=== PATIENT | female | born 2005 | race Caucasian/White ===

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

== ENCOUNTER → 2023-03-18 | Outpatient (CLI) | payer MEDICAID, SELFPAY ==
[2023-03-18 21:09] LABS: Chlamydia Trachomatis by PCR Negative (Negative); Neisserai gonorrhoeae by PCR Negative (Negative); Probe Check PASS; Sample Adequacy Control PASS; Specimen Processing Control PASS
== END | disposition home or self-care (01) ==
PROVIDERS: PCP Pediatrics; Referring Provider Nurse Practitioner Women's Health; Visit Provider Nurse Practitioner Women's Health
DX: Z11.3 Encounter for screening for infections with a predominantly sexual mode of transmission (principal)
CPT/HCPCS: 87491; 87591

== ENCOUNTER → 2024-11-26 | Outpatient (CLI) | payer OTHER, SELFPAY ==
[2024-11-26 11:16] LABS: Absolute Lymphocyte Count 2.36 X10^3/uL (0.83-4.51); Absolute Neutrophil Count 2.1 X10^3/uL (2.0-7.7); Basophil# 0.05 X10^3/uL; Eosinophil# 0.11 X10^3/uL; Eosinophils% 2.1 % (0-5); Hematocrit 43.9 % (37-47); Hemoglobin 14.2 g/dL (12.0-15.0); Lymphocyte # 2.36 X10^3/ul (0.83-4.51); Lymphocyte % 45.7 % (19-41); Mean Corp Hgb Conc 32.3 g/dL (32-36); Mean Corpuscular Hgb 29.8 pg (27.0-32.0); Mean Corpuscular Volume 92.2 fL (81-99); Mean Platelet Vol. 10.6 fl (6.2-12.0); Monocyte% 9.7 % (0-10); NRBC Flagged by Analyzer 0 % (0-5); Neutrophil # 2.13 X10^3/uL (2.7-7.7); Neutrophil % 41.3 % (47-70); Platelet Count 313 K/mm3 (150-450); RBC Distribution Width CV 12.2 % (11.6-14.6); RBC Distribution Width SD 41.4 fl (35.1-43.9); Red Blood Count 4.76 M/mm3 (4.2-5.4); White Blood Count 5.2 K/mm3 (4.4-11.0)
[2024-11-26 11:27] LABS: T4 Free Direct 0.98 ng/dL (0.76-1.46); Thyroid Stim Hormone (TSH) 0.833 uIU/mL (0.358-3.740)
== END | disposition home or self-care (01) ==
PROVIDERS: PCP Pediatrics; Referring Provider Nurse Practitioner Family; Visit Provider Nurse Practitioner Family
DX: Z13.29 Encounter for screening for other suspected endocrine disorder (principal); N91.2 Amenorrhea, unspecified
CPT/HCPCS: 36415; 84439; 84443; 85025

== ENCOUNTER → 2025-04-08 | Outpatient (CLI) | payer OTHER, SELFPAY ==
[2025-04-08 12:57] LABS: HIV Nonreactive (Nonreactive); Hepatitis B Surface Antigen Nonreactive (Nonreactive); Syphilis Antibodies Nonreactive (Nonreactive)
[2025-04-10 20:08] LABS: HCV Quant. RNA PCR HCV Not Detected IU/mL (.); HSV 1 IgG Non Reactive (Non Reactive); HSV 2 IgG Non Reactive (Non Reactive)
[2025-04-13 21:07] LABS: Chlamydia By Nucleic Acid AMP Negative (Negative); Gonococcus By Nucleic Acid AMP Negative (Negative)
== END | disposition home or self-care (01) ==
PROVIDERS: PCP Pediatrics; Referring Provider Nurse Practitioner Family; Visit Provider Nurse Practitioner Family
DX: Z11.3 Encounter for screening for infections with a predominantly sexual mode of transmission (principal); N89.8 Other specified noninflammatory disorders of vagina
CPT/HCPCS: 36415; 86695; 86696; 86703; 86780; 87070; 87205; 87340; 87491; 87522; 87591

== ENCOUNTER → 2025-09-14 | Outpatient (CLI) | payer OTHER, SELFPAY ==
[2025-09-17 06:08] LABS: Chlamydia By Nucleic Acid AMP Negative (Negative); Gonococcus By Nucleic Acid AMP Negative (Negative)
== END | disposition home or self-care (01) ==
LOC: LABSPEC 12:18
PROVIDERS: PCP Pediatrics; Referring Provider Nurse Practitioner Women's Health; Visit Provider Nurse Practitioner Women's Health
DX: Z12.4 Encounter for screening for malignant neoplasm of cervix (principal); Z11.3 Encounter for screening for infections with a predominantly sexual mode of transmission; N93.9 Abnormal uterine and vaginal bleeding, unspecified
CPT/HCPCS: 87070; 87205; 87491; 87591; 88175; G0145

== ENCOUNTER → 2025-10-05 | Outpatient (CLI) | payer OTHER, SELFPAY ==
--- NOTE | 2025-10-05 12:58 | US_ITS ---
PROCEDURE: PELVIC W/ TRANSVAGINAL 10/05/2025 REASON FOR EXAM: AUB. Frequent menses 2 times a month. LMP 09/12/2025 TECHNIQUE: Procedure Code: [id number] Modality: US Procedure: PELVIC W/ TRANSVAGINAL COMPARISON: None. FINDINGS: ENDOMETRIUM: Homogeneous. Normal thickness of 4.0 mm. No abnormal endometrial color Doppler flow. UTERUS: Retroverted. Normal size and contour measuring 7.6 x 2.5 x 4.6 cm. No fibroid detected. CERVIX: Normal size and contour. RIGHT OVARY: Normal size and appearance measuring 2.6 x 1.4 x 2.1 cm (volume 4.0 mL). Normal follicles. Normal blood flow. No adnexal mass. LEFT OVARY: Normal size and appearance measuring 3.1 x 1.6 x 2.3 cm (volume 5.7 mL). Normal follicles. Normal blood flow. No adnexal mass. FREE FLUID: Minimal left periadnexal free fluid. OTHER: Urinary bladder volume of 440.6 mL. US/Pelvic w/ Transvaginal IMPRESSION: UNREMARKABLE PELVIC ULTRASOUND. Reading Location: [id number]
--- OUTSIDE RECORDS SUMMARY | 2025-10-05 17:16 | XMS RPT_ITS | CCD ---
Author Organization [facility] ion [facility] Care Team Providers Care Central Office Operator Name Role Phone LEIDY DE PAZ DO Primary Care Physician [phone] Leidy De Paz Primary Care Provider JULIAN GILLIAM Attending Unavailable LEIDY DE PAZ Primary Care Unavailable LEIDY DE PAZ Primary Care Unavailable ANTHONY BLACK Attending Unavailable LEIDY DE PAZ Primary Care Unavailable ANDREINA AGUILAR Attending Unavailable LEIDY DE PAZ Referring Unavailable LEIDY DE PAZ Primary Care Unavailable REFERRED, SELF Referring Unavailable LEIDY DE PAZ Attending Unavailable TYLER MCCARTNEY Attending Unavailable LEIDY DE PAZ Primary Care Unavailable REFERRED, SELF Referring Unavailable NOMAN FOUNTAIN Attending Unavailable LEIDY DE PAZ Primary Care Unavailable REFERRED, SELF Referring Unavailable REFERRED, SELF Referring Unavailable LEIDY DE PAZ Attending Unavailable LEIDY DE PAZ Primary Care Unavailable REFERRED, SELF Referring Unavailable LEIDY DE PAZ Attending Unavailable LEIDY DE PAZ Primary Care Unavailable ZIA KEMP Attending Unavailable LEIDY DE PAZ Primary Care Unavailable LEIDY DE PAZ Referring Unavailable JAYLIN NOGUERA Attending Unavailable LEIDY DE PAZ Primary Care Unavailable REFERRED, SELF Referring Unavailable LEIDY DE PAZ Primary Care Unavailable REFERRED, SELF Referring Unavailable TYLER MCCARTNEY Attending Unavailable Dr. Leidy De Paz Primary Care Provider Dr. Leidy De Paz Referring Provider [phone] Serjio TELECOMMUNICATIONS FIELD ENGINEER, STEPHANY Zhang Attending Provider Dr. Leidy De Paz DO Primary Care Provider Dr. Leidy De Paz DO Referring Provider Sreekanth TELECOMMUNICATIONS FIELD ENGINEER-C, Attending Provider Sreekanth TELECOMMUNICATIONS FIELD ENGINEER-C, Referring Provider Serjio TELECOMMUNICATIONS FIELD ENGINEER, Leatha Attending Unavailable Serjio TELECOMMUNICATIONS FIELD ENGINEER, Leatha Referring Unavailable Kruepke, Leidy Primary Care Unavailable Barkman, Referring Unavailable Kruepke, Leidy Primary Care Unavailable Barkman, Attending Unavailable Kruepke, Leidy Primary Care Unavailable Kruepke, Leidy Referring Unavailable Barkman, Attending Unavailable Kruepke, Leidy Primary Care Unavailable Serjio TELECOMMUNICATIONS FIELD ENGINEER, Leatha Attending Unavailable Kruepke, Leidy Referring Unavailable Kruepke, Leidy Primary Care Unavailable Barkman, Attending Unavailable Kruepke, Leidy Referring Unavailable Barkman, Attending Unavailable Kruepke, Leidy Primary Care Unavailable Kruepke, Leidy Referring Unavailable Kruepke, Leidy Primary Care Unavailable Kruepke, Leidy Referring Unavailable Barkman, Attending Unavailable Barkman, Attending Unavailable Barkman, Referring Unavailable Kruepke, Leidy Primary Care Unavailable Allergies Allergy Classification Reported Allergen(s) Allergy Type Date of Onset Reaction(s) Facility (13 sources) diphenhydrAMINE; Translations: [diphenhydramine] Drug Allergy 7 Unknown [facility] (10 sources) Promethazine; Translations: [promethazine] Drug Allergy 8 Other [facility] Comment on above: intolerance (7 sources) Caffeine; Translations: [CAFFEINE] Drug Allergy 2 Vomiting, Other: See Comments [facility] (4 sources) Promethazine Drug Allergy 7 Unknown [facility] (1 source) diphenhydrAMINE; Translations: [DIPHENHYDRAMINE HCL] Drug Allergy 8 [facility] Rep[facility] (1 source) Caffeine Drug Allergy 5 [facility] (1 source) diphenhydrAMINE Drug Allergy 5 [facility] (1 source) Promethazine Drug Allergy 5 [facility] Medications Current Medications Medication Drug Class(es) Dates Sig (Normalized) Sig (Original) albuterol MDI (90 mcg/inh) CFC free inhalation aerosol (4 sources) Start: 05-31-2020 take 2 puff(s) by inhalation every four hours albuterol MDI (90 mcg/inh) CFC free inhalation aerosol 2 puff(s), Inhalation, q4h, # 1 EA, 0 Refill(s), Dyspnea Cough Start Date: 05/31/20 Status: Ordered buPROPion (1 source) Aminoketone Start: 01-19-2022 Wellbutrin use buPROPion Oral, 0 Refill(s) Start Date: 01/19/22 Status: Ordered Norgestrel-Ethinyl Estradiol (5 sources) Estrogen Start: 07-23-2018 Norgestrel-Ethinyl Estradiol (Cryselle-28 Tablet) 1 EACH tablet Active 1 EACH PO DAILY July 23, 2018 7:29am Start: 07-23-2018 End: 03-18-2023 Norgestrel-Ethinyl Estradiol (Cryselle-28 Tablet) 1 EACH tablet Discontinued 1 NMA PO DAILY July 23, 2018 12:00am March 18, 2023 1:49pm Start: 07-23-2018 End: 03-18-2023 Norgestrel-Ethinyl Estradiol (Cryselle-28 Tablet) 1 EACH tablet Discontinued 1 EACH PO DAILY July 23, 2018 12:00am March 18, 2023 1:49pm Start: 07-23-2018 Norgestrel-Eth inyl Estradiol (Cryselle-28 Tablet) 1 EACH tablet Active 1 EACH PO DAILY July 22, 2018 11:00pm Start: 07-23-2018 Norgestrel-Eth inyl Estradiol (Cryselle-28 Tablet) 1 EACH tablet Active 1 EACH PO DAILY July 23, 2018 12:00am fluconazole 150 mg oral tablet (1 source) Azole Antifungal Start: 04-14-2025 Fluconazole 1 50 mg tablet Active 150 mg PO Every 3 Days 2 April 14, 2025 12:00am may repeat second dose 72 hrs after first dose if symptoms persist hydrOXYzine hydrochloride 25 mg oral tablet (2 sources) Antihistamine Start: 01-13-2022 hydrOXYzine hydrochloride 25 mg oral tablet 0 Refill(s) Start Date: 01/13/22 Status: Ordered LORazepam 1 mg oral tablet (1 source) Benzodiazepine Start: 01-26-2022 End: 01-30-2022 LORazepam 1 mg oral tablet Dose : 1 mg = 1 tab(s), Oral, BID, PRN as needed for anxiety, X 4 day(s), # 7 tab(s), 0 Refill(s), 01/30/22 0:01:00 EDT, Anxiety reaction, 50 Start Date: 01/26/22 Stop Date: 01/30/22 Status: Ordered magnesium oxide 400 mg oral tablet (2 sources) Start: 01-13-2022 magnesium oxid e 400 mg oral tablet 0 Refill(s) Start Date: 01/13/22 Status: Ordered meclizine hydrochloride 25 mg oral tablet (1 source) Antiemetic Start: 09-21-2022 take 25 mg by mouth three times daily Meclizine Active 25 MG PO THREE TIMES A DAY September 21, 2022 12:00am riboflavin 100 mg oral tablet (2 sources) Start: 01-13-2022 Vitamin B2 100 mg oral tablet 0 Refill(s) Start Date: 01/13/22 Status: Ordered Tri Femynor oral tablet (4 sources) Start: 10-06-2019 take 1 tablet by mouth once daily Tri Femynor oral tablet TAKE 1 TABLET BY MOUTH EVERY DAY Start Date: 10/06/19 Status: Ordered Completed/Discontinued Medications Medication Drug Class(es) Dates Sig (Normalized) Sig (Original) bisacodyl 5 mg delayed release oral tablet (8 sources) Stimulant Laxative Start: 04-13-2022 Bisacodyl (DULCOLAX) 5 mg tab Indications: Chronic idiopathic constipation , Generalized abdominal pain Use as directed for Miralax / Gatorade Bowel Prep Kit 4 tablet 0 04/13/2022 Active Start: 02-23-2022 take 2 tablets by mo uth twice daily LAXATIVE, BISACODYL, 5 mg EC tablet TAKE 2 TABLETS (10 MG) BY MOUTH 2 TIMES DAILY FOR 1 DAY FOLLOW THE CLEAN OUT INSTRUCTIONS 0 02/23/2022 Active Comment on above: TAKE 2 TABLETS (10 M G) BY MOUTH 2 TIMES DAILY FOR 1 DAY FOLLOW THE CLEAN OUT INSTRUCTIONS Use as directed for Miralax / Gatorade Bowel Prep Kit cephalexin 500 mg oral capsule (9 sources) Cephalosporin Antibacterial Start: 3 End: 3 take 1 capsule by mouth three times daily Cephalexin 500 mg capsule Discontinued 500 mg PO THREE TIMES A DAY 07 06November 25, 2022 1:00am March 18, 2023 1:44pm Start: 01-13-2022 End: 01-20-2022 cephalexin 500 mg oral table t Dose : 500 mg = 1 tab(s), Oral, TID, X 7 day(s), # 21 tab(s), 0 Refill(s), 01/20/22 19:15:00 EST, UTI - Urinary tract infection, 52.9 Start Date: 01/13/22 Stop Date: 01/20/22 Status: Ordered Start: 10-19-2021 End: 10-26-2021 Keflex 500 mg oral capsule D ose : 500 mg = 1 cap(s), Oral, q12h, X 7 day(s), # 14 cap(s), 0 Refill(s), 10/26/21 19:18:00 EST, 52.9 Start Date: 10/19/21 Stop Date: 10/26/21 Status: Ordered Start: 03-24-2021 End: 03-31-2021 Keflex 500 mg oral capsule D ose : 500 mg = 1 cap(s), Oral, QID, # 28 cap(s), 0 Refill(s), Abdominal pain, 51.4 Start Date: 03/24/21 Stop Date: 03/31/21 Status: Ordered cloNIDine hydrochloride 0.1 mg oral tablet (1 source) Central alpha-2 Adrenergic Agonist Start: 07-23-2017 End: 04-13-2022 cloNIDine HCl (CATAPRES) 0.1 mg tablet Take 1/2 a tablet each night x 14 days, then increase to 1 tablet thereafter 30 tablet 3 07/23/2017 04/13/2022 Discontinued Comment on above: Take 1/2 a tablet ea ch night x 14 days, then increase to 1 tablet thereafter Norethindrone Ac-Eth Estradiol (2 sources) Estrogen Start: 01-07-2025 End: 04-14-2025 Norethindrone Ac-Eth Estradiol (Loestrin 12/07 (21)) 1-20 mg-mcg tablet Discontinued 1 {tbl} PO daily 63 January 07, 2025 9:29am April 14, 2025 8:55am 90 day supply. Start: 11-26-2024 End: 01-07-2025 Norethindrone Ac-Eth Estradi ol (Loestrin 12/07 (21)) 1-20 mg-mcg tablet Discontinued 1 {tbl} PO daily November 26, 2024 1:00am January 07, 2025 9:31am Gatorade Sports Drink (4 sources) Start: 04-13-2022 Gatorade Sports Drink Indications: Chronic idiopathic constipation , Generalized abdominal pain Use as directed for Miralax / Gatorade Bowel Prep Kit 0 04/13/2022 Active Comment on above: Use as directed for Miralax / Gatorade Bowel Prep Kit linaclotide 0.29 mg oral capsule (4 sources) Guanylate Cyclase-C Agonist Start: 04-13-2022 take 1 capsule by mouth once daily linaCLOtide (LINZESS) 290 mcg capsule Indications: Chronic idiopathic constipation Take 1 capsule by mouth once daily. 30 capsule 1 04/13/2022 Active Comment on above: Take 1 capsule by [facility] once daily. magnesium carbonate (1 source) End: 04-13-2022 MAGNESIUM CARBONATE ORAL Take by mouth once daily. 0 04/13/2022 Discontinued Comment on above: Take by mouth once d aily. 1 ml medroxyPROGESTERone acetate 150 mg/ml prefilled syringe (9 sources) Progestin Start: 04-30-2024 End: 11-26-2024 inject 150 mg by intramuscular injection every three months Medroxyprogesterone (Depo-Provera) 150 mg/mL syringe Discontinued 150 mg IM every 3 months August 20, 2024 10:19am November 26, 2024 9:50am Start: 03-18-2023 End: 04-30-2024 inject 150 mg by intramuscular injection every three months Medroxyprogesterone (Depo-Provera) 150 mg/mL suspension Discontinued 150 mg IM every 3 months March 18, 2023 2:04pm April 30, 2024 2:52pm Start: 12-28-2019 medroxyPROGEST ERone (DEPO-PROVERA) 150 mg/mL injection Inject 150 mg intramuscularly every 12 weeks. 0 12/28/2019 Active Comment on above: Inject 150 mg intram uscularly every 12 weeks. Naproxen (4 sources) Nonsteroidal Anti-inflammatory Drug NAPROXEN SODIUM (ALEVE ORAL) Take by mouth as needed. 0 Active Comment on above: Take by mouth as nee ded. ondansetron 4 mg disintegrating oral tablet (4 sources) Serotonin-3 Receptor Antagonist Start: take 1 tablet by mouth every eight hours as needed for nausea ondansetron orally disintegrating (ZOFRAN ODT) 4 mg disintegrating tablet Take by mouth. TAKE 1 TABLET BY MOUTH EVERY 8 HOURS NEEDED FOR NAUSEA 0 01/22/2022 Active Comment on above: Take by mouth. TAKE 1 TABLET BY MOUTH EVERY 8 HOURS NEEDED FOR NAUSEA oseltamivir 75 mg oral capsule (3 sources) Neuraminidase Inhibitor Start: End: take 1 capsule by mouth twice daily Oseltamivir (Tamiflu) 75 mg capsule Discontinued 75 mg PO TWICE A DAY 10 November 25, 2022 1:00am March 18, 2023 1:44pm phenazopyridine hydrochloride 200 mg oral tablet (3 sources) Start: End: take 1 tablet by mouth three times daily as needed for pain Phenazopyridine (Pyridium) 200 mg tablet Discontinued 200 mg PO THREE TIMES A DAY as needed for pain 6 November 25, 2022 3:41am March 18, 2023 1:44pm polyethylene glycol 3350 27731 mg powder for oral solution (8 sources) Osmotic Laxative Start: polyethylene glycol 3350 (MIRALAX, GLYCOLAX) 17 gram/dose powder Indications: Chronic idiopathic constipation , Generalized abdominal pain Use as directed for Miralax / Gatorade Bowel Prep Kit 238 g 0 04/13/2022 Active Start: 02-22-2022 polyethylene g lycol 3350 (MIRALAX, GLYCOLAX) 17 gram/dose powder TAKE 136 G BY MOUTH ONCE FOR 1 DOSE MIX IN 8 OUNCES OF FLUID. 0 02/22/2022 Active Comment on above: TAKE 136 G BY MOUTH ONCE FOR 1 DOSE MIX IN 8 OUNCES OF FLUID. Use as directed for Miralax / Gatorade Bowel Prep Kit RIBOFLAVIN, VITAMIN B2, (RIBOFLAVIN ORAL) (1 source) End: 04-13-2022 RIBOFLAVIN, VITAMIN B2, (RIBOFLAVIN ORAL) Take by mouth once daily. 0 04/13/2022 Discontinued Comment on above: Take by mouth once d aily. sertraline 25 mg oral tablet (1 source) Serotonin Reuptake Inhibitor Start: 01-10-2021 End: 04-13-2022 take 1 tablet by mouth once daily sertraline (ZOLOFT) 25 mg tablet TAKE 1 TABLET (25 MG) BY MOUTH DAILY AFTER ONE WEEK INCREASE DOSING TO 50 MG ONCE PER DAY. 0 01/10/2021 04/13/2022 Discontinued Comment on above: TAKE 1 TABLET (25 MG ) BY MOUTH DAILY AFTER ONE WEEK INCREASE DOSING TO 50 MG ONCE PER DAY. Problems Active Problems Problem Classification Problem Date Documented Da te Episodic/Chronic Abdominal pain (2 sources) Generalized abdominal pain; Translations: [Generalized abdominal pain] Episodic Allergic reactions (1 source) Allergic disposition; Translations: [Allergy, unspecified, initial encounter] Onset: 12-16-2021 Episodic Anxiety disorders (7 sources) Generalized anxiety disorder; Translations: [Generalized anxiety disorder] Onset: 08-01-2017 Chronic Conditions associated with dizziness or vertigo (4 sources) Benign paroxysmal positional vertigo; Translations: [Benign paroxysmal vertigo, unspecified ear] 09-29-2022 Episodic Contraceptive and procreative management (1 source) Encounter for contraceptive management, unspecified; Translations: [Unspecified contraceptive management] 03-18-2023 Episodic Disorders usually diagnosed in infancy, childhood, or adolescence (8 sources) Attention deficit hyperactivity disorder, predominantly inattentive type; Translations: [Other specified behavioral and emotional disorders with onset usually occurring in childhood and adolescence] Onset: 08-14-2017 08-14-2017 Chronic Fever of unknown origin (3 sources) Fever; Translations: [Fever, unspecified] 12-03-2022 Episodic Headache; including migraine (5 sources) Migraine; Translations: [Migraine, unspecified, not intractable, without status migrainosus] 07-17-2019 Chronic Influenza (3 sources) Influenza due to Influenza B virus; Translations: [Influenza due to other identified influenza virus with other respiratory manifestations] 12-03-2022 Episodic Malaise and fatigue (1 source) Fatigue; Translations: [Other fatigue] Episodic Menstrual disorders (6 sources) Menorrhagia; Translations: [Excessive and frequent menstruation with regular cycle] Onset: 04-08-2025 03-18-2023 Chronic Comment on above: hx of depo provera ( migraines) Nausea and vomiting (2 sources) Nausea; Translations: [Nausea] Episodic Open wounds of extremities (5 sources) Avulsion injury of fingernail; Translations: [Unspecified open wound of unspecified finger with damage to nail, initial encounter] 09-14-2019 Episodic Other female genital disorders (1 source) Abnormal uterine and vaginal bleeding, unspecified; Translations: [Abnormal uterine and vaginal bleeding, unspecified] Onset: 09-14-2025 Chronic Other female genital disorders (2 sources) Pruritus of vagina; Translations: [Other specified noninflammatory disorders of vagina] 04-08-2025 Episodic Other gastrointestinal disorders (3 sources) Chronic idiopathic constipation; Translations: [Chronic idiopathic constipation] Chronic Other gastrointestinal disorders (2 sources) Heartburn; Translations: [Heartburn] Episodic Other injuries and conditions due to external causes (5 sources) Closed injury of head; Translations: [Unspecified injury of head, initial encounter] 09-14-2019 Episodic Other screening for suspected conditions (not mental disorders or infectious disease) (2 sources) Encounter for screening for malignant neoplasm of cervix; Translations: [Encounter for screening for other suspected endocrine disorder] Onset: 12-17-2024 Episodic Syncope (5 sources) Syncope and collapse; Translations: [Syncope and collapse] 09-14-2019 Episodic Unclassified (4 sources) None (qualifier value) 09-15-2014 Urinary tract infections (4 sources) Urinary tract infectious disease; Translations: [Urinary tract infection, site not specified] Onset: 01-13-2022 Episodic Past or Other Problems Problem Classification Problem Date Documented Date Episodic/Chronic Administrative/social admission (4 sources) School problem; Translations: [Other problems related to education and literacy] Onset: 08-01-2017 08-01-2017 Episodic Headache; including migraine (4 sources) Chronic daily headache; Translations: [Chronic daily headache] Onset: 08-01-2017 08-01-2017 Episodic Immunizations and screening for infectious disease (4 sources) Contact with and (suspected) exposure to infections with a predominantly sexual mode of transmission; Translations: [Contact with or exposure to venereal diseases] Onset: 04-15-2025 03-18-2023 Episodic Other female genital disorders (1 source) Other specified noninflammatory disorders of vagina; Translations: [Other specified noninflammatory disorders of vagina] Onset: 04-08-2025 Episodic Results Test Name Value Interpretation Reference Range Facility Chlamydia/GC TOSHIA aptimaon CHLAMY,NUC ACID Negative Normal Negative [facility] Comment on above: Performed By: #### L 7000.1800, L7400.0353, M100.3200, M100.1999 #### [facility] [address] [place], [address] GC BY NUC ACID Negative Normal Negative [facility] Comment on above: Result Comment: Perf ormed at: =G - [facility] [address] [id number] Hop Picker: Vidhya Lion MD, Phone: [phone] Performed By: #### L 7000.1800, L7400.0353, M100.3200, M1.1999 #### [facility] [address] [place], [place], [id number] PAP I-G w/rfx hrHPV-Aptimaon 09-17-2025 ADEQ Comment Normal . [facility] Comment on above: Order Comment: Speci men Comment: [id number] Specimen Comment: No. of containers..01 ThinPrep Vial Result Comment: Sati sfactory for evaluation. Endocervical and/or squamous metaplastic cells (endocervical component) are present. Performed By: #### L 7000.1800, L7400.0353, M100.3200, M100.1999 #### [facility] [address] [place], [place], [id number] COMM . Normal . [facility] Comment on above: Order Comment: Speci men Comment: [id number] Specimen Comment: No. of containers..01 ThinPrep Vial Performed By: #### L 7000.1800, L7400.0353, M100.3200, M100.1999 #### [facility] [address] [place], [place], [address] COMMENT Comment Normal . [facility] Comment on above: Order Comment: Speci men Comment: [id number] Specimen Comment: No. of containers..01 ThinPrep Vial Result Comment: This liquid based ThinPrep(R) pap test was interpreted using the [employer](R) Genius(TM) Cervical Algorithm whole slide imaging system. Performed By: #### L 7000.1800, L7400.0353, M100.3200, M100.1999 #### [facility] [address] [place], [place], [address] DIAG Comment Normal . [facility] Comment on above: Order Comment: Speci men Comment: [id number] Specimen Comment: No. of containers..01 ThinPrep Vial Result Comment: NEGA TIVE FOR INTRAEPITHELIAL LESION OR MALIGNANCY. Performed By: #### L 7000.1800, L7400.0353, M100.3200, M100.1999 #### [facility] [address] [place], [address] HPV RFLX Comment Normal . [facility] Comment on above: Order Comment: Speci men Comment: [id number] Specimen Comment: No. of containers..01 ThinPrep Vial Result Comment: The HPV DNA reflex criteria were not met with this specimen result therefore, no HPV testing was performed. Performed at: [facility] [id number] [place] [address], [place], [place] [id number] Hop Picker: Jose Talbert MD, Phone: [phone] Performed at: [facility] [id number] Hop Picker: Vidhya Lion MD, Phone: [phone] Performed By: #### L 7000.1800, L7400.0353, M100.3200, M100.2000 #### [facility] [address] [place], [address] PAPSMR Comment Normal . [facility] Comment on above: Order Comment: Speci men Comment: [id number] Specimen Comment: No. of containers..01 ThinPrep Vial Result Comment: The Pap smear is a screening test designed to aid in the detection of premalignant and malignant conditions of the uterine cervix. It is not a diagnostic procedure and should not be used as the sole means of detecting cervical cancer. Both false-positive and false-negative reports do occur. Performed By: #### L 7000.1800, L7400.0353, M100.3200, M100.1999 #### [facility] [address] [place], [address] PERFORM Comment Normal . [facility] Comment on above: Order Comment: Speci men Comment: [id number] Specimen Comment: No. of containers..01 ThinPrep Vial Result Comment: Rosalie Santiago, Junior Assistant Manager (ASCP) Performed By: #### L 7000.1800, L7400.0353, M100.3200, M100.1999 #### [facility] [address] [place], [address] Genital Culture Comprehensiv tania 09-15-2025 VAC Reason for Exam: AUB Normal vaginal jayden isolated. No yeast, Gardnerella, Neisseria or beta-hemolytic Streptococcus isolated. Normal [facility] Comment on above: Performed By: #### L 7000.1800, L7400.0353, M100.3200, M100.1999 #### [facility] [address] [place], [address] Gram Stainon 09-14-2025 GS Reason for Exam: AUB Gram Stain 4+ Gram positive rods 1+ Epithelial cells No Gram negative diplococci Score = 0 Interpretation: 0-3 Normal, 4-6 Intermediate, 7-10 Positive BV Normal [facility] Comment on above: Performed By: #### L 7000.1800, L7400.0353, M100.3200, M100.2000 #### [facility] [place], [address] Diet Assistant Office Visit Reporton 09-14-2025 Diet Assistant Office Visit Report [facility] [address], [address] [place] [address] OFFICE VISIT Date of Service: 09/14/25 MR#: [id number] Acct: [id number] Name: EFRAIN ACOSTA Rep #: [id number] : 2005 Provider: STEPHANY ambriz Age/Sex: 20/F [place] [facility] [facility] [place]: Signed Intake Vital Signs 04/08/25 08:43 09/14/25 10:38 09/14/25 10:43 Height 4 ft 9 in 4 ft 9 in 4 ft 9 in Weight: 117 lb 8 oz BMI 25.4 BP 102/65 Intake Visit Reasons: Period Pain, Heavy bleeding every [address] Required: No Is patient in pain?: No Allergies caffeine Allergy (Mild, Verified 09/14/25 10:46) Vomiting diphenhydramine (From Benadryl) Adverse Reaction (Verified 09/14/25 10:46) Other promethazine (From Phenergan) Adverse Reaction (Verified 09/14/25 10:46) Other Medications ???Medication ???Instructions ???Recorded ???Confirmed ???Type norethindrone acetate 5 mg tablet 5 mg PO .COMPLEX #45 tabs 5 09/14/25 Rx Is last menstrual period known: Yes Last Menstrual Period: 09/12/25 Post menopausal: No Patient : No : No PFSH Medical History Anxiety Family History Grandfather Heart disease Myocardial infarction Grandfather Heart disease Myocardial infarction Social History household members: family housing: condominium number of children: 0 current occupational status: employed Smoking Status: Never smoker alcohol intake: never substance use type: does not use caffeine: No what type of physical activity do you participate in: weight training frequency: 5-6 times per week seatbelt use: always do you feel safe at home: Yes additional social history: Single HPI Period Pain, Heavy bleeding every 2 weeks Details: EFRAIN ACOSTA is a 20 year old who presents for having menses every 2 weeks. Condoms for contraception. Tried OCP and decided wanted to give body a break. Off OCP 6 mo. New partner Female Reproductive History Last Menstrual Period: 09/12/25 History 0 Elective abortions Hx Para Spontaneous abortions Hx # Term Pregnancies Ectopic pregnancies Hx # Pregnancies Multiple births # of living children ROS Const Constitutional: Reports system reviewed and no additional complaints, except as documented Eyes Eyes: Reports system reviewed and no additional complaints, except as documented GI GI: Denies abdominal pain or change in bowel habits : Reports as per HPI Exam Const General: cooperative and no acute distress Orientation: oriented x3 General: bladder normal to palpation External Female Exam: normal external appearance and normal appearance of the urethra Urethra: normal appearance of the urethra Speculum Exam - Vagina: normal appearance of the vagina, abnormal vaginal discharge bloody, no lesions and nontender Speculum Exam - Cervix: normal appearance of the cervix Bimanual Exam- Vagina Uterus: normal bimanual exam, uterine size normal, bladder normal to palpation, uterine shape normal, uterine mobility normal and non-tender Bimanual Exam- Adnexa, other: normal adnexae, no masses and non-tender Coding Level of Care Code Off vis,est,level 4 Diagnoses Abnormal uterine bleeding (AUB) N93.9 Possible exposure to STI Z20.2 Assessment and Plan Assessment and Plan (1) Abnormal uterine bleeding (AUB): Status: Acute (2) Possible exposure to STI: Status: Acute Orders: Orders Pelvic w/ Transvaginal Today N93.9 - Abnormal uterine and vaginal bleeding, unspecified POC Trichomonas Vaginalis Today Z11.3 - Encounter for screening for infections with a predominantly sexual mode of transmission Chlamydia/GC TOSHIA aptima Today Z11.3 - Encounter for screening for infections with a predominantly sexual mode of transmission Culture, Genital Comprehensive Today N93.9 - Abnormal uterine and vaginal bleeding, unspecified PAP I-G w/rfx hrHPV-Aptima Today Z12.4 - Encounter for screening for malignant neoplasm of cervix Medications: New norethindrone acetate 5 mg PO tid until bleeding stops X 24 hr then bid to finish Rx 45 tabs 0RF Discontinued fluconazole may repeat second dose 72 hrs after first dose if symptoms persist Discontinued Reason: Order Completed 150 mg PO Q3D 2 tabs 0RF Plan See cultures pending and call positive thin prep pap Pelvic ultrasound Rx aygestin and notify me if AUB recurs 09/14/25 1144 Date Leatha Henderson TELECOMMUNICATIONS FIELD ENGINEER TELECOMMUNICATIONS FIELD ENGINEER-C Cosigner Signature: Date (if applicable) CC: Normal [facility] Chlamydia/GC TOSHIA aptimaon CHLAMY,NUC ACID Negative Normal Negative [facility] Comment on above: Performed By: #### L 0.1800, , M1.3200 #### [facility] [address] [place], [place], [id number] GC BY NUC ACID Negative Normal Negative [facility] Comment on above: Result Comment: Perf ormed at: =G - [facility] [address] [id number] Hop Picker: Vidhya Lion MD, Phone: [phone] Performed By: #### L 0.1800, , M100.3200 #### [facility] [address] [place], [address] Genital Culture Comprehensiv tania 04-10-2025 VAC Reason for Exam: vaginal discharge No Neisseria or beta-hemolytic Streptococcus isolated. Presumptive C albicans Amount Growth 1+ Normal [facility] Comment on above: Performed By: #### L 0.1800, .1999, M100.3200 #### [facility] [address] [place], [place], [id number] HSV 1 AND 2 IgGon 04-10-2025 HSV 1 IgG Non-Reactive Normal Non Reactive [facility] Comment on above: Result Comment: Pl ease note reference interval change HSV-1 IgG testing performed using the [employer] Elecsys HSV-1 IgG assay. Performed By: #### L 3890.6006, L7000.7000, L3400.1610, L509.8002, L3890.6102 ####[facility] [address] [place], [address] HSV 2 IgG Non-Reactive Normal Non Reactive [facility] Comment on above: Result Comment: Pl ease note reference interval change Current guidelines and recommendations do not recommend routine screening for HSV-2 in asymptomatic individuals, including those that are . The detection of HSV-2 IgG antibodies in a single sample indicates previous exposure to HSV-2 but does not give information as to the site of HSV infection or the timing of exposure. The predictive value of positive and negative results depends on the population's prevalence and the pretest likelihood of HSV-2. HSV-2 IgG testing performed using the [employer] Elecsys HSV-2 IgG assay. Performed at: [address] [id number] Hop Picker: Stephen Wood MD, Phone: [phone] Performed at: [address] [id number] Hop Picker: Gil Henderson PhD, Phone: [phone] Performed By: #### L 3890.6006, L7000.7000, L3400.1610, L509.8002, L3890.6102 ####[facility] [address] [place], [place], [id number] Hepatitis C,RNA PCR Viral Lo hat designer 04-10-2025 HCV log 10 TNP Normal . [facility] Comment on above: Performed By: #### L 3890.6006, L7000.7000, L3400.1610, L509.8002, L3890.6102 ####[facility] [address] [place], [address] HCV QT RNA PCR Not detected Normal . [facility] Comment on above: Performed By: #### L 3890.6006, L7000.7000, L3400.1610, L509.8002, L3890.6102 ####[facility] [address] [place], [address] TEST INFO: Comment Normal . [facility] Comment on above: Result Comment: The quantitative range of this assay is 15 IU/mL to 100 million IU/mL. Performed By: #### L 3890.6006, L7000.7000, L3400.1610, L509.8002, L3890.6102 ####[facility] [address] [place], [address] Chlamydia trachomatis rRNA d etection by probe and target amplification methodOrdered By: Carmen Stack on 04-08-2025 C. trachomatis rRNA TOSHIA+probe Ql (Unsp spec) Negative Negative [facility] Gram Stainon 04-08-2025 GS Reason for Exam: vaginal discharge Gram Stain 3+ Gram positive rods 2+ Gram negative rods No Gram negative diplococci Score = 3 Interpretation: 0-3 Normal, 4-6 Intermediate, 7-10 Positive BV Normal [facility] Comment on above: Performed By: #### L 7000.1800, M100.2000, M100.3200 #### [facility] [address] [place], [address] Gram stainOrdered By: Carmen Stack on 04-08-2025 Microscopic observation Gram stain Nom (Unsp spec) [facility] HIVon 04-08-2025 HIV Non-Reactive Normal Nonreactive [facility] Comment on above: Result Comment: Non- Reactive Reactive Repeatedly reactive samples must be confirmed according to CDC recommended confirmatory algorithms. The subresults for either HIVAG or AHIV can be used as an aid in the selection of the confirmation algorithm for reactive samples. Send out specimens with Reactive results to [facility] for confirmation. Order the HIV antibody detection and differentiation: #[id number] Performed By: #### L 3890.6006, L7000.7000, L3400.1610, L509.8002, L3890.6102 ####[facility] [address] [place], [place], [address] L3890.6102on 04-08-2025 HEP B Surf Ag Non-Reactive Normal Nonreactive [facility] Comment on above: Result Comment: Reac tive: Presumptive evidence of HBV. Repeatedly reactive samples must be confirmed using a neutralization test (Elecsys HBsAg Confirmatory Test) Non-Reactive: HBsAg not detected; does not exclude the possibility of exposure to HBV Performed By: #### L 3890.6006, L7000.7000, L3400.1610, L509.8002, L3890.6102 ####[facility] [address] [facility] [place], [place], [id number] Laboratory - Chemistry and C hemistry - challengeOrdered By: Carmen Stack on 04-08-2025 HCG ( test) Ql (U) Negative [facility] - Microbiology an d Antimicrobial susceptibilityOrdered By: Carmen Stack on 04-08-2025 HBV surface Ag Ql (S) Non-Reactive Nonreactive [facility] Comment on above: Reactive: Presumptiv e evidence of HBV. Repeatedly reactive samples must be confirmed using a neutralization test (Elecsys HBsAg Confirmatory Test)Non-Reactive: HBsAg not detected; does not exclude the possibility of exposure to HBV Neisseria gonorrhoeae nuclei c acid detection by amplified probe techniqueOrdered By: Carmen Stack on 04-08-2025 N. gonorrhoeae DNA TOSHIA+probe Ql (Unsp spec) Negative Negative [facility] Comment on above: Performed at: =[address] [id number] Director: Vidhya Lion MD, Phone: [phone] No Panel InformationOrdered By: Carmen Stack on 04-08-2025 Addendum Document Comment . [facility] Comment on above: The quantitative ran ge of this assay is 15 IU/mL to 100million IU/mL. HIV (1&2) Antibody Non-Reactive Nonreactive [facility] Comment on above: Non-ReactiveReactive Repeatedly reactive samples must be confirmed according to CDC recommended confirmatory algorithms. The subresults for either HIVAG or AHIV can be used as an aid in the selection of the confirmation algorithm for reactive samples.Send out specimens with Reactive results to [facility] for confirmation.Order the HIV antibody detection and differentiation: #[id number] POC Trichomonas (Rapid) Negative [facility] Diet Assistant Office Visit Reporton 04-08-2025 Diet Assistant Office Visit Report [facility] [address], [address] [place] [address] OFFICE VISIT Date of Service: 04/08/25 MR#: [id number] Acct: [id number] Name: EFRAIN ACOSTA Rep #: [id number] : 2005 Provider: STEPHANY Miller Age/Sex: 19/F [place] [facility] [place]: Signed Intake Vital Signs 01/07/25 08:11 04/08/25 08:37 04/08/25 08:43 Height 4 ft 9 in 4 ft 9 in 4 ft 9 in Weight: 122 lb 121 lb 4 oz BMI 26.4 26.2 BP 101/68 108/73 Intake Visit Reasons: Discuss Control Options *$40 copay Chief Complaint: Discuss control options Road Worker Required: No Is patient in pain?: No Allergies caffeine Allergy (Mild, Verified 04/08/25 08:37) Vomiting diphenhydramine (From Benadryl) Adverse Reaction (Verified 04/08/25 08:37) Other promethazine (From Phenergan) Adverse Reaction (Verified 04/08/25 08:37) Other Medications ???Medication ???Instructions ???Recorded ???Confirmed ???Type norethindrone acetate 1 mg-ethinyl 1 tab PO QDAY #63 tabs 01/07/25 04/08/25 Rx estradiol 20 mcg tablet (Loestrin) Is last menstrual period known: No Post menopausal: No Patient : No : No Control Method: OCP PFSH Medical History Anxiety Family History Grandfather Heart disease Myocardial infarction Grandfather Heart disease Myocardial infarction Social History household members: family housing: condominium number of children: 0 current occupational status: employed Smoking Status: Never smoker alcohol intake: never substance use type: does not use caffeine: No what type of physical activity do you participate in: weight training frequency: 5-6 times per week seatbelt use: always do you feel safe at home: Yes additional social history: Single HPI Discuss Control Options *$40 copay Details: EFRAIN ACOSTA is a 19 year old who presents for follow up after being on OCP. She reports since going off depo and being on Loestrin she has not had a menses. She is interested in going off control completely to give her body a break. She would also like to be tested for STD's as she did have a breakup with a boyfriend. She reports she has recently been experiencing vaginal itching but denies a discharge or odor. History 0 Elective abortions Hx Para Spontaneous abortions Hx # Term Pregnancies Ectopic pregnancies Hx # Pregnancies Multiple births # of living children ROS Const Constitutional: Reports system reviewed and no additional complaints, except as documented; Denies body ache, chills, fatigue or fever(s) Eyes Eyes: Denies change in vision Cardio Card: Denies chest pain at rest or palpitations Resp Resp: Denies cough or dyspnea : Reports system reviewed and no additional complaints, except as documented and vaginal pruritus; Denies genital lesions, pelvic pain, vaginal discharge, vaginal dryness or vaginal odor Skin Skin/Breast: Denies rash Exam Const General: cooperative, healthy appearing, comfortable, no acute distress, well groomed and well hydrated Nutritional Appearance: well nourished Orientation: alert, awake and oriented x3 Eyes General: appearance normal, both eyes and all related structures Resp Effort Inspection: normal respiratory effort, able to speak in complete sentences and symmetric chest movement External Female Exam: normal appearance of the urethra and other (kissing lesions to vaginal introitus) Urethra: normal appearance of the urethra Speculum Exam - Vagina: normal appearance of the vagina, abnormal vaginal discharge white, not erythematous and no lesions Speculum Exam - Cervix: normal appearance of the cervix Bimanual Exam- Adnexa, other: normal adnexae and no masses Skin General: no rashes or lesions noted Neuro General: patient alert, patient awake, patient oriented x3 and moves all extremities Psych Appearance: grossly normal Mental Status: mental status grossly normal Affect: normal affect Speech and Movement: speech and movement normal Attitude: cooperative Results POC Urine Office , Urine Negative Last Edit by Coleen Mcgill on 04/08/25 09:16 Office Trichomonas Vaginalis Office Trichomonas vaginalis Negative Last Edit by Coleen Mcgill on 04/08/25 10:00 Coding Level of Care Code Established Pt Off vis,est,level 3 Patient Type Established Diagnoses Menorrhagia with regular cycle N92.0 Vaginal itching N89.8 Possible exposure to STI Z20.2 Assessment and Plan Assessment and Plan (1) Menorrhagia with regular cycle: Sta (more content not included)... Normal [facility] Serum herpes simplex virus 2 antibody assay by immunoassay (units/volume)Ordered By: Carmen Stack on 04-08-2025 HSV 2 Ab IA Qn (S) Non-Reactive Non Reactive [facility] Comment on above: Please note refere nce interval changeCurrent guidelines and recommendations do not recommendroutine screening for HSV-2 in asymptomatic individuals,including those that are . The detection of HSV-2IgG antibodies in a single sample indicates previousexposure to HSV-2 but does not give information as to thesite of HSV infection or the timing of exposure. Thepredictive value of positive and negative results dependson the population's prevalence and the pretest likelihoodof HSV-2. HSV-2 IgG testing performed using the RocheElecsys HSV-2 IgG assay.Performed at: [employer] [id number] Director: Stephen Wood MD, Phone: [phone] at: [facility] [employer] [id number] Director: Gil Henderson PhD, Phone: [phone] Serum or plasma hepatitis C virus RNA measurement by probe and target amplification mOrdered By: Carmen Stack on 04-08-2025 HCV RNA TOSHIA+probe Qn Not detected . [facility] Syphilis Antibodieson 2024 Syphilis Abs Non-Reactive Normal Nonreactive [facility] Comment on above: Performed By: #### L 3890.6006, L7000.7000, L3400.1610, L509.8002, L3890.6102 ####[facility] [address] [place], [address] Diet Assistant Office Visit Reporton 01-07-2025 Diet Assistant Office Visit Report [facility] [address], [address] [place] [address] OFFICE VISIT Date of Service: 01/07/25 MR#: [id number] Acct: [id number] Name: EFRAIN ACOSTA Rep #: [id number] : 2005 Provider: STEPHANY Miller Age/Sex: 19/F [place] [facility] [place]: Signed Intake Vital Signs 11/26/24 08:47 01/07/25 08:11 Height 4 ft 9 in 4 ft 9 in Weight: 120 lb 122 lb BMI 25.9 26.4 BP 101/70 101/68 Intake Visit Reasons: [address] Worker Required: No Is patient in pain?: No Allergies caffeine Allergy (Mild, Verified 01/07/25 08:11) Vomiting diphenhydramine (From Benadryl) Adverse Reaction (Verified 01/07/25 08:11) Other promethazine (From Phenergan) Adverse Reaction (Verified 01/07/25 08:11) Other Medications ???Medication ???Instructions ???Recorded ???Confirmed ???Type norethindrone acetate 1 mg-ethinyl 1 tab PO QDAY #63 tabs 01/07/25 01/07/25 Rx estradiol 20 mcg tablet (Loestrin) Post menopausal: No Patient : No : No Control Method: ocp- loestrin [facility] Medical History Anxiety Family History Grandfather Heart disease Myocardial infarction Grandfather Heart disease Myocardial infarction Social History household members: family housing: [facility] [place] number of children: 0 current occupational status: employed Smoking Status: Never smoker alcohol intake: never substance use type: does not use caffeine: No what type of physical activity do you participate in: weight training frequency: 5-6 times per week seatbelt use: always do you feel safe at home: Yes additional social history: Single HPI 6 wk med check Details: EFRAIN ACOSTA is a 19 year old who presents for OCP med check. She is happy with medication. Reports she noticed headaches the first week or two however these have improved and denies any side effects now. Periods are regular. Would like to continue. History 0 Elective abortions Hx Para Spontaneous abortions Hx # Term Pregnancies Ectopic pregnancies Hx # Pregnancies Multiple births # of living children ROS Const Constitutional: Reports system reviewed and no additional complaints, except as documented Eyes Eyes: Denies change in vision Cardio Card: Denies chest pain at rest or palpitations Resp Resp: Denies cough or dyspnea : Reports system reviewed and no additional complaints, except as documented Skin Skin/Breast: Denies rash Psych Psych: Denies anxiety or depression Exam Const General: cooperative, healthy appearing, comfortable, no acute distress, well groomed and well hydrated Nutritional Appearance: well nourished Orientation: alert, awake and oriented x3 HENMT Head: normal to inspection and normocephalic Ears: hearing grossly normal bilaterally and external ears normal Nose: external nose normal Face and sinus: normal facial exam Eyes General: appearance normal, both eyes and all related structures Resp Effort Inspection: normal respiratory effort, able to speak in complete sentences and symmetric chest movement Cardio Rate: regular rate Rhythm: regular rhythm Heart Sounds: S1 normal and S2 normal Skin General: no rashes or lesions noted Neuro General: patient alert, patient awake, patient oriented x3 and moves all extremities Psych Appearance: grossly normal Mental Status: mental status grossly normal Affect: normal affect Speech and Movement: speech and movement normal Attitude: cooperative Coding Level of Care Code Established Pt Off vis,est,level 3 Patient Type Established Diagnoses Menorrhagia with regular cycle N92.0 Assessment and Plan Assessment and Plan (1) Menorrhagia with regular cycle: Status: Acute Comment: hx of depo provera (migraines) Plan: Doing well with Loestrin. Continue and refills sent. Follow up 1 year/for routine yearly check up. Call office sooner with questions/concerns. Medications: Changed From norethindrone ac-eth estradiol 1-20 mg-mcg (Loestrin) 1 TAB PO QDAY 63 tabs 0RF To norethindrone ac-eth estradiol 1-20 mg-mcg (Loestrin) 90 day supply. 1 TAB PO QDAY 63 tabs 4RF 01/07/25 0857 Date Carmen Stack TELECOMMUNICATIONS FIELD ENGINEER-C Cosigner Signature: Date (if applicable) CC: Normal [facility] CBC W/Diff, Automatedon 01-0 -2024 Absolute Lymph 2.36 X10 3/uL Normal 0.83-4.51 [facility] Comment on above: Performed By: #### L 506.0400, L501.9520, L100.0100 ####[facility] [address] [place], [address] Absolute Neut 2.1 X10 3/uL Normal 2.0-7.7 [facility] Comment on above: Performed By: #### L 506.0400, L501.9520, L100.0100 ####[facility] [address] [place], [address] Basophils/100 WBC (Bld) 1.0 % Normal 0-1 [facility] Comment on above: Performed By: #### L 506.0400, L501.9520, L100.0100 ####[facility] [address] [place], [address] Eosinophils/100 WBC (Bld) 2.1 % Normal 0-5 [facility] Comment on above: Performed By: #### L 506.0400, L501.9520, L100.0100 ####[facility] [address] [place], [address] Erythrocyte distribution width (RBC) [Ratio] 12.2 % Normal 11.6-14.6 [facility] Comment on above: Performed By: #### L 506.0400, L501.9520, L100.0100 ####[facility] [address] [place], [address] Hematocrit (Bld) [Volume fraction] 43.9 % Normal 37-47 [facility] Comment on above: Performed By: #### L 506.0400, L501.9520, L100.0100 ####[facility] [address] [place], [address] Hemoglobin (Bld) [Mass/Vol] 14.2 g/dL Normal 12.0-15.0 [facility] Comment on above: Performed By: #### L 506.0400, L501.9520, L100.0100 ####[facility] [address] [place], [address] IG% 0.200 Normal 0.0-0.9 [facility] Comment on above: Result Comment: IG% - Immature Granulocytes (promyelocytes, myelocytes and metamyelocytes) > 1% indicates that a LEFT SHIFT is Present. Performed By: #### L 506.0400, L501.9520, L100.0100 ####[facility] [address] [place], [address] Lymphocytes/100 WBC (Bld) 45.7 % High 19-41 [facility] Comment on above: Performed By: #### L 506.0400, L501.9520, L100.0100 ####[facility] [address] [place], [address] MCH (RBC) [Entitic mass] 29.8 pg Normal 27.0-32.0 [facility] Comment on above: Performed By: #### L 506.0400, L501.9520, L100.0100 ####[facility] [address] [place], [address] MCHC (RBC) [Mass/Vol] 32.3 g/dL Normal 32-36 [facility] Comment on above: Performed By: #### L 506.0400, L501.9520, L100.0100 ####[facility] [address] [place], [address] MCV (RBC) [Entitic vol] 92.2 fL Normal 81-99 [facility] Comment on above: Performed By: #### L 506.0400, L501.9520, L100.0100 ####[facility] [address] [place], [address] Monocytes/100 WBC (Bld) 9.7 % Normal 0-10 [facility] Comment on above: Performed By: #### L 506.0400, L501.9520, L100.0100 ####[facility] [address] [place], [address] Neutrophils/100 WBC (Bld) 41.3 % Low 47-70 [facility] Comment on above: Performed By: #### L 506.0400, L501.9520, L100.0100 ####[facility] [address] [place], [address] Nucleated RBC (Bld) [#/Vol] 0 10*3/uL Normal 0-5 [facility] Comment on above: Performed By: #### L 506.0400, L501.9520, L100.0100 ####[facility] [address] [place], [address] Platelet mean volume (Bld) [Entitic vol] 10.6 fL Normal 6.2-12.0 [facility] Comment on above: Performed By: #### L 506.0400, L501.9520, L100.0100 ####[facility] [address] [place], [address] Platelets (Bld) [#/Vol] 313 10*3/uL Normal 150-450 [facility] Comment on above: Performed By: #### L 506.0400, L501.9520, L100.0100 ####[facility] [address] [place], [address] RBC (Bld) [#/Vol] 4.76 10*6/uL Normal 4.2-5.4 [facility] Comment on above: Performed By: #### L 506.0400, L501.9520, L100.0100 ####[facility] [address] [place], [address] RDW SD 41.4 fl Normal 35.1-43.9 [facility] Comment on above: Performed By: #### L 506.0400, L501.9520, L100.0100 ####[facility] [address] [place], [address] WBC (Bld) [#/Vol] 5.2 10*3/uL Normal 4.4-11.0 [facility] Comment on above: Performed By: #### L 506.0400, L501.9520, L100.0100 ####[facility] [address] [place], [address] Diet Assistant Office Visit Reporton 11-26-2024 Diet Assistant Office Visit Report [facility] [address], [address] [address] [place] [address] OFFICE VISIT Date of Service: 11/26/24 MR#: [id number] Acct: [id number] Name: EFRAIN ACOSTA JOVITA Rep #: [id number] : 2005 Provider: STEPHANY Miller Age/Sex: 19/F [place] [facility] [place]: Signed Intake Vital Signs 05/12/24 11:35 11/26/24 08:47 Height 4 ft 9 in 4 ft 9 in Weight: 118 lb 4 oz 120 lb BMI 25.5 25.9 BP 108/66 101/70 Intake Visit Reasons: Stomach pain Is patient in pain?: No Allergies caffeine Allergy (Mild, Verified 11/26/24 08:50) Vomiting diphenhydramine (From Benadryl) Adverse Reaction (Verified 11/26/24 08:50) Other promethazine (From Phenergan) Adverse Reaction (Verified 11/26/24 08:50) Other Medications ???Medication ???Instructions ???Recorded ???Confirmed ???Type norethindrone acetate 1 mg-ethinyl 1 tab PO QDAY #63 tabs 11/26/24 11/26/24 Rx estradiol 20 mcg tablet (Loestrin) Is last menstrual period known: Yes Last Menstrual Period: 11/25/24 Post menopausal: No Patient : No : No Control Method: none PFSH Medical History Anxiety Family History Grandfather Heart disease Myocardial infarction Grandfather Heart disease Myocardial infarction Social History (Updated 04/30/24 @ 14:52 by Kristal Mireles) household members: [facility] number of children: 0 current occupational status: employed Smoking Status: Never smoker alcohol intake: never substance use type: does not use caffeine: No what type of physical activity do you participate in: weight training frequency: 5-6 times per week seatbelt use: always do you feel safe at home: Yes additional social history: Single HPI Stomach pain Details: EFRAIN ACOSTA is a 19 year old who presents discussion of different control. She has her last depo injection in April; she did not renew this and did not have dosing in July. Since going off of Depo she has noticed an improvement in migraines, however her menses has become more painful. She has just started her menses yesterday. Currently bleeding. She is not currently sexually active-Greater than 6 months ago. Female Reproductive History Last Menstrual Period: 11/25/24 Cycle Length: 21-35 Questions: metorrhagia: Yes, sexually active: No (greater than 6 months ago. ), dyspareunia: No and PCB: No History 0 Elective abortions Hx Para Spontaneous abortions Hx # Term Pregnancies Ectopic pregnancies Hx # Pregnancies Multiple births # of living children ROS Const Constitutional: Denies fatigue, fever(s) or weight loss Cardio Card: Denies chest pain or palpitations Resp Resp: Denies cough or dyspnea on exertion GI GI: Denies abdominal pain, bloating, change in stool character, constipation or vomiting : Reports as per HPI, menorrhagia and metrorrhagia; Denies difficulty voiding, pelvic pain, urinary frequency, urinary incontinence, urinary urgency, vaginal discharge, vaginal dryness, vaginal odor or vaginal pruritus Psych Psych: Denies anxiety or depression Exam Const General: cooperative, healthy appearing, comfortable, no acute distress, well groomed and well hydrated Nutritional Appearance: well nourished Orientation: alert, awake and oriented x3 HENMT Head: normal to inspection and normocephalic Ears: hearing grossly normal bilaterally and external ears normal Nose: external nose normal Face and sinus: normal facial exam Eyes General: appearance normal, both eyes and all related structures Neck Neck: normal visual inspection, full ROM and no lymphadenopathy Thyroid: thyroid normal Chest Chest palpation inspection: normal inspection of the chest Resp Effort Inspection: normal respiratory effort, able to speak in complete sentences and symmetric chest movement Cardio Rate: regular rate Rhythm: regular rhythm Heart Sounds: S1 normal and S2 normal Skin General: no rashes or lesions noted Neuro General: patient alert, patient awake, patient oriented x3 and moves all extremities Psych Appearance: grossly normal Mental Status: mental status grossly normal Affect: normal affect Speech and Movement: speech and movement normal Attitude: cooperative Coding Level of Care Code Established Pt Off vis,est,level 3 Patient Type Established Diagnoses Menorrhagia with regular cycle N92.0 Assessment and Plan Assessment and Plan (1) Menorrhagia with regular cycle: Status: Acute Comment: hx of depo provera (migraines) Plan: currently on menses; advised Saturday start of Loestrin. Labs ordered as well. Discussed risks/benefits o (more content not included)... Normal [facility] T4 Free Directon 11-26-2024 T4 FREE DIRECT 0.98 ng/dL Normal 0.76-1.46 [facility] Comment on above: Performed By: #### L 506.0400, L501.9520, L100.0100 ####[facility] [id number] [place], [place], [address] Thyroid Stim Hormone (TSH)on 11-26-2024 TSH 0.833 uIU/mL Normal 0.358-3.740 [facility] Comment on above: Performed By: #### L 506.0400, L501.9520, L100.0100 ####[facility] [id number] [place], [place], [address] Basophil percentageOrdered B y: Leatha Bassett on 03-18-2023 C. trachomatis DNA TOSHIA+probe Ql (Unsp spec) Negative Negative [facility] Neisseria gonorrhoeae detect ion by PCROrdered By: Leatha Bassett on 03-18-2023 N. gonorrhoeae DNA TOSHIA+probe Ql (Cervical mucus) Negative Negative [facility] Culture, urineOrdered By: Lai Schreiber on 11-27-2022 Bacteria identified Cx Nom (U) Escherichia coli [facility] Absolute lymphocyte countOrd ered By: Kiran Schreiber on 11-25-2022 Lymphocytes Auto (Unsp spec) [#/Vol] 1.10 10*3/uL 0.83-4.51 [facility] Basophil percentageOrdered B y: Kiran Schreiber on 11-25-2022 Basophil percentage >100 SEEN /hpf 0-5 [facility] Basophils/100 WBC (Bld) 0.5 % 0-1 [facility] Chloride [Moles/Vol] 105 mmol/L 98-107 [facility] Eosinophils/100 WBC (Bld) 0.1 % 0-5 [facility] Glucose [Mass/Vol] 110 mg/dL 74-106 [facility] Comment on above: Fasting Glucose resu lt from 100 to 125 mg/dL suggests IMPAIRED HOMEOSTASIS per A.D.A. criteria. Neutrophils (Bld) [#/Vol] 8.7 10*3/uL 2.0-7.7 [facility] Neutrophils/100 WBC (Bld) 78.3 % 47-70 [facility] Potassium [Moles/Vol] 3.6 mmol/L 3.5-5.1 [facility] Sodium [Moles/Vol] 135 mmol/L 136-145 [facility] WBC (Bld) [#/Vol] 11.1 10*3/uL 4.4-11.0 [facility] Bilirubin Test strip Ql (U)O rdered By: Kiran Schreiber on 11-25-2022 Bilirubin Ql (U) Negative Negative [facility] Blood erythrocytes count (nu mber/volume)Ordered By: Kiran Schreiber on 11-25-2022 RBC (Bld) [#/Vol] 4.80 10*6/uL 4.2-5.4 [facility] Blood hemoglobin measurement (mass/volume)Ordered By: Kiran Schreiber on 11-25-2022 Hemoglobin (Bld) [Mass/Vol] 14.2 g/dL 12.0-15.0 [facility] Blood lymphocytes/100 leukoc ytesOrdered By: Kiran Schreiber on 11-25-2022 Lymphocytes/100 WBC (Bld) 9.9 % 19-41 [facility] Blood monocytes/100 leukocyt esOrdered By: Kiran Schreiber on 11-25-2022 Monocytes/100 WBC (Bld) 10.7 % 0-10 [facility] Blood platelet mean volumeOr dered By: Kiran Schreiber on 11-25-2022 Platelet mean volume (Bld) [Entitic vol] 9.5 fL 6.2-12.0 [facility] Determination of erythrocyte mean corpuscular volume (MCV)Ordered By: Kiran Schreiber on 11-25-2022 MCV (RBC) [Entitic vol] 87.7 fL 81-99 [facility] Hematocrit Auto (Bld) [Volum e fraction]Ordered By: Kiran Schreiber on 11-25-2022 Hematocrit (Bld) [Volume fraction] 42.1 % 37-47 [facility] Influenza virus A and B and SARS-CoV-2 (COVID-19) Ag panel - Upper respiratory specimOrdered By: Kiran Schreiber on 11-25-2022 SARS-CoV-2 & FLU Antigen (Rapid) Influenzae B [facility] Ketones Test strip Ql (U)Ord ered By: Kiran Schreiber on 11-25-2022 Ketones Ql (U) 50 mg/dl Negative [facility] Laboratory - Chemistry and C hemistry - challengeOrdered By: Kiran Schreiber on 11-25-2022 HCG ( test) Ql (U) Negative [facility] Comment on above: Very dilute urine sp ecimens, as indicated by a low specificgravity, may not contain customer engagement representative levels of hCG. If is still suspected, a first morning urinespecimen should be collected 48 hours later and tested. CO2 [Moles/Vol] 22.0 mmol/L 21.0-32.0 [facility] Urea nitrogen/Creatinine [Mass ratio] 5.9 mg/mg 10-20 [facility] Laboratory - Hematology and Cell countsOrdered By: Kiran Schreiber on 11-25-2022 Erythrocyte distribution width (RBC) [Entitic vol] 37.8 fL 35.1-43.9 [facility] Erythrocyte distribution width (RBC) [Ratio] 11.7 % 11.6-14.6 [facility] Immature granulocytes/100 WBC (Bld) 0.500 % 0.0-0.9 [facility] Comment on above: IG% - Immature Granu locytes (promyelocytes, myelocytes and metamyelocytes) > 1% indicates that a LEFT SHIFT is Present. MCH (RBC) [Entitic mass] 29.6 pg 27.0-32.0 [facility] Nucleated RBC/100 WBC (Bld) [Ratio] 0 % 0-5 [facility] MCHC Auto (RBC) [Mass/Vol]Or dered By: Kiran Schreiber on 11-25-2022 MCHC (RBC) [Mass/Vol] 33.7 g/dL 32-36 [facility] Mucus LM Ql (Urine sed)Order ed By: Kiran Schreiber on 11-25-2022 Mucus Ql (Urine sed) 0 SEEN /hpf [facility] Nitrite Test strip Ql (U)Ord ered By: Kiran Schreiber on 11-25-2022 Nitrite Ql (U) Positive Negative [facility] No Panel InformationOrdered By: Kiran Schreiber on 11-25-2022 Estimated Creatinine Clearance Calc 88.71 ml/min [facility] Estimated GFR (MDRD) Amer 112 mL/min >60 [facility] Comment on above: GFR Calc Estimated GFR (MDRD) Non-Af Amer 92 mL/min >60 [facility] Comment on above: Non- GFR Calc Platelets bldOrdered By: Victor Hugo Schreiber on 11-25-2022 Platelets (Bld) [#/Vol] 242 10*3/uL 150-450 [facility] Protein Test strip Ql (U)Ord ered By: Kiran Schreiber on 11-25-2022 Protein Ql (U) 100 mg/dl Negative [facility] Serum or plasma calcium braxton urement (mass/volume)Ordered By: Kiran Schreiber on 11-25-2022 Calcium [Mass/Vol] 8.9 mg/dL 8.5-10.1 [facility] Serum or plasma creatinine m easurement (mass/volume)Ordered By: Kiran Schreiber on 11-25-2022 Creatinine [Mass/Vol] 0.84 mg/dL 0.55-1.02 [facility] Comment on above: The validity of the calculated GFR & GFRAA in patients over 70 years has not been determined. Clinical correlation is essential. Serum or plasma urea nitroge n measurement (mass/volume)Ordered By: Kiran Schreiber on 11-25-2022 Urea nitrogen [Mass/Vol] 5 mg/dL 7-18 [facility] Squamous epithelial cells de tection in urine sediment by light microscopyOrdered By: Kiran Schreiber on 11-25-2022 Epithelial cells.squamous LM Ql (Urine sed) 0-5 SEEN /hpf 5-10 [facility] Thin prep Papanicolaou smear with manual screeningOrdered By: Kiran Schreiber on 11-25-2022 Thin prep Papanicolaou smear with manual screening 8 5-15 [facility] Urine blood detectionOrdered By: Kiran Schreiber on 11-25-2022 RBC Ql (U) 250 /ul Negative [facility] RBC Ql (U) 10-25 SEEN /hpf 0-5 [facility] Urine clarityOrdered By: Victor Hugo Schreiber on 11-25-2022 Clarity (U) Cloudy Clear [facility] Urine color determinationOrd ered By: Kiran Schreiber on 11-25-2022 Color (U) Yellow Yellow [facility] Urine glucose detectionOrder ed By: Kiran Schreiber on 11-25-2022 Glucose Ql (U) Normal mg/dl Normal [facility] Urine leukocyte esterase det ection by dipstickOrdered By: Kiran Schreiber on 11-25-2022 Leukocyte esterase Test strip Ql (U) 500 /ul Negative [facility] Urine pHOrdered By: Kiran nolan on 11-25-2022 pH (U) 7.0 [pH] 5.0 - 8.0 [facility] Urine sediment bacteria coun t by microscopy (number/high power field)Ordered By: Kiran Schreiber on 11-25-2022 Bacteria LM.HPF (Urine sed) [#/Area] 3 /[HPF] None Seen [facility] Urine specific gravity measu rementOrdered By: Kiran Schreiber on 11-25-2022 Specific gravity (U) [Rel density] 1.005 1.002-1.030 [facility] Urobilinogen Auto test strip Ql (U)Ordered By: Kiran Schreiber on 11-25-2022 Urobilinogen Ql (U) Normal mg/dl Normal [facility] Progress Noteon 06-12-2022 Director Rehabilitation Program Authentication Interface Message Text Patient/Family did not come to the appointment. Will await further follow up to help in patient care. Agustín Blanton MD P - [phone] 06/12/2022 Normal [facility] ANES POSTPROC EVALon 022 ANES POSTPROC EVAL HNO ID: [id number] Author: Viri Linn APRN.[facility] Service: Anesthesiology Author Type: Nurse Manufacturing Engineering Technologist Type: Anesthesia Postprocedure Evaluation Filed: 04/26/2022 2:13 PM Note Text: POST ANESTHESIA EVALUATION NOTE : 2005 Procedure Summary Date: 04/26/22 Room / Location: Ambulatory Surgery Anesthesia Start: 1346 Anesthesia Stop: 1413 Procedures: COLONOSCOPY DIAGNOSTIC EGD DIAGNOSTIC Diagnosis: Chronic idiopathic constipation Generalized abdominal pain Heartburn Nausea (Abdominal pain) (Change in bowel habits) (Epigastric abdominal pain) Scheduled Providers: Ladarius Gutierrez MD Responsible Provider: Viri Kaveh, RENAL NURSE.[facility] Anesthesia Type: MAC ASA Status: 1 Anesthesia Type: MAC Last Vitals Vitals Value Taken Time BP 103/64 04/26/22 1409 Temp 36.3 ?C (97.3 ?F) 04/26/22 1409 Pulse 73 04/26/22 1409 Resp 18 04/26/22 1409 SpO2 95 % 04/26/22 1409 Post Anesthesia Patient Status Patient Evaluation: PACU. PACU/ICU Patient Condition: stable. Anticipated Disposition: phase 2 then home. Neurological Status: aware and responsive. Pulmonary Status: breathing comfortably on room air Airway Control: returned to baseline unsupported. Cardiovascular Status: stable. Pain Management: clinically adequate - multimodal analgesia pain management approach Postoperative Hydration: acceptable. Intraoperative Events: no significant anesthesia events Post Operative Nausea/Vomiting Status: no significant post operative nausea or vomiting Anesthetic Observations: Recommendation: continue current plan of care. Anesthesia Observations No Documentation SIGNATURE: Viri Linn APRN.[facility] PATIENT NAME: Efrain Acosta DATE: April 26, 2022 TIME: 2:13 PM CSN: [id number] Normal [facility] ANES PRE-OPon 04-26-2022 ANES PRE-OP HNO ID: [id number] Author: Viri Linn APRN.[facility] Service: Anesthesiology Author Type: Nurse Manufacturing Engineering Technologist Type: Anesthesia Preprocedure Evaluation Filed: 04/26/2022 1:45 PM Note Text: ANESTHESIOLOGY DAY OF SURGERY NOTE : 2005 Procedure Information Date/Time: 04/26/22 1330 Scheduled providers: Ladarius Gutierrez MD Procedures: COLONOSCOPY DIAGNOSTIC EGD DIAGNOSTIC Location: Ambulatory Surgery Estimated body mass index is 22.78 kg/m? as calculated from the following: Height as of this encounter: 147.3 cm (4' 10). Weight as of this encounter: 49.4 kg (109 lb). Most recent hematocrit and potassium results: No results found for this basename: HCT,HEMATOCRIT,K,POTA SSIUM Relevant Problems NEURO-PSYCH (+) Chronic daily headache I - PHYSICAL EVALUATION AIRWAY Patient intubated: No. Tracheostomy tube not present Mallampati: II. TM distance: >3 FB. Neck ROM: full ROM without neurological symptoms. Mouth opening: adequate. Short neck: no. Thick neck: no DENTAL Dental findings: teeth intact. Additional exam findings: no II - ANESTHESIA PLAN ASA Score: 1 Anesthetic Plan: MAC The patient is not a current smoker. NPO Status: adequate Monitoring plan: standard ASA. Postoperative analgesic plan: parenteral or oral opioids and multimodal analgesia. Informed Consent Anesthetic risks, benefits, alternatives, personnel and consent discussed: yes. Patient / Responsible Green Party agrees to proceed: yes Patient / Surrogate agrees to blood products: blood products not planned Significant changes in the patient condition since the History and Physical, not otherwise documented in primary service progress note: no. Potential Anesthesia issues that may suggest increased risk of complications or contraindication to planned procedure: none. Vitals Value Taken Time BP 108/83 04/26/22 1321 Pulse 86 04/26/22 1321 Resp 16 04/26/22 1321 Temp 36.6 ?C (97.9 ?F) 04/26/22 1321 SpO2 98 % 04/26/22 1321 Outpatient Medications as of 04/26/2022 Medication Sig - LAXATIVE, BISACODYL, 5 mg EC tablet TAKE 2 TABLETS (10 MG) BY MOUTH 2 TIMES DAILY FOR 1 DAY FOLLOW THE CLEAN OUT INSTRUCTIONS (Patient not taking: TAKE 2 TABLETS (10 MG) BY MOUTH 2 TIMES DAILY FOR 1 DAY FOLLOW THE CLEAN OUT INSTRUCTIONS) - ondansetron orally disintegrating (ZOFRAN ODT) 4 mg disintegrating tablet Take by mouth. TAKE 1 TABLET BY MOUTH EVERY 8 HOURS NEEDED FOR NAUSEA (Patient not taking: Reported on 04/13/2022 ) - polyethylene glycol 3350 (MIRALAX, GLYCOLAX) 17 gram/dose powder TAKE 136 G BY MOUTH ONCE FOR 1 DOSE MIX IN 8 OUNCES OF FLUID. (Patient not taking: TAKE 136 G BY MOUTH ONCE FOR 1 DOSE MIX IN 8 OUNCES OF FLUID.) - polyethylene glycol 3350 (MIRALAX, GLYCOLAX) 17 gram/dose powder Use as directed for Miralax / Gatorade Bowel Prep Kit - Gatorade Sports Drink Use as directed for Miralax / Gatorade Bowel Prep Kit - Bisacodyl (DULCOLAX) 5 mg tab Use as directed for Miralax / Gatorade Bowel Prep Kit - linaCLOtide (LINZESS) 290 mcg capsule Take 1 capsule by mouth once daily. - medroxyPROGESTERone (DEPO-PROVERA) 150 mg/mL injection Inject 150 mg intramuscularly every 12 weeks. - NAPROXEN SODIUM (ALEVE ORAL) Take by mouth as needed. No current facility-administered medications on file as of 04/26/2022. I have interviewed and examined the patient. I have reviewed the medical record and/or the pre-anesthesia evaluation, pertinent labs, and test results. This contains updated information obtained within 48 hours of Surgery/Procedure. SIGNATURE: Viri Linn APRN.[facility]NA PATIENT NAME: Efrain Acosta DATE: April 26, 2022 TIME: 1:45 PM CSN: [id number] Normal [facility] COLONOSCOPY DIAGNOSTICon [facility] EGD DIAGNOSTICon 04-26-2022 [facility] HISTORY PHYSICALon HISTORY PHYSICAL HNO ID: [id number] Author: Ladarius Gutierrez MD Service: Gastroenterology Author Type: Physician Type: HANDP Filed: 04/26/2022 2:06 PM Note Text: HISTORY AND PHYSICAL Efrain Acosta, 16 year old female Current history and physical on file: Yes Is a new History and Physical required for today's visit? No Indication for procedure: Abdominal pain, Constipation and Nausea PROCEDURE(S) SCHEDULED FOR: Colonoscopy with or without biopsies and with or without removal of polyps or lesions, dilation (any means), treatment of bleeding (any means), based on clinical findings. and EGD (Esophagogastroduoden oscopy) with or without biopsies, removal of polyps or lesions, dilation ( any means), treatment of bleeding ( any means), Barrx treatment of Severiano's Esophagus, image tube placement or cryo therapy treatment based on clinical findings. BASELINE BEHAVIOR: Calm BASELINE ORIENTATION: A AND O x3 All medications and allergies reviewed: Yes Skin Assessment: Warm dry mucus membranes pink Airway/Respiratory Assessment: Airway: visualization of the uvula- Yes Mouth: opening greater than 2 fingerbreadths- Yes Neck: full range of motion- Yes Breath sounds clear/equal- Yes Cardiac Assessment: Regular rate and rhythm without murmur Abdominal Assessment: Abdomen soft, non-tender, no masses or organomegaly. Sedation Plan: Moderate Additional Comments: None Ladarius Gutierrez MD Normal [facility] SURGICAL PATHOLOGYon 022 CASE REPORT Normal [facility] Comment on above: Order Comment: Speci men Type: TISSUE SPECIMEN Ordering Facility: [facility] Address: [address] [place] [address] Result Comment: Surg [facility] Pathology Report Case: [id number] Authorizing Provider: Ladarius Gutierrez MD Collected: 04/26/2022 01:51 PM Ordering Location: Ambulatory Surgery Received: 04/26/2022 07:35 PM Pathologist: Wayne Mcgarry MD Specimens: A) - DUODENUM BIOPSY B) - STOMACH BIOPSY Performed By: #### S #### [facility] CLIA [id number] [address] [place] [address] FINAL DIAGNOSIS Normal [facility] Comment on above: Order Comment: Speci lady Type: TISSUE SPECIMEN Ordering Facility: [facility] Address: [address] [place] [address] Result Comment: A. D uodenum, biopsy: -Duodenal mucosa with no diagnostic alteration -No evidence of celiac disease B. Stomach, biopsy: -Antral mucosa with marked reactive gastropathy and patchy erosion -No evidence of H. pylori Performed By: #### S #### [facility] CLIA [id number] [address] [place] [address] OF [facility] FINAL PERFORMING LAB Normal [facility] Comment on above: Order Comment: Speci men Type: TISSUE SPECIMEN Ordering Facility: [facility] Address: [address] [place] [address] Result Comment: Diag nostic interpretation performed at [facility], [address] [place] [address] CLIA# [id number] Analyst Geochemical Prospecting: Isaac Sarmiento M.D. Performed By: #### S #### [facility] CLIA [id number] [address] [place] [address] OF JOHN GROSS DESCRIPTION Normal [facility] Comment on above: Order Comment: Marciai men Type: TISSUE SPECIMEN Ordering Facility: [facility] Address: [address] [place] [address] Result Comment: A. D UODENUM BIOPSY. Received in formalin are multiple pieces of sanders, soft tissue aggregating to 1.3 x 0.2 x 0.2 cm. Totally submitted in one cassette. B. STOMACH BIOPSY. Received in formalin are multiple pieces of sanders, soft tissue aggregating to 1.4 x 0.2 x 0.2 cm. Totally submitted in one cassette. Gross examination performed at [facility], [address] [place] [address] J 04/27/2022 12:15 AM Performed By: #### S #### [facility] CLIA [id number] [address] [place] [address] CELIAC SCREEN WITH REFLEXon 04-24-2022 GLIAD DEAMIDATED IGA QUAL Negative Normal Negative, Test not Indicated [facility] Comment on above: Order Comment: Speci men Type: BLOOD SPECIMEN Ordering Facility: [facility] Address: [address] [place] [address] Result Comment: This is used as an aid in diagnosis of celiac disease. Clinical correlation is required. The following results were obtained with an Zelnas QUANTA Lite Gliadin IgA CECY Gliadin. Gliadin IgA values obtained with different manufacturers' assay methods may not be used interchangeably. The magnitude of the reported IgA levels cannot be correlated to an endpoint titer. Performed By: #### I STEPHAN CELSCR #### [facility] CLIA [id number] [address] [place] [address] OF JOHN Gliadin peptide IgA Qn (S) 3 Units Normal <20 [facility] Comment on above: Order Comment: Speci men Type: BLOOD SPECIMEN Ordering Facility: [facility] Address: [address] [place] [address] Performed By: #### I STEPHAN CELSCR #### [facility] CLIA [id number] [address] [place] [address] [place] INTERPRETATION No serological evidence of celiac disease, however, if celiac disease is clinically suspected and patient is not on gluten-free diet, histological diagnosis may be considered. HLA testing may help with risk assessment. Normal [facility] Comment on above: Order Comment: Speci men Type: BLOOD SPECIMEN Ordering Facility: [facility] Address: [address] [place] [address] Performed By: #### I STEPHAN, CELSCR #### [facility] CLIA [id number] [address] [place] [address] [place] TRANSGLUTAMINASE IGA QUAL Negative Normal Negative, Test not Indicated [facility] Comment on above: Order Comment: Arnav narayanan Type: BLOOD SPECIMEN Ordering Facility: [facility] Address: [address] [place] [address] Result Comment: The following results were obtained with the Zelnas QAUNTA Lite h-tTG IgA CECY. h-tTG IgA values obtained with different manufacturers' assay methods may not be used interchangeable. The magnitude of the reported IgA levels cannot be correlated to an endpoint titer. This is used as an aid in diagnosis of celiac disease. Clinical correlation is required. Performed By: #### I STEPHAN, CELSCR #### [facility] CLIA [id number] [address] [place] [address] [place] tTG IgA Qn (S) 3 Units Normal <20 [facility] Comment on above: Order Comment: Speci men Type: BLOOD SPECIMEN Ordering Facility: [facility] Address: [address] [place], [place] [id number] Performed By: #### I STEPHAN CELSCR #### [facility] CLIA [id number] [address] [place] [address] [place] IGA BLDon 04-24-2022 IgA [Mass/Vol] 117 mg/dL Normal 61-348 [facility] Comment on above: Order Comment: Arnav narayanan Type: BLOOD SPECIMEN Ordering Facility: [facility] Address: [address] [place] [address] Performed By: #### I STEPHAN CELSCR #### [facility] CLIA [id number] [address] [place] [address] [place] CNCOon 04-13-2022 CNCO Letter Text Normal [facility] CNOVon 04-13-2022 CNOV Office Visit (GSTNOR ) EFRAIN ACOSTA ([id number]) 1 F Date Time Provider Department 04/13/22 1:00 PM LILIYA COLEMAN During your visit today, we recorded the following information about you: Pulse Blood pressure Weight Height 94/minute 108/70 51.2 kg 1.461 m Liliya Coleman PA-C 04/13/2022 2:06 PM Signed CHIEF COMPLAINT: Patient presents with: Constipation: Abdominal Pain- No appetite CT at [facility]- View CE Summarization 02/25 ER at [place] and Xray 02/26 at [facility] This consult was requested by Self for an opinion regarding constipation, abdominal pain. My final recommendations will be communicated to the requesting health care provider by way of the shared medical record for internal providers or letter via the [facility] Service for external providers. HPI: Efrain Acosta is a 16 year old female who presents for Constipation (Abdominal Pain- No appetite CT at [facility]- View CE Summarization 02/25 ER at [place] and Xray 02/26 at [facility] ). PMHx of ADD, anxiety, chronic headache Mother is present today. Patient tells me that she has been dealing with bowel issues. Did have a bowel obstruction when she was [age] years old. Tells me she will get randomly very constipated. Unsure of triggers, comes out of the blue. Has tried eating dairy or cutting back fiber to see if this triggers anything. Has been working through new anxiety medications recently unsure if this was a trigger. Eats very healthy. Did have a decreased appetite but this has returned. Drinks a lot of water. Was taking Miralax BID with no relief for weeks. Did a colonoscopy bowel prep with no relief. Had severe abdominal pain after drinking half the prep. At [facility] was given an enema with better relief. Starting have constipation again and saw her PCP. Discussed diet changes but this worsened her symptoms. Tells me today that she is feeling minimal improvement. She is going a week without a BM. Pain is in the LLQ always. She gets bad heartburn and gas every time she eats. Pain can worsen after she moves her bowels. Has woken up due to her abdominal pain. Notes a lot of fatigue. Has vomited twice. Gets very nauseous. No bloody or black stools. Stools have been dark green. No smoking or alcohol. Uncle has a lot of stomach issues. Mom has gastroparesis. Abdominal x-ray 02/26/2022: IMPRESSION: 1. ?Nonobstructive bowel gas pattern. 2. ?Large fecal load. Record Review: [facility] / Outside records reviewed. PAST MEDICAL HISTORY Diagnosis Date - ADD (attention deficit disorder) - Anxiety - Constipation PAST SURGICAL HISTORY Procedure Laterality Date - NONE Allergies: ALLERGIES Allergen Reactions - Benedryl [Diphenhyd* Unknown Paroxsymal effect - Caffeine Vomiting, Other: See Comments Shaking, Nausea - Phenergan [Prometha* Unknown Paroxsymal effect Medications: NAPROXEN SODIUM (ALEVE ORAL) Take by mouth as needed. LAXATIVE, BISACODYL, 5 mg EC tablet TAKE 2 TABLETS (10 MG) BY MOUTH 2 TIMES DAILY FOR 1 DAY FOLLOW THE CLEAN OUT INSTRUCTIONS ondansetron orally disintegrating (ZOFRAN ODT) 4 mg disintegrating tablet Take by mouth. TAKE 1 TABLET BY MOUTH EVERY 8 HOURS NEEDED FOR NAUSEA polyethylene glycol 3350 (MIRALAX, GLYCOLAX) 17 gram/dose powder TAKE 136 G BY MOUTH ONCE FOR 1 DOSE MIX IN 8 OUNCES OF FLUID. medroxyPROGESTERone (DEPO-PROVERA) 150 mg/mL injection Inject 150 mg intramuscularly every 12 weeks. FAMILY HISTORY Problem Relation Age of Onset - Psychiatry Mother anxiety, depression, PTSD - other (gastroparesis) Mother - other (migraines) Mother - Psychiatry Father anxiety and depression - Obesity Father - other (healthy) Sister - COPD Maternal Grandfather - Alcohol/Drug Maternal Grandfather - other (congestive heart failure) Maternal Grandfather - COPD Paternal Grandmother - Hypertension Paternal Grandmother - other (fibromyalgia) Paternal Grandmother - Colon Cancer No Family History - Ulcerative Colitis No Family History - Crohn's Disease No Family History Employer And Job Title: None on file Years Of Education Completed: Not specified Marital Status: Single Social History Tobacco Use - Smoking status: Never Smoker - Smokeless tobacco: Never Used Vaping Use - Vaping Use: Never used Substance Use Topics - Alcohol use: Never - Drug use: Never Review of Systems: Review of Systems Constitutional: Positive for activity change and fatigue. Gastrointestinal: Positive for abdominal pain, constipation and nausea. Gas, Heartburn All other systems reviewed and are negative. Are you taking any blood thinners? No Physical Examination: BP 108/70 Pulse 94 Ht 4' 9.5 (1.46m) Wt 112 lb 12.8 oz (51.2kg) LMP 12/26/2019 BMI 23.97 kg/(m2). Physical Exam Constitutional: Appearance: Normal appearance. She is normal (more content not included)... Normal [facility] Progress Noteon 03-02-2022 Director Rehabilitation Program Authentication Interface Message Text Patient ID: Efrain Acosta is a 16 y.o. female. Her chief complaint(s) include: Constipation Assessment 1. Constipation, unspecified constipation type Plan Efrain was seen today for constipation. Diagnoses and all orders for this visit: Constipation, unspecified constipation type diet revisions discussed at length with pt and parent Call for any questions/concerns/pr oblems/changes Repeat clean out instruction per last visit Return with Gi. Subjective She is accompanied by her mother. Independent history obtained from mother. Constipation The duration has been 11 months. The patient's symptoms include: infrequent stools, painful bowel movements, hard stools, small stools and fecal impaction. The symptoms are described as moderate. Efrain's last stool was 2-3 days ago. Previous interventions have included Milk of Magnesia, laxatives, enema, lactulose and Miralax. The associated symptoms include: no distension and no vomiting. Previous evaluations include consultation with a track vehicle repairer and imaging. Know hx of chronic constiaption No Bm for past 2 days No abdominal discomfort at this time Review of Systems Gastrointestinal: Positive for constipation. Objective Vital Signs 03/02/22 1144 Temp: 36.7 C (98 F) TempSrc: Temporal Weight: 50.2 kg There is no height or weight on file to calculate BMI. Physical Exam Nursing note reviewed. Constitutional: She appears well. She is active. No distress. HENT: Head: Atraumatic. Ears: Right Ear: External ear normal. Left Ear: External ear normal. Mouth/Throat: Mucous membranes are moist. Eyes: Conjunctivae are normal. Pulmonary/Chest: Breath sounds normal. There is normal air entry. Abdominal: Soft. She exhibits no distension. There is no abdominal tenderness. Musculoskeletal: No pain, swelling, or limited range of motion at any joint. Neurological: She is alert. Vitals reviewed: Temperature 36.7 C (98 F), temperature source Temporal, weight 50.2 kg. Normal [facility] ED Provider Progress Noteon 02-26-2022 Director Rehabilitation Program Authentication Interface Message Text Miguelbahman Villalpando Randee : 2005 Chief Complaint Patient presents with Abdominal Pain Constipation Allergies Allergen Reactions Benadryl [Diphenhydramine Hcl] Anxiety Caffeine Nausea And Vomiting shaking Promethazine Anxiety Phenergan DOS: 02/25/2022 HPI This is an 16-year-old female patient presented to emergency department for evaluation of constipation. Patient reporting she has history of chronic constipation. Patient not on any medications regularly other than albuterol as needed. Over the last 2 weeks she has been having very movements. Patient was seen by her primary care physician 3 days prior diagnosed with a UTI darted on Keflex and given bowel cleanout regimen. Fevers, chills. Today she started bowel regimen had about 70 g of MiraLAX, 2 stools softeners. Since then she has been having severe cramping. She attempted to go to the restroom multiple times to have bowel movements but was unsuccessful. Patient denies any urinary complaints. She did eat lunch today. Review of Systems Constitutional: Negative for activity change and fever. Eyes: Negative for pain, redness and itching. Respiratory: Negative for cough and shortness of breath. Cardiovascular: Negative for chest pain and leg swelling. Gastrointestinal: Positive for abdominal pain, nausea and vomiting. Genitourinary: Negative for dysuria, flank pain, frequency, hematuria, urgency, vaginal bleeding and vaginal discharge. Musculoskeletal: Negative for back pain and neck pain. Neurological: Negative for seizures and headaches. Psychiatric/Behaviora l: Negative for confusion. All other systems reviewed and are negative. Past Medical History: Diagnosis Date Anxiety Depression Headache History reviewed. No pertinent surgical history. Pediatric History Patient Parents Liliya Johnson (Mother) Jeff Acosta (Father) Other Topics Concern Not on file Social History Narrative Not on file ED Triage Vitals Date and Time Temp Temp src Pulse Resp BP SpO2 Weight User 02/25/22 2329 36.5 C (97.7 F) -- 89 18 111/68 99 % 50.6 kg KLB Physical Exam Vitals and nursing note reviewed. Constitutional: General: She is not in acute distress. Appearance: She is not toxic-appearing. HENT: Head: Normocephalic and atraumatic. Nose: Nose normal. No congestion. Mouth/Throat: Mouth: Mucous membranes are moist. Pharynx: Oropharynx is clear. Eyes: Extraocular Movements: Extraocular movements intact. Pupils: Pupils are equal, round, and reactive to light. Cardiovascular: Rate and Rhythm: Normal rate and regular rhythm. Heart sounds: Normal heart sounds. Pulmonary: Effort: Pulmonary effort is normal. No respiratory distress. Breath sounds: Normal breath sounds. No wheezing. Abdominal: Palpations: Abdomen is soft. There is no hepatomegaly, splenomegaly or mass. Tenderness: There is no right CVA tenderness or left CVA tenderness. Hernia: No hernia is present. Comments: Generalized abdominal tenderness Musculoskeletal: General: Normal range of motion. Right lower leg: No edema. Left lower leg: No edema. Skin: General: Skin is warm and dry. Capillary Refill: Capillary refill takes less than 2 seconds. Neurological: General: No focal deficit present. Mental Status: She is alert and oriented to person, place, and time. Procedures MDM This is a 16-year-old female presented to emergency department for constipation. Palpation. X-ray obtained large stool load. Enema given here. Patient had subsequent large bowel movement with complete resolution of symptoms. Urinalysis not show urinary tract action. I told patient that she may discontinue. She is counseled to use MiraLAX and prune juice daily follow-up with primary care physician. ED Course: Diagnosis' considered:constipati on, SBO, obstipation, UTI Labs/Radiology: X-Ray Abdomen 2 views Final Result IMPRESSION: 1. Nonobstructive bowel gas pattern. 2. Large fecal load. Job Foreman: PSCB Transcribe Date/Time: Feb 26 2022 12:46A Dictated by : FAUSTINO GRIFFIN MD This examination was interpreted and the report reviewed and electronically signed by: FAUSTINO GRIFFIN MD on Feb 26 2022 12:47AM EST Labs Reviewed URINALYSIS, COMPLETE Narrative: Release to patient->Automatic URINALYSIS, AUTOMATED-TNRON Narrative: Release to patient->Automatic POCT URINE HCG Consults: No orders of the defined types were placed in this encounter. Encounter Documentation/Handoff : Medical Decision Making as of 02/26/22212 Mon Feb 26, 2022 0104 Signed out to me by DR Black Plan to enema d/t constipation then dc home UA pending Sandra Aguilera DO [LK] 210 Patient had large BM here. Pain immediately resolved. Stable for discharge [FG] Medical Decision Making User Index [FG] Chapo Meyers DO [LK] Sandra Aguilera DO Final Clinical Impression/Diagnosis as of 02/26/22212 Constipat (more content not included)... Normal [facility] Urinalysis,Automatedon 02-26 Mucous Small Normal [facility] Comment on above: Order Comment: Relea se to patient->Automatic 69764&Blood Performed By: #### C BC #### [address] [address] RBC (U) [#/Vol] 0.0 /uL Normal 0.0-20.0 [facility] Comment on above: Order Comment: Relea se to patient->Automatic 70299&Blood Performed By: #### C BC #### [address] [address] Squamous Epithelial Cells 4 /uL Normal 0-20 [facility] Comment on above: Order Comment: Relea se to patient->Automatic 45047&Blood Performed By: #### C BC #### [address] [address] Transitional Epithelial Cells 1 /uL Normal 0-20 [facility] Comment on above: Order Comment: Relea se to patient->Automatic 78895&Blood Performed By: #### C BC #### [address] [address] WBC (U) [#/Vol] 8.0 /uL Normal 0.0-20.0 [facility] Comment on above: Order Comment: Relea se to patient->Automatic 53843&Blood Performed By: #### C BC #### [address] [address] Urinalysis,Completeon 2021 Volume 12 ml Normal 12 [facility] Comment on above: Order Comment: Relea se to patient->Automatic 20795&Urine Performed By: #### U ACOM #### [address] [address] Bilirubin,urine Negative Normal Negative [facility] Comment on above: Order Comment: Relea se to patient->Automatic 69002&Urine Performed By: #### U ACOM #### [address] [address] Character Cloudy Normal [facility] Comment on above: Order Comment: Relea se to patient->Automatic 81769&Urine Performed By: #### U ACOM #### [address] [address] Color (U) Yellow Normal [facility] Comment on above: Order Comment: Relea se to patient->Automatic 01368&Urine Performed By: #### U ACOM #### [address] [address] Glucose Ql (U) Negative Normal Negative [facility] Comment on above: Order Comment: Relea se to patient->Automatic 80139&Urine Performed By: #### U ACOM #### [address] [address] Ketones Ql (U) Negative Normal Negative [facility] Comment on above: Order Comment: Relea se to patient->Automatic 68254&Urine Performed By: #### U ACOM #### [address] [address] Leukocyte esterase Test strip Ql (U) Negative Normal Negative [facility] Comment on above: Order Comment: Relea se to patient->Automatic 57545&Urine Performed By: #### U ACOM #### [address] [address] Nitrite Ql (U) Negative Normal Negative [facility] Comment on above: Order Comment: Relea se to patient->Automatic 56713&Urine Performed By: #### U ACOM #### [address] [address] pH, Urine 7.0 Normal 5.0-8.0 [facility] Comment on above: Order Comment: Relea se to patient->Automatic 64547&Urine Performed By: #### U ACOM #### [address] [address] Protein,Ur Negative Normal Neg.-Trace [facility] Comment on above: Order Comment: Relea se to patient->Automatic 35007&Urine Performed By: #### U ACOM #### [address] [address] Specific gravity (U) [Rel density] 1.019 Normal 1.005-1.030 [facility] Comment on above: Order Comment: Relea se to patient->Automatic 55796&Urine Performed By: #### U ACOM #### [address] [address] Urobilinogen (U) [Mass/Vol] 0.2 mg/dL Normal Negative [facility] Comment on above: Order Comment: Relea se to patient->Automatic 45705&Urine Performed By: #### U ACOM #### [place] [address] Progress Noteon 02-22-2022 Director Rehabilitation Program Authentication Interface Message Text Patient ID: Efrain Acosta is a 16 y.o. female. Her chief complaint(s) include: Abdominal Pain (X 4 DAY) Assessment 1. Urinary tract infection without hematuria, site unspecified 2. Symptoms involving urinary system 3. Constipation, unspecified constipation type Plan Efrain was seen today for abdominal pain. Diagnoses and all orders for this visit: Urinary tract infection without hematuria, site unspecified - cephALEXin (KEFLEX) 500 MG capsule; Take 2 Capsules (1,000 mg) by mouth every 12 hours for 10 days - Urine culture Symptoms involving urinary system - POCT urinalysis dipstick Constipation, unspecified constipation type - Discontinue: polyethylene glycol (MIRALAX;GLYCOLAX) 17 GM/SCOOP powder; Take 136 g by mouth once for 1 dose Mix in 8 ounces of fluid. - Discontinue: bisacodyl (DULCOLAX) 5 MG EC tablet; Take 2 Tablets (10 mg) by mouth 2 times daily for 1 day - Discontinue: polyethylene glycol (MIRALAX;GLYCOLAX) 17 GM/SCOOP powder; Take 136 g by mouth once for 1 dose Mix in 64 ounces of fluid. - polyethylene glycol (MIRALAX;GLYCOLAX) 17 GM/SCOOP powder; Take 136 g by mouth once for 1 dose Mix in 64 ounces of fluid. Drink 6 ounces at a time following the clean out instructions. - bisacodyl (DULCOLAX) 5 MG EC tablet; Take 2 Tablets (10 mg) by mouth 2 times daily for 1 day Follow the clean out instructions Return if symptoms worsen or fail to improve. Subjective She is accompanied by her mother. Abdominal Pain The onset has been variable. The pattern is persistent. The course is worsening. The symptoms are described as moderate. The location of the pain is in the left upper quadrant and left lower quadrant. The pain radiates to the back. The symptoms are aggravated by meals. Symptoms are relieved by nothing. Associated symptoms include decreased appetite, feeling of fullness and dysuria. Associated symptoms do not include fever, diarrhea and vomiting. The patient's diet consists of adequate fluid intake. The previous evaluations were test. Primary Care Review of Systems Objective Vital Signs 02/22/22 1551 Temp: 37.1 C (98.8 F) TempSrc: Temporal Weight: 50.6 kg There is no height or weight on file to calculate BMI. Physical Exam Nursing note reviewed. Constitutional: She appears well. She is active. No distress. HENT: Head: Atraumatic. Ears: Right Ear: Tympanic membrane normal. Left Ear: Tympanic membrane normal. Mouth/Throat: Mucous membranes are moist. Eyes: Conjunctivae are normal. Cardiovascular: Normal rate and regular rhythm. Heart murmur not heard. Pulmonary/Chest: Effort normal and breath sounds normal. There is normal air entry. No respiratory distress. Air movement is not decreased. Abdominal: Full and soft. She exhibits no distension and no mass. Bowel sounds are decreased. There is no hepatosplenomegaly. There is abdominal tenderness. There is no rebound and no guarding. Neurological: She is alert. Skin: Capillary refill takes less than 3 seconds. Skin is warm. Findings: No rash. Vitals reviewed: Temperature 37.1 C (98.8 F), temperature source Temporal, weight 50.6 kg. Last Result POCT urinalysis dipstick Collection Time: 02/22/22 4:01 PM Result Value Ref Range POCT, Leukocytes, Urine Trace (A) Negative POCT Nitrite, Urine Negative Negative POCT Protein, Urine Negative Negative - Trace mg/dl POCT Urine pH 7.5 5.0 - 8.0 pH POCT Blood, Urine Negative Negative POCT Urine Specific [place] 1.025 1.005 - 1.030 POCT Ketones, Urine Negative Negative mg/dl POCT Glucose, Urine Negative Negative mg/dl Normal [facility] Urine Cultureon 02-22-2022 Bacteria identified Cx Nom (U) Is this specimen being sent to an external lab?->No Release to patient->Automatic [id number]&Urine-Midstream ^^^Urine&Urine Urine Culture: 10,000 - 50,000 CFU/ml of Normal Skin/urogenital jayden Source: URNMD Collected: 02/22/22 16:37 Site: Urine Received : 02/22/22 20:27 Urine Culture FINAL 02/24/22 08:26 10,000 - 50,000 CFU/ml of Normal Skin/urogenital jayden present Normal [facility] Comment on above: Performed By: #### C #### [facility] of [address] [address] Progress Noteon 02-01-2022 Director Rehabilitation Program Authentication Interface Message Text History of Presenting Illness: Efrain Acosta is a 16 y.o. female who is being seen today for a consultative service at the request of Leidy De Paz DO for our opinion or medical advice regarding palpitations. She is brought in by her Mother. For the past 3 to 4 weeks Rosamaria has randomly been having episodes where it feels like her heart is racing and like her whole chest is vibrating. Associated symptoms include seeing black dots and an episode several weeks ago where it felt like her whole body could not move. During that particular episode EMS was called and she was taken to the emergency department, where she was given Ativan and discharged home. She has checked her pulse during these episodes and often is in the 120-140 bpm range, but has been as high as 160 beats per minute. These episodes occur randomly and sometimes will even awaken her from sleep. They occur 2-3 times per day and 2-3 times per night. The episodes last around 1 hour and resolve gradually with taking some deep breaths. She denies any associated syncope or cyanosis. She is not particularly active. She does have a history of dizziness with positional changes, which she states is different than her current episodes. She also reports that she has a lot of anxiety issues. Non-Cardiac ROS: A complete 10-point review of systems was performed and was otherwise unremarkable, except those symptoms previously reported in the HPI Past Medical/Surgical History: Patient Active Problem List Diagnosis Attention deficit disorder Separation anxiety disorder Generalized anxiety disorder Chronic migraine Abnormal sense of taste Transient alteration of awareness Irregular periods History reviewed. No pertinent surgical history. Medications: Current Outpatient Medications Medication Sig Dispense Refill ondansetron (ZOFRAN) 4 MG tablet Take 1 Tablet (4 mg) by mouth every 8 hours as needed for Nausea (Patient not taking: Reported on 02/01/2022) 10 Tablet 0 albuterol 108 (90 Base) MCG/ACT inhaler Inhale 2 Puffs into the lungs every 4 hours as needed for Shortness of Breath or Cough Use with spacer. (Patient not taking: Reported on 02/01/2022) 1 Inhaler 1 Current Facility-Administered Medications Medication Dose Route Frequency Provider Last Rate Last Admin medroxyPROGESTERone (DEPO-PROVERA) injection 150 mg 150 mg Intramuscular L.A.M. Leidy De Paz, DO 150 mg at 01/29/22 1428 Allergies: Allergies Allergen Reactions Benadryl [Diphenhydramine Hcl] Anxiety Caffeine Nausea And Vomiting shaking Promethazine Anxiety Phenergan Family History: The family history is otherwise negative for congenital heart disease, sudden unexplained , arrhythmia, heart transplantation, ICD or pacemaker requirement at a young age on the maternal or paternal side of the family. Social History: Lives at home with family: Mother, Father, and sisters Physical Exam: BP 112/78 (BP Site: Right Arm, Patient Position: Sitting, BP Cuff Size: Adult) Pulse 75 Resp 16 Ht (!) 148 cm Wt 50.3 kg BMI 22.96 kg/m General: her appears healthy, well developed, thin, non-toxic, and in no acute distress. HEENT: atraumatic and normocephalic, moist mucous membranes. Chest: Respirations are easy, non-labored with symmetric chest rise. Good aeration of lung terry. Cardiac: Regular rate and rhythmic. Normal S1 and S2. No systolic, diastolic, or continuous murmurs. No clicks, rub or gallop rhythm. Normal heart rate variability with position. Peripheral and central pulses are 2+. Capillary refill <2sec. Abdomen: Abdomen is flat, soft, nontender, and nondistended without hepatosplenomegaly or masses. Skin: [place], warm, well perfused. Musculoskeletal: Normal tone and bulk. Moves all extremities equally with full range of motion Neuro: Awake and alert. Answering questions appropriately and following commands. Studies: EKG (02/01/2022): Normal sinus rhythm. No pre-excitation, or ectopy. Normal QTc interval. No abnormalities in axes, intervals, or voltages (Normal ECG) Results for orders placed or performed during the hospital encounter of 01/22/22 Basic metabolic panel Result Value Ref Range Sodium 138 133 - 145 mmol/L Potassium 4.0 3.3 - 5.1 mmol/L Chloride 104 96 - 108 mmol/L Carbon Dioxide 20.5 (L) 22.0 - 29.0 mmol/L BUN 10 4 - 19 mg/dL Glucose 96 70 - 99 mg/dL Creatinine 0.66 0.50 - 1.00 mg/dL Calcium 9.8 7.6 - 11.0 mg/dL Complete Blood Count Result Value Ref Range WBC 7.6 4.5 - 13.0 10E9/L Nucleated RBC Percent 0.0 -1.0 - 0.0 % RBC 5.02 (H) 4.10 - 4.80 10E12/L Hemoglobin 15.0 12.0 - 15.0 g/dl Hematocrit 42.7 37.0 - 46.0 % MCV 85.1 78.0 - 96.0 fl MCH 29.9 25.0 - 35.0 pg MCHC 35.1 31.0 - 37.0 % RDW 11.8 0.0 - 14.4 % Platelets 337 150 - 450 10E9/L MPV 9.9 fl Differential Complete Automated NA % Neutrophils 64.6 (H) 34.0 - 64.0 % % Lymphocytes 25.2 25.0 - 45.0 % % Monoc (more content not included)... Normal [facility] Progress Noteon 01-29-2022 Director Rehabilitation Program Authentication Interface Message Text Patient ID: Efrain Acosta is a 16 y.o. female. Her chief complaint(s) include: Follow Up and Contraception Assessment 1. Tachycardia, unspecified 2. Palpitations 3. Nausea 4. Anxiety 5. Encounter for surveillance of injectable contraceptive 6. Abdominal pain, unspecified abdominal location 7. Symptoms involving urinary system 8. Encounter for test, result unknown Plan Efrain was seen today for follow up and contraception. Diagnoses and all orders for this visit: Tachycardia, unspecified - AMB Referral To Cardiology; Future - AMB Referral To Endocrinology; Future Palpitations - AMB Referral To Cardiology; Future - AMB Referral To Endocrinology; Future Nausea - ondansetron (ZOFRAN) 4 MG tablet; Take 1 Tablet (4 mg) by mouth every 8 hours as needed for Nausea - AMB Referral To Endocrinology; Future Anxiety Encounter for surveillance of injectable contraceptive - medroxyPROGESTERone (DEPO-PROVERA) injection 150 mg Abdominal pain, unspecified abdominal location Encounter for test, result unknown - POCT urine HCG Return if symptoms worsen or fail to improve. Discussed symptoms at length. Discussed making sure to eat consistently- not eating sometimes could contribute to her nausea and abdominal pain. Discussed keeping log of pain to look for triggers. Has GI appointment scheduled in May and is on a wait list for a sooner appointment if available. Referred to cardiology for further evaluation because of new episodes of tachycardia and palpitations. Normal heart sounds on exam today. [place] and mom are concerned for possible endocrine/hormonal etiologies of her symptoms because of pattern of symptoms. Given endo referral for further evaluation. Urine hcg negative. Depo provera given. Subjective HPI Comments: Assessment for counseling at [facility] this Saturday. Anxiety is very high right now. Struggled with taking a shower last night- heart racing. [facility] when she was feeling extremely anxious. Helped a lot. In [facility] ED waiting room last week, got chest pains, HR was 140s. Since then, randomly feels like her HR spikes high. Will be 140-150s when she checks it on the pulse ox. When her HR went up, saw black spots and felt like she couldn't move. Called EMS, was improved when they got there. Happening 2-3 times per day. Will get pressure in her chest when this happens, sometimes feels like burning feeling. Lasts about an hour. In the mornings, often wakes up with a stomach ache. Not vomiting recently- last was just prior to going to the ED last week. Not eating breakfast. Will have to take zofran before eating anything in the mornings. Towards the evening feels a little better. Feels like she has to wait 3-4 hours after getting up to eat anything. Has noticed pinworms lately- has Rx waiting at the pharmacy. She is accompanied by her mother. Independent history obtained from mother. Primary Care Review of Systems Objective Vital Signs 01/29/22 1313 Temp: 36.8 C (98.2 F) TempSrc: Temporal Weight: 50 kg There is no height or weight on file to calculate BMI. Physical Exam Constitutional: She appears well. She is active. Appears mildly anxious but much less so than last appointment HENT: Head: Atraumatic. Nose: No nasal discharge. Mouth/Throat: Mucous membranes are moist. No pharynx erythema. Eyes: Conjunctivae and EOM are normal. Pupils are equal, round, and reactive to light. Neck: Neck supple. Cardiovascular: Normal rate and regular rhythm. Heart murmur not heard. Pulmonary/Chest: Effort normal and breath sounds normal. There is normal air entry. No respiratory distress. She has no wheezes. She has no rhonchi. She has no rales. Abdominal: Soft. There is no abdominal tenderness. Musculoskeletal: Cervical back: Normal range of motion and neck supple. No rigidity. Lymphadenopathy: No right anterior and posterior cervical adenopathy present. No left anterior and posterior cervical adenopathy present. Neurological: She is alert. She exhibits normal muscle tone. Skin: Capillary refill takes less than 3 seconds. Skin is warm. Skin is not pale. Findings: No rash. Vitals reviewed: Temperature 36.8 C (98.2 F), temperature source Temporal, weight 50 kg. Last Result POCT urine HCG Collection Time: 01/29/22 2:23 PM Result Value Ref Range hCG Urine POCT Negative Negative Control Line *Present Clear Background *Present Lot Number [id number] Normal [facility] .Auto Diffon 01-26-2022 Basophil, Absolute 0.10 10 3/mcL Normal 0.00-0.19 [facility] ([place]) Comment on above: Performed By: #### P REGU, UA, UAMICAO #### [address] [address] Basophils/100 WBC (Bld) 0.9 % Normal 0.0-2.5 A [facility] ([place]) Comment on above: Performed By: #### P REGU, UA, UAMICAO #### [address] [address] Eosinophil, Absolute 0.70 10 3/mcL High 0.00-0.40 A [facility] ([place]) Comment on above: Performed By: #### P REGU, UA, UAMICAO #### [address] [address] Eosinophils/100 WBC (Bld) 9.6 % High 0.0-7.0 [facility] ([place]) Comment on above: Performed By: #### P REGU, UA, UAMICAO #### [address] [address] Lymphocyte, Absolute 3.30 10 3/mcL Normal 0.77-3.85 A [facility] ([place]) Comment on above: Performed By: #### P REGU, UA, UAMICAO #### [address] [address] Lymphocytes/100 WBC (Bld) 43.7 % Normal 10.0-50.0 [facility] ([place]) Comment on above: Performed By: #### P REGU, UA, UAMICAO #### [address] [address] Monocyte, Absolute 0.60 10 3/mcL Normal 0.15-1.00 [facility] ([place]) Comment on above: Performed By: #### P REGU, UA, UAMICAO #### [address] [address] Monocytes/100 WBC (Bld) 8.3 % Normal 1.7-13.0 A [facility] ([place]) Comment on above: Performed By: #### P REGU, UA, UAMICAO #### [address] [address] Neutrophils/100 WBC (Bld) 37.5 % Normal 37.0-80.0 [facility] ([place]) Comment on above: Performed By: #### P REGU, UA, UAMICAO #### [address] [address] .GFRon 01-26-2022 GFR 110 ml/min/1.73sqm Normal [facility] ([place]) Comment on above: Result Comment: GFR Population mean for , Non- Americans Ages 20-29 = 116 mL/min/1.73 sq.m. Ages 30-39 = 107 mL/min/1.73 sq.m. Ages 40-49 = 99 mL/min/1.73 sq.m. Ages 50-59 = 93 mL/min/1.73 sq.m. Ages 60-69 = 85 mL/min/1.73 sq.m. Ages 70+ = 75 mL/min/1.73 sq.m. Chronic Kidney Disease: Less than 60 mL/min/1.73 square meters End Stage Renal Disease: Less than 15 mL/min/1.73 square meters Performed By: #### P REGU, UA, UAMICAO #### [address] [address] GFR Non- 91 ml/min/1.73sqm Normal [facility] ([place]) Comment on above: Result Comment: GFR Population mean for , Non- Americans Ages 20-29 = 116 mL/min/1.73 sq.m. Ages 30-39 = 107 mL/min/1.73 sq.m. Ages 40-49 = 99 mL/min/1.73 sq.m. Ages 50-59 = 93 mL/min/1.73 sq.m. Ages 60-69 = 85 mL/min/1.73 sq.m. Ages 70+ = 75 mL/min/1.73 sq.m. Chronic Kidney Disease: Less than 60 mL/min/1.73 square meters End Stage Renal Disease: Less than 15 mL/min/1.73 square meters Performed By: #### P REGU, UA, UAMICAO #### [address] [address] .NEUABSon 01-26-2022 Neutrophil, Absolute 2.90 10 3/mcL Normal 2.85-6.16 A [facility] ([place]) Comment on above: Performed By: #### P REGU, UA, UAMICAO #### [address] [address] BMPon 01-26-2022 BUN/Creatinine Ratio 11 ratio Normal 7-27 [facility] ([place]) Comment on above: Performed By: #### P REGU, UA, UAMICAO #### [address] [address] Calcium [Mass/Vol] 9.8 mg/dL Normal 8.4-10.2 [facility] ([place]) Comment on above: Performed By: #### P REGU, UA, UAMICAO #### [address] [address] Chloride [Moles/Vol] 101 mmol/L Normal 98-107 [facility] ([place]) Comment on above: Performed By: #### P REGU, UA, UAMICAO #### [address] [address] CO2 [Moles/Vol] 20 mmol/L Low 22-29 [facility] ([place]) Comment on above: Performed By: #### P REGU, UA, UAMICAO #### [address] [address] Creatinine [Mass/Vol] 0.82 mg/dL Normal 0.55-1.02 [facility] ([place]) Comment on above: Performed By: #### P REGU, UA, UAMICAO #### [address] [address] Electrolyte Balance 15.0 mEq/L Normal 4.0-15.0 [facility] ([place]) Comment on above: Performed By: #### P REGU, UA, UAMICAO #### [address] [address] Glucose [Mass/Vol] 94 mg/dL Normal 70-105 [facility] ([place]) Comment on above: Performed By: #### P REGU, UA, UAMICAO #### [address] [address] Potassium [Moles/Vol] 3.9 mmol/L Normal 3.5-5.1 [facility] ([place]) Comment on above: Performed By: #### P REGU, UA, UAMICAO #### [address] [address] Sodium [Moles/Vol] 136 mmol/L Normal 136-145 [facility] ([place]) Comment on above: Performed By: #### P REGU, UA, UAMICAO #### [address] [address] Urea nitrogen [Mass/Vol] 9 mg/dL Normal 7-18 [facility] ([place]) Comment on above: Performed By: #### P REGU, UA, UAMICAO #### [address] [address] CBCon 01-26-2022 Erythrocyte distribution width (RBC) [Ratio] 12.7 % Normal 11.5-14.5 [facility] ([place]) Comment on above: Performed By: #### P REGU, UA, UAMICAO #### [address] [address] Hematocrit (Bld) [Volume fraction] 43.3 % Normal 37.0-47.0 [facility] ([place]) Comment on above: Performed By: #### P REGU, UA, UAMICAO #### [address] [address] Hgb 14.9 G/dL Normal 12.0-16.0 [facility] ([place]) Comment on above: Performed By: #### P REGU, UA, UAMICAO #### [address] [address] MCH (RBC) [Entitic mass] 30.0 pg Normal 27.0-31.2 [facility] ([place]) Comment on above: Performed By: #### P REGU, UA, UAMICAO #### [address] [address] MCHC 34.4 G/dL Normal 33.0-37.0 [facility] ([place]) Comment on above: Performed By: #### P REGU, UA, UAMICAO #### [address] [address] MCV (RBC) [Entitic vol] 87.0 fL Normal 80.0-94.0 A [facility] ([place]) Comment on above: Performed By: #### P REGU, UA, UAMICAO #### [address] [address] Platelet 340 10 3/mcL Normal 130-400 [facility] ([place]) Comment on above: Performed By: #### P REGU, UA, UAMICAO #### [address] [address] Platelet mean volume (Bld) [Entitic vol] 8.6 fL Normal 7.4-10.4 [facility] ([place]) Comment on above: Performed By: #### P DIO SAHNI [place] #### [address] [address] RBC 4.97 10 6/mcL Normal 4.20-5.40 [facility] ([place]) Comment on above: Performed By: #### DIO DENNIS [place] #### [address] [address] WBC 7.60 10 3/mcL Normal 4.60-10.80 [facility] ([place]) Comment on above: Performed By: #### DIO DENNIS [place]AM[place]O #### [address] [address] DIMERon 01-26-2022 D-Dimer <200 Normal 0-230 [facility] ([place]) Comment on above: Result Comment: The result of the D-Dimer test should be evaluated in the context of all the clinical and laboratory data available. In those instances where the laboratory result does not agree with the clinical evaluation, additional tests should be performed accordingly. If the D-Dimer result is used to exclude DVT or PE, the recommended cutoff value is less than 230 ng/mL. The D-Dimer result should not be used alone to rule in DVT/PE, but should be used in conjunction with a clinical pretest probability (PTP)assessment model to exclude venous thromboembolism (VTE) in outpatients suspected of deep venous thrombosis (DVT) and pulmonary embolism (PE). Performed By: #### Yane REGDIO Diaz [place] #### [address] [address] TROPHSon 01-26-2022 Troponin I High Sensitivity 18.5 ng/L Normal 0.0-51.4 [facility] ([place]) Comment on above: Performed By: #### DIO DENNIS UAMICAO #### [address] [address] XR CHEST 1 VIEWon 01-26-2022 XR CHEST 1 VIEW ORIGINAL EXAMINATION: ONE XRAY VIEW OF THE CHEST01/25/2022 11:44 pm COMPARISON: CT abdomen pelvis 10/19/2021 HISTORY: ORDERING SYSTEM PROVIDED HISTORY: Reason for Exam: chest pain FINDINGS: Lordotic projection was obtained. The cardiomediastinal silhouette is within normal limits. Lungs are clear with no infiltrate, mass, or atelectasis. Costophrenic angles are sharply defined. No pneumothorax. No acute osseous abnormalities identified. IMPRESSION: No acute cardiopulmonary abnormality identified. I have personally reviewed the images of this examination and agree with the resident's findings and interpretation. Interpreted by: Alessandro Bledsoe MD Preliminary Report By: Julius Rai Electronically signed By Alessandro Bledsoe MD Dictated Date: 01/25/2022 11:49:18 PM Prelim Date: 01/25/2022 11:51:44 PM Sign Date: 01/26/2022 12:25:43 AM Ordering Provider: CARLYN Cisneros [facility] ([place]) LABORATORYOrdered By: Liss Lucia on 01-25-2022 Basophil, Absolute 0.10 103/mcL Invalid Interpretation Code 0.00 - 0.19 10^3/mcL AO Auto Heme SS Basophils/100 WBC (Bld) 0.9 % Invalid Interpretation Code 0.0 - 2.5 % AO Auto Heme SS Calcium [Mass/Vol] 9.8 mg/dL Invalid Interpretation Code 8.4 - 10.2 mg/dL AO ADM SS Chloride [Moles/Vol] 101 mmol/L Invalid Interpretation Code 98 - 107 mmol/L AO ADM SS CO2 [Moles/Vol] 20 mmol/L Invalid Interpretation Code 22 - 29 mmol/L AO ADM SS Creatinine [Mass/Vol] 0.82 mg/dL Invalid Interpretation Code 0.55 - 1.02 mg/dL AO ADM SS Electrolyte Balance 15.0 mEq/L Invalid Interpretation Code 4.0 - 15.0 mEq/L AO ADM SS Eosinophil, Absolute 0.70 103/mcL Invalid Interpretation Code 0.00 - 0.40 10^3/mcL AO Auto Heme SS Eosinophils/100 WBC (Bld) 9.6 % Invalid Interpretation Code 0.0 - 7.0 % AO Auto Heme SS Erythrocyte distribution width (RBC) [Ratio] 12.7 % Invalid Interpretation Code 11.5 - 14.5 % AO Auto Heme SS Fibrin D-dimer DDU (PPP) [Mass/Vol] ng/mL D-DU Invalid Interpretation Code 0 - 230 ng/mL D-DU AO Coag SS Glucose [Mass/Vol] 94 mg/dL Invalid Interpretation Code 70 - 105 mg/dL AO ADM SS Hematocrit (Bld) [Volume fraction] 43.3 % Invalid Interpretation Code 37.0 - 47.0 % AO Auto Heme SS Hemoglobin (Bld) [Mass/Vol] 14.9 G/dL Invalid Interpretation Code 12.0 - 16.0 G/dL AO Auto Heme SS Lymphocyte, Absolute 3.30 103/mcL Invalid Interpretation Code 0.77 - 3.85 10^3/mcL AO Auto Heme SS Lymphocytes/100 WBC (Bld) 43.7 % Invalid Interpretation Code 10.0 - 50.0 % AO Auto Heme SS MCH (RBC) [Entitic mass] 30.0 pg Invalid Interpretation Code 27.0 - 31.2 pg AO Auto Heme SS MCHC (RBC) [Mass/Vol] 34.4 G/dL Invalid Interpretation Code 33.0 - 37.0 G/dL AO Auto Heme SS MCV (RBC) [Entitic vol] 87.0 fL Invalid Interpretation Code 80.0 - 94.0 fL AO Auto Heme SS Monocyte, Absolute 0.60 103/mcL Invalid Interpretation Code 0.15 - 1.00 10^3/mcL AO Auto Heme SS Monocytes/100 WBC (Bld) 8.3 % Invalid Interpretation Code 1.7 - 13.0 % AO Auto Heme SS Neutrophil, Absolute 2.90 103/mcL Invalid Interpretation Code 2.85 - 6.16 10^3/mcL AO Auto Heme SS Neutrophils/100 WBC (Bld) 37.5 % Invalid Interpretation Code 37.0 - 80.0 % AO Auto Heme SS Platelet mean volume (Bld) [Entitic vol] 8.6 fL Invalid Interpretation Code 7.4 - 10.4 fL AO Auto Heme SS Platelets (Bld) [#/Vol] 340 103/mcL Invalid Interpretation Code 130 - 400 10^3/mcL AO Auto Heme SS Potassium [Moles/Vol] 3.9 mmol/L Invalid Interpretation Code 3.5 - 5.1 mmol/L AO ADM SS RBC (Bld) [#/Vol] 4.97 106/mcL Invalid Interpretation Code 4.20 - 5.40 10^6/mcL AO Auto Heme SS Sodium [Moles/Vol] 136 mmol/L Invalid Interpretation Code 136 - 145 mmol/L AO ADM SS Troponin I.cardiac DL <= 0.01 ng/mL [Mass/Vol] 18.5 ng/L Invalid Interpretation Code 0.0 - 51.4 ng/L AO Chemistry S Urea nitrogen [Mass/Vol] 9 mg/dL Invalid Interpretation Code 7 - 18 mg/dL AO ADM SS Urea nitrogen/Creatinine [Mass ratio] 11 ratio Invalid Interpretation Code 7 - 27 ratio AO ADM SS WBC (Bld) [#/Vol] 7.60 103/mcL Invalid Interpretation Code 4.60 - 10.80 10^3/mcL AO Auto Heme SS LABORATORYOrdered By: SYSTEM SYSTEM on 01-25-2022 GFR 110 ml/min/1.73sqm Invalid Interpretation Code AO Chemistry S GFR Non- 91 ml/min/1.73sqm Invalid Interpretation Code AO Chemistry S Basic Metabolic Panelon Calcium [Mass/Vol] 9.8 mg/dL Normal 7.6-11.0 [facility] Comment on above: Order Comment: Relea se to patient->Automatic [id number]&Blood Performed By: #### M G #### [address] [address] CO2 [Moles/Vol] 20.5 mmol/L Low 22.0-29.0 [facility] Comment on above: Order Comment: Relea se to patient->Automatic [id number]&Blood Performed By: #### M G #### [address] [address] Creatinine [Mass/Vol] 0.66 mg/dL Normal 0.50-1.00 [facility] Comment on above: Order Comment: Relea se to patient->Automatic 59080&Blood Performed By: #### M G #### [address] [address] Glucose [Mass/Vol] 96 mg/dL Normal 70-99 [facility] Comment on above: Order Comment: Relea se to patient->Automatic 91176&Blood Result Comment: Crit eria for Diagnosis of Diabetes: Fasting Specimen (no caloric intake for at least 8 hours): <100 mg/dL Normal 100-125 mg/dL Increased risk for Diabetes >125 mg/dL Diagnostic for Diabetes Random Glucose (any time of day without regard to last meal): > or = 200 mg/dL plus Classic Symptoms of Diabetes Performed By: #### M G #### [address] [address] Urea nitrogen [Mass/Vol] 10 mg/dL Normal 4-19 [facility] Comment on above: Order Comment: Relea se to patient->Automatic 22224&Blood Performed By: #### M G #### [address] [address] Chloride [Moles/Vol] 104 mmol/L Normal 96-108 [facility] Comment on above: Order Comment: Relea se to patient->Automatic 78096&Blood Performed By: #### M G #### [address] [address] Potassium [Moles/Vol] 4.0 mmol/L Normal 3.3-5.1 [facility] Comment on above: Order Comment: Relea se to patient->Automatic [id number]&Blood Result Comment: Hemo lysis detected. Results may be falsely elevated. Interpret results with caution. Performed By: #### M G #### [address] [address] Sodium [Moles/Vol] 138 mmol/L Normal 133-145 [facility] Comment on above: Order Comment: Relea se to patient->Automatic 10139&Blood Performed By: #### M G #### [address] [address] [address] HEAD WITHOUT IV CONTRASTo n 01-22-2022 CT HEAD WITHOUT IV CONTRAST CLINICAL HISTORY: worsening hedaches, shaking of arms and legs TECHNIQUE: CT of the head was performed with sagittal and coronal reformats without intravenous contrast. DOSE LINEAR PRODUCT: 442 mGy-cm. COMPARISON: None. FINDINGS: CEREBRAL PARENCHYMA: There is no shift of midline structures or evidence of parenchymal edema. No intracranial mass or hemorrhage is visualized. VENTRICLES: Normal size and configuration. EXTRA-AXIAL SPACES: Normal. POSTERIOR FOSSA: Normal. VISUALIZED SINUSES: Clear. LIMITED ORBITS: Normal. BONY STRUCTURES: Normal. IMPRESSION: Normal unenhanced head CT This report has been created using voice recognition software Signed by: Dr. Des Quintanilla at 01/22/2022 17:53 Normal [facility] Complete Blood Counton 01-22 Differential Complete Automated Normal [facility] Comment on above: Order Comment: Relea se to patient->Automatic [id number]&Blood Performed By: #### C BC #### [address] [address] Basophils/100 WBC (Bld) 1.20 % High 0.00-1.00 [facility] Comment on above: Order Comment: Relea se to patient->Automatic [id number]&Blood Performed By: #### C BC #### [address] [address] Eosinophils/100 WBC (Bld) 1.40 % Normal 0.00-3.00 [facility] Comment on above: Order Comment: Relea se to patient->Automatic [address]&Blood Performed By: #### C BC #### [address] [address] Erythrocyte distribution width (RBC) [Ratio] 11.8 % Normal 0.0-14.4 [facility] Comment on above: Order Comment: Relea se to patient->Automatic 82457&Blood Performed By: #### C BC #### [address] [address] Hematocrit (Bld) [Volume fraction] 42.7 % Normal 37.0-46.0 [facility] Comment on above: Order Comment: Relea se to patient->Automatic 14274&Blood Performed By: #### C BC #### [address] [address] Hemoglobin (Bld) [Mass/Vol] 15.0 g/dL Normal 12.0-15.0 [facility] Comment on above: Order Comment: Relea se to patient->Automatic 91518&Blood Performed By: #### C BC #### [address] [id number] Immature granulocytes/100 WBC (Bld) 0.10 % Normal [facility] Comment on above: Order Comment: Relea se to patient->Automatic 74289&Blood Result Comment: Maggi ture Granulocyte Percent includes promyelocytes, myelocytes, and metamyelocytes. IG% > 1.0 indicates a left shift is present. With automated differentials, bands are included in the neutrophil count and not in the Immature Granulocyte Percent. Performed By: #### C BC #### [address] [id number] Lymphocytes/100 WBC (Bld) 25.2 % Normal 25.0-45.0 [facility] Comment on above: Order Comment: Relea se to patient->Automatic 97105&Blood Performed By: #### C BC #### [address] [address] MCH (RBC) [Entitic mass] 29.9 pg Normal 25.0-35.0 [facility] Comment on above: Order Comment: Relea se to patient->Automatic 38073&Blood Performed By: #### C BC #### [address] [address] MCHC 35.1 % Normal 31.0-37.0 [facility] Comment on above: Order Comment: Relea se to patient->Automatic 95298&Blood Performed By: #### C BC #### [address] [id number] MCV (RBC) [Entitic vol] 85.1 fL Normal 78.0-96.0 [facility] Comment on above: Order Comment: Relea se to patient->Automatic 92168&Blood Performed By: #### C BC #### [address] [address] Monocytes/100 WBC (Bld) 7.50 % High 3.00-6.00 [facility] Comment on above: Order Comment: Relea se to patient->Automatic 12706&Blood Performed By: #### C BC #### [address] [address] [place] [address] Neutrophils (Bld) [#/Vol] 4.9 10*3/uL Normal 2.0-7.2 [facility] Comment on above: Order Comment: Relea se to patient->Automatic 82056&Blood Performed By: #### C BC #### [address] [address] Neutrophils/100 WBC (Bld) 64.6 % High 34.0-64.0 [facility] Comment on above: Order Comment: Relea se to patient->Automatic 78355&Blood Performed By: #### C BC #### [address] [address] Nucleated RBC/100 WBC (Bld) [Ratio] 0.0 % Normal -1.0-0.0 [facility] Comment on above: Order Comment: Relea se to patient->Automatic 81978&Blood Performed By: #### C BC #### [address] [address] Platelet mean volume (Bld) [Entitic vol] 9.9 fL Normal [facility] Comment on above: Order Comment: Relea se to patient->Automatic 39109&Blood Result Comment: MPV is platelet range and age dependent Performed By: #### C BC #### [address] [address] Platelets (Bld) [#/Vol] 337 10*3/uL Normal 150-450 [facility] Comment on above: Order Comment: Relea se to patient->Automatic 51401&Blood Performed By: #### C BC #### [facility] [address] [place], [place] [id number] RBC 5.02 10E12/L High 4.10-4.80 [facility] Comment on above: Order Comment: Relea se to patient->Automatic 96801&Blood Performed By: #### C BC #### [facility] [address] [place] [address] WBC (Bld) [#/Vol] 7.6 10*3/uL Normal 4.5-13.0 [facility] Comment on above: Order Comment: Relea se to patient->Automatic 69247&Blood Performed By: #### C BC #### [facility] [address] [place] [address] ED Provider Progress Noteon 01-22-2022 Director Rehabilitation Program Authentication Interface Message Text Efrain Acosta : 2005 Chief Complaint Patient presents with Emesis Headache Allergies Allergen Reactions Benadryl [Diphenhydramine Hcl] Anxiety Caffeine Nausea And Vomiting shaking Promethazine Anxiety Phenergan DOS: 01/22/2022 Patient is a 16 y/o female with PMH of anxiety, depression, headache who presents to the ED for headache and vomiting. Patient has a long standing history of anxiety. Two weeks ago patient was started on Atarax for anxiety and vitamin B12 and magnesium for headaches. Patient developed worsening headaches and anxiety and Atarax, B12, and magnesium were discontinued. One week ago patient was started on Wellbutrin for anxiety. On she began to feel shaky and developed headache. Wellbutrin was discontinued. Patient with migraine headache since . Describes the pain as constant, left-sided, and sharp. Headaches associated with photophobia. She has not taken anything for her headache. Also with constant, left-sided, and sharp abdominal pain that is worse with eating. Has not been tolerating food or drink. She vomits 20-30 minutes after eating or drinking. Does feel lightheaded but denies loss of consciousness. Is not sleeping well and gets cold sweats. Feeling more emotional over the past few days. Denies fevers, shortness of breath, weakness, numbness, changes in vision, phonophobia, falls, back pain. Review of Systems Constitutional: Positive for appetite change and chills. Negative for fever and unexpected weight change. HENT: Negative for congestion, rhinorrhea and sore throat. Eyes: Positive for photophobia. Negative for visual disturbance. Respiratory: Negative for cough and shortness of breath. Cardiovascular: Negative for chest pain and leg swelling. Gastrointestinal: Positive for abdominal pain, nausea and vomiting. Negative for anal bleeding, constipation and diarrhea. Endocrine: Negative for cold intolerance and heat intolerance. Genitourinary: Negative for dysuria and hematuria. Musculoskeletal: Negative for back pain, neck pain and neck stiffness. Skin: Negative for rash and wound. Neurological: Positive for tremors, light-headedness and headaches. Negative for syncope, weakness and numbness. Psychiatric/Behaviora l: Negative for behavioral problems. The patient is nervous/anxious. Past Medical History: Diagnosis Date Anxiety Depression Headache History reviewed. No pertinent surgical history. Pediatric History Patient Parents Liliya Johnson (Mother) Jeff Acosta (Father) Other Topics Concern Not on file Social History Narrative Not on file ED Triage Vitals Date and Time Temp Temp src Pulse Resp BP SpO2 Weight User 01/22/22 1700 36.9 C (98.4 F) -- 98 18 124/67 98 % -- LAS 01/22/22 1645 -- -- 105 13 -- 99 % -- LAS 01/22/22 1633 36.3 C (97.3 F) -- 134 22 107/75 100 % -- CRB 01/22/22 1508 -- -- -- -- -- -- 50.6 kg AAS 01/22/22 1507 36.7 C (98.1 F) Temporal 110 20 130/84 100 % -- AAS Physical Exam Constitutional: Appearance: She is not diaphoretic. HENT: Head: Normocephalic and atraumatic. Right Ear: External ear normal. Left Ear: External ear normal. Nose: Nose normal. No congestion or rhinorrhea. Mouth/Throat: Mouth: Mucous membranes are dry. Pharynx: No posterior oropharyngeal erythema. Oropharynx is clear. Eyes: General: No visual field deficit or scleral icterus. Right eye: No discharge. Left eye: No discharge. Extraocular Movements: Extraocular movements intact. Conjunctiva/sclera: Conjunctivae normal. Pupils: Pupils are equal, round, and reactive to light. Neck: Musculoskeletal: Normal range of motion. No muscular tenderness. Cardiovascular: Rate and Rhythm: Regular rhythm. Tachycardia present. Pulses: Normal pulses. Heart sounds: Normal heart sounds. No murmur heard. No friction rub. No gallop. Pulmonary: Effort: Pulmonary effort is normal. Breath sounds: Normal breath sounds. No wheezing, rhonchi or rales. Chest: Chest wall: No tenderness. Abdominal: General: There is no distension. Palpations: Abdomen is soft. Tenderness: There is no guarding or rebound. Comments: Mild tenderness to deep palpation LUQ. No hepatomegaly or splenomegaly. Musculoskeletal: General: No tenderness. Normal range of motion. Cervical back: No rigidity. Right lower leg: No edema. Left lower leg: No edema. Skin: General: Skin is warm and dry. Capillary Refill: Capillary refill takes less than 2 seconds. Neurological: General: No focal deficit present. Mental Status: She is alert and oriented to person, place, and time. Cranial Nerves: No cranial nerve deficit or facial asymmetry. Sensory: Sensation is intact. No sensory deficit. Motor: Tremor (BUE and BLE) present. No weakness or pronator drift. Coordination: Romberg sign negative. Coordination normal. Kleqxt-Nlib-Wvinrn Test normal. Psychiatric: Behavior: Behavior normal. (more content not included)... Normal [facility] HCG,Urineon 01-22-2022 Beta HCG ( test) Ql (U) Negative Normal [facility] Comment on above: Result Comment: Nonp regnant females and males-Negative females-Positive Performed By: #### H CGUR #### [address] [address] Magnesiumon 01-22-2022 Magnesium [Mass/Vol] 2.2 mg/dL Normal 1.5-2.2 [facility] Comment on above: Order Comment: Relea se to patient->Automatic 61180&Blood Performed By: #### M G #### [address] [place] [address] Progress Noteon 01-22-2022 Director Rehabilitation Program Authentication Interface Message Text Patient ID: Efrain Acosta is a 16 y.o. female. Her chief complaint(s) include: Medication Problem Assessment 1. Anxiety 2. Nonintractable headache, unspecified chronicity pattern, unspecified headache type 3. Shaking 4. Vomiting, intractability of vomiting not specified, presence of nausea not specified, unspecified vomiting type 5. Pallor Plan Efrain was seen today for medication problem. Diagnoses and all orders for this visit: Anxiety Nonintractable headache, unspecified chronicity pattern, unspecified headache type Shaking Vomiting, intractability of vomiting not specified, presence of nausea not specified, unspecified vomiting type Pallor Return if symptoms worsen or fail to improve. Unclear if worsening, more frequent headaches and full body shaking/tremors are due to anxiety vs possible neurologic process. Discussed with neuro. Recommended ED evaluation for head imaging to rule out neurologic process as well as labs to look for other causes of worsening tremors. If labs/head imaging normal, symptoms could all be due to anxiety. Sent to [facility] ED for further evaluation/treatment and discussed symptoms/concerns with ED attending. Subjective HPI Comments: Tried atarax when she was anxious at night. [place] very shaky and jittery. Tried it a few other times and felt the same way. Was taking B2 and magnesium daily for headaches for a few days. Headaches getting to be every day and were worse. Sharp pains. Tried wellbutrin- felt a lot worse. Took for 3 or 4 days- last dose was 4 days ago. Wasn't sleeping as much, felt like she couldn't sleep- only sleeping a few hours. Shaking all day every day- full body is shaking. Vomiting last night, sweating. Not able to eat. Dry mouth. Drinking a lot. Mom has been sleeping with her, mom can't leave her side. Can't even get up and shower. Was very pale the other day. Feels like she is getting worse. Anxiety is through the roof. Lots of crying and panic attacks. Feeling very dizzy. Afraid that something is wrong with her. Went to the ED the other day- [facility]. Feels like she is out of her body sometimes, dissociated. Feels sweaty, bad stomach aches. 20 minutes after eating, feels very nauseous. Vomiting last night. When she feels really shaky, feels like her heart is vibrating. Lots of HR's in 90-100s (checking on home pulse ox). Called Saturday to get into counseling. She is accompanied by her mother. Independent history obtained from mother. Medication Problem Primary Care Review of Systems Objective Vital Signs 01/22/22 1148 BP: 120/71 Pulse: (!) 110 Weight: 50 kg Height: (!) 149 cm Body mass index is 22.52 kg/m . Physical Exam Constitutional: She appears distressed (visibly anxious). HENT: Head: Atraumatic. Ears: Right Ear: Tympanic membrane and external ear normal. Left Ear: Tympanic membrane and external ear normal. Nose: No nasal discharge. Mouth/Throat: Mucous membranes are moist. No pharynx erythema. Eyes: Conjunctivae and EOM are normal. Pupils are equal, round, and reactive to light. Right eye exhibits no nystagmus. Left eye exhibits no nystagmus. Neck: Neck supple. Thyroid normal. Cardiovascular: Normal rate and regular rhythm. Heart murmur not heard. Pulmonary/Chest: Effort normal and breath sounds normal. There is normal air entry. No respiratory distress. She has no wheezes. She has no rhonchi. She has no rales. Abdominal: Soft. There is no abdominal tenderness. Musculoskeletal: Cervical back: Normal range of motion and neck supple. No rigidity. Lymphadenopathy: No right anterior and posterior cervical adenopathy present. No left anterior and posterior cervical adenopathy present. Neurological: No focal deficit present. She is alert and oriented for age. She exhibits normal muscle tone. Shaking of upper and lower extremities throughout history and exam. Skin: Capillary refill takes less than 3 seconds. Skin is warm. Skin is not pale. Findings: No rash. Vitals reviewed: Blood pressure 120/71, pulse (!) 110, height (!) 149 cm, weight 50 kg. Normal [facility] TSH with reflex T4FRon 01-22 TSH with reflex T4FR 0.586 uIU/mL Normal 0.500-4.300 [facility] Comment on above: Order Comment: Relea se to patient->Automatic [id number]&Blood Performed By: #### C #### [facility] [place] [address] US DUPLEX ABDOMEN PELVIS COM PLETEon 01-22-2022 US DUPLEX ABDOMEN PELVIS COMPLETE CLINICAL HISTORY: Left lower quadrant pain TECHNIQUE: Transabdominal alanis scale, color and spectral Doppler ultrasound of the uterus and adnexa was performed. COMPARISON: None. FINDINGS: UTERUS: The uterus measures 6.6 x 2.5 x 3.8 cm. Uterine configuration is normal for age. Echogenic endometrial stripe is 2.9 mm in thickness. FREE FLUID: None. RIGHT OVARY SIZE: 2.0 x 2.1 x 2.1 cm. VOLUME: 4.7 mL. FOLLICLES: Normal follicles seen. PARENCHYMA: Normal. OTHER: No focal lesion. RIGHT DOPPLER: Arterial and venous waveforms were seen on spectral Doppler imaging. Color flow is seen in the ovary. LEFT OVARY SIZE: 2.0 x 1.6 x 3.3 cm. VOLUME: 5.7 mL. FOLLICLES: Normal follicles seen. PARENCHYMA: Normal. OTHER: No focal lesion. LEFT DOPPLER: Arterial and venous waveforms were seen on spectral Doppler imaging. Color flow is seen in the ovary. IMPRESSION: Normal ultrasound and doppler evaluation of the uterus and adnexa. This report has been created using voice recognition software Signed by: Dr. Des Quintanilla at 01/22/2022 18:56 Normal [facility] US PELVIS NON OB COMPLETEon 01-22-2022 US PELVIS NON OB COMPLETE CLINICAL HISTORY: Left lower quadrant pain TECHNIQUE: Transabdominal alanis scale, color and spectral Doppler ultrasound of the uterus and adnexa was performed. COMPARISON: None. FINDINGS: UTERUS: The uterus measures 6.6 x 2.5 x 3.8 cm. Uterine configuration is normal for age. Echogenic endometrial stripe is 2.9 mm in thickness. FREE FLUID: None. RIGHT OVARY SIZE: 2.0 x 2.1 x 2.1 cm. VOLUME: 4.7 mL. FOLLICLES: Normal follicles seen. PARENCHYMA: Normal. OTHER: No focal lesion. RIGHT DOPPLER: Arterial and venous waveforms were seen on spectral Doppler imaging. Color flow is seen in the ovary. LEFT OVARY SIZE: 2.0 x 1.6 x 3.3 cm. VOLUME: 5.7 mL. FOLLICLES: Normal follicles seen. PARENCHYMA: Normal. OTHER: No focal lesion. LEFT DOPPLER: Arterial and venous waveforms were seen on spectral Doppler imaging. Color flow is seen in the ovary. IMPRESSION: Normal ultrasound and doppler evaluation of the uterus and adnexa. This report has been created using voice recognition software Signed by: Dr. Des Quintanilla at 01/22/2022 18:56 Normal [facility] Urinalysis,Automatedon 01-22 Bacteria Many Normal [facility] Comment on above: Order Comment: Relea se to patient->Automatic 03057&Blood Performed By: #### M G #### [place] [address] Mucous Large Normal [facility] Comment on above: Order Comment: Relea se to patient->Automatic 22545&Blood Performed By: #### M G #### [address] [address] RBC (U) [#/Vol] 16.0 /uL Normal 0.0-20.0 [facility] Comment on above: Order Comment: Relea se to patient->Automatic 57730&Blood Performed By: #### M G #### [address] [address] Squamous Epithelial Cells 23 /uL High 0-20 [facility] Comment on above: Order Comment: Relea se to patient->Automatic 97167&Blood Performed By: #### M G #### [address] [address] Transitional Epithelial Cells 3 /uL Normal 0-20 [facility] Comment on above: Order Comment: Relea se to patient->Automatic 70897&Blood Performed By: #### M G #### [address] [address] WBC (U) [#/Vol] 49.0 /uL High 0.0-20.0 [facility] Comment on above: Order Comment: Relea se to patient->Automatic 11882&Blood Performed By: #### M G #### [address] [address] Urinalysis,Completeon 2021 Bilirubin,urine Negative Normal Negative [facility] Comment on above: Order Comment: Relea se to patient->Automatic 55977&Blood Performed By: #### M G #### [address] [address] Character Cloudy Normal [facility] Comment on above: Order Comment: Relea se to patient->Automatic 82600&Blood Performed By: #### M G #### [address] [address] Color (U) Yellow Normal [facility] Comment on above: Order Comment: Relea se to patient->Automatic 87659&Blood Performed By: #### M G #### [address] [address] Glucose Ql (U) Negative Normal Negative [facility] Comment on above: Order Comment: Relea se to patient->Automatic 23784&Blood Performed By: #### M G #### [address] [address] Ketones Ql (U) 2+ mg/dL Abnormal Negative [facility] Comment on above: Order Comment: Relea se to patient->Automatic 51354&Blood Performed By: #### M G #### [address] [address] Leukocyte esterase Test strip Ql (U) 1+ leuk/ul Abnormal Negative [facility] Comment on above: Order Comment: Relea se to patient->Automatic 15734&Blood Performed By: #### M G #### [address] [address] Nitrite Ql (U) Negative Normal Negative [facility] Comment on above: Order Comment: Relea se to patient->Automatic 13037&Blood Performed By: #### M G #### [address] [address] pH, Urine 5.0 Normal 5.0-8.0 [facility] Comment on above: Order Comment: Relea se to patient->Automatic 35060&Blood Performed By: #### M G #### [address] [address] Protein,Ur Negative Normal Neg.-Trace [facility] Comment on above: Order Comment: Relea se to patient->Automatic 36560&Blood Performed By: #### M G #### [address] [address] Specific gravity (U) [Rel density] 1.029 Normal 1.005-1.030 [facility] Comment on above: Order Comment: Relea se to patient->Automatic 74465&Blood Performed By: #### M G #### [address] [address] Urinalysis-Comment - Normal [facility] Comment on above: Order Comment: Relea se to patient->Automatic 02010&Blood Result Comment: Ascorbic Acid is present in this urine sample. This may cause possible interferences resulting in false negative reactions for blood, bilirubin, glucose or nitrite tests. False positive reactions may be seen for reducing substances. Interpret with caution. Performed By: #### M G #### [address] [address] Urobilinogen (U) [Mass/Vol] 0.2 mg/dL Normal Negative [facility] Comment on above: Order Comment: Relea se to patient->Automatic 68942&Blood Performed By: #### M G #### [address] [address] Volume 12 ml Normal 12 [facility] Comment on above: Order Comment: Relea se to patient->Automatic 03772&Blood Performed By: #### M G #### [address] [id number] Urine Cultureon 01-22-2022 Bacteria identified Cx Nom (U) Release to patient->Automatic 57199&Urine-CCMS Urine Culture: 10,000 - 50,000 CFU/ml of Normal Skin/urogenital jayden Source: URNCC Collected: 01/22/22 20:02 Site: Received : 01/22/22 21:06 Urine Culture FINAL 01/24/22 08:19 10,000 - 50,000 CFU/ml of Normal Skin/urogenital jayden present Normal [facility] Comment on above: Performed By: #### C BC #### [address] [id number] eGFRon 01-22-2022 eGFR see below Normal [facility] Comment on above: Order Comment: Relea se to patient->Automatic 72010&Blood Result Comment: Refe rence range: > 3 months: >90 ml/min/1.73m^2 Ref. Range change effective 02/10/2018 Unable to calculate EGFR; height not available. - To manually calculate eGFR use Bedside Marquez equation. - (0.41 X height in centimeters)/serum creatinine mg/dL Performed By: #### E GFR #### [address] [address] .Urinalysis Microscopic (AO) on 01-13-2022 UA Bacteria 2+ /hpf Abnormal [facility] ([place]) Comment on above: Performed By: #### P REGU, UA, UAMICAO #### [address] [place], [place] [address] UA RBC None Seen Normal None Seen [facility] ([place]) Comment on above: Performed By: #### P REGU, UA, UAMICAO #### [address] [place], [place] [address] UA Squam Epithelial 10-15 Abnormal None Seen [facility] ([place]) Comment on above: Performed By: #### P REGU, UA, UAMICAO #### [address] [address] UA Transitional Epithelial 0-5 Abnormal [facility] ([place]) Comment on above: Performed By: #### P REGU, UA, UAMICAO #### [id number] [place], [place] [address] UA WBC 5-10 Abnormal None Seen [facility] ([place]) Comment on above: Performed By: #### P REGU, UA, UAMICAO #### [address] [place], [place] [address] LABORATORYOrdered By: Radha Wheat on 01-13-2022 HCG ( test) Ql Negative (01/13/22 6:55 PM) Invalid Interpretation Code AO Manual Urine SS test (u) int Not detected Invalid Interpretation Code AO Manual Urine SS LABORATORYOrdered By: Leidy Mcgill on 01-13-2022 Appearance (U) Cloudy *ABN* (01/13/22 6:52 PM) Invalid Interpretation Code Clear AO Auto Urine SS Bacteria LM.HPF (Urine sed) [#/Area] 2 /[HPF] Invalid Interpretation Code AO Auto Urine SS Bilirubin Ql (U) Negative (01/13/22 6:52 PM) Invalid Interpretation Code Negative AO Auto Urine SS Color (U) Yellow (01/13/22 6:52 PM) Invalid Interpretation Code AO Auto Urine SS Glucose Test strip (U) [Mass/Vol] Negative Invalid Interpretation Code Negativemg/dL AO Auto Urine SS Hemoglobin Auto test strip (U) [Mass/Vol] Trace *ABN* (01/13/22 6:52 PM) Invalid Interpretation Code Negative AO Auto Urine SS Ketones Ql (U) Negative Invalid Interpretation Code Negativemg/dL AO Auto Urine SS UA Leuk Est Small *ABN* (01/13/22 6:52 PM) Invalid Interpretation Code Negative AO Auto Urine SS UA Nitrite Negative (01/13/22 6:52 PM) Invalid Interpretation Code Negative AO Auto Urine SS UA pH 6.5 (01/13/22 6:52 PM) Invalid Interpretation Code 5.0 - 8.0 AO Auto Urine SS UA Protein Negative Invalid Interpretation Code Negativemg/dL AO Auto Urine SS UA RBC None Seen /HPF Invalid Interpretation Code None Seen/HPF AO Auto Urine SS UA Spec Grav 1.010 *ABN* (01/13/22 6:52 PM) Invalid Interpretation Code 1.015-1.025 AO Auto Urine SS UA Specimen Type Clean Catch (01/13/22 6:52 PM) Invalid Interpretation Code AO Auto Urine SS UA Squam Epithelial 10-15 /HPF Invalid Interpretation Code None Seen/HPF AO Auto Urine SS UA Transitional Epithelial 0-5 /HPF Invalid Interpretation Code AO Auto Urine SS UA Urobilinogen 0.2 E.U./dL Invalid Interpretation Code 0.2-1.0E.U./d L AO Auto Urine SS WBC LM.HPF (Urine sed) [#/Area] 5-10 /HPF Invalid Interpretation Code None Seen/HPF AO Auto Urine SS PREGUon 01-13-2022 HCG ( test) Ql (U) Negative Normal [facility] ([place]) Comment on above: Performed By: #### P REGU, UA, UAMICAO #### [address] [address] test (u) int Not detected Invalid Interpretation Code [facility] ([place]) Comment on above: Performed By: #### P REGU, UA, UAMICAO #### [address] [address] UAon 01-13-2022 Color (U) Yellow Normal [facility] ([place]) Comment on above: Performed By: #### P REGU, UA, UAMICAO #### [address] [address] Glucose (U) [Mass/Vol] Negative Normal Negative [facility] ([place]) Comment on above: Performed By: #### P REGU, UA, UAMICAO #### [address] [address] Ketones Ql (U) Negative Normal Negative [facility] ([place]) Comment on above: Performed By: #### P REGU, UA, UAMICAO #### [address] [address] UA Appear Cloudy Abnormal Clear [facility] ([place]) Comment on above: Performed By: #### P REGU, UA, UAMICAO #### [address] [address] UA Blood Trace Abnormal Negative [facility] ([place]) Comment on above: Performed By: #### P REGU, UA, UAMICAO #### [place] [address] UA Leuk Est Small Abnormal Negative [facility] ([place]) Comment on above: Performed By: #### P REGU, UA, UAMICAO #### [place] [address] UA Nitrite Negative Normal Negative [facility] ([place]) Comment on above: Performed By: #### P REGU, UA, UAMICAO #### [place] [address] UA pH 6.5 Normal 5.0 - 8.0 [facility] ([place]) Comment on above: Performed By: #### P REGU, UA, UAMICAO #### [place] [address] UA Protein Negative Normal Negative [facility] ([place]) Comment on above: Performed By: #### P REGU, UA, UAMICAO #### [place] [address] UA Spec Grav 1.010 Abnormal 1.015-1.025 [facility] ([place]) Comment on above: Performed By: #### P REGU, UA, UAMICAO #### [place] [address] UA Specimen Type Clean Catch Normal [facility] ([place]) Comment on above: Performed By: #### P REGU, UA, UAMICAO #### [place] [address] UA Urobilinogen 0.2 E.U./dL Normal 0.2-1.0 [facility] ([place]) Comment on above: Performed By: #### P REGU, UA, UAMICAO #### [place] [address] Urobilinogen (U) [Mass/Vol] Negative Normal Negative [facility] ([place]) Comment on above: Performed By: #### P REGU, UA, UAMICAO #### [address] [address] LABORATORYOrdered By: Marty Cloud on 12-16-2021 Blood Glucose Interventions Notify physician (12/16/21 3:15 PM) [facility] Work Phone: Blood Glucose Testing Reason Routine (12/16/21 3:15 PM) [facility] Work Phone: Glucose [Mass/Vol] 90 mg/dL Invalid Interpretation Code 70 - 110 mg/dL [facility] Work Phone: Time of Stated Blood Glucose [phone] [facility] Work Phone: .Auto Diffon 10-19-2021 Basophil, Absolute 0.10 10 3/mcL Normal 0.00-0.19 [facility] ([place]) Comment on above: Performed By: #### P REGU, UA, UAMICAO #### [address] [address] Basophils/100 WBC (Bld) 1.3 % Normal 0.0-2.5 A [facility] ([place]) Comment on above: Performed By: #### P REGU, UA, UAMICAO #### [address] [address] Eosinophil, Absolute 1.60 10 3/mcL High 0.00-0.40 A [facility] ([place]) Comment on above: Performed By: #### P REGU, UA, UAMICAO #### [address] [address] Eosinophils/100 WBC (Bld) 19.1 % High 0.0-7.0 [facility] ([place]) Comment on above: Performed By: #### P REGU, UA, UAMICAO #### [address] [address] Lymphocyte, Absolute 2.50 10 3/mcL Normal 0.77-3.85 A [facility] ([place]) Comment on above: Performed By: #### P REGU, UA, UAMICAO #### [address] [address] Lymphocytes/100 WBC (Bld) 29.3 % Normal 10.0-50.0 [facility] ([place]) Comment on above: Performed By: #### P REGU, UA, UAMICAO #### [address] [address] Monocyte, Absolute 0.60 10 3/mcL Normal 0.15-1.00 [facility] ([place]) Comment on above: Performed By: #### P REGU, UA, UAMICAO #### [address] [address] Monocytes/100 WBC (Bld) 6.6 % Normal 1.7-13.0 A [facility] ([place]) Comment on above: Performed By: #### P REGU, UA, UAMICAO #### [address] [address] Neutrophils/100 WBC (Bld) 43.7 % Normal 37.0-80.0 [facility] ([place]) Comment on above: Performed By: #### P REGU, UA, UAMICAO #### [address] [address] .GFRon 10-19-2021 GFR 124 ml/min/1.73sqm Normal [facility] ([place]) Comment on above: Result Comment: GFR Population mean for , Non- Americans Ages 20-29 = 116 mL/min/1.73 sq.m. Ages 30-39 = 107 mL/min/1.73 sq.m. Ages 40-49 = 99 mL/min/1.73 sq.m. Ages 50-59 = 93 mL/min/1.73 sq.m. Ages 60-69 = 85 mL/min/1.73 sq.m. Ages 70+ = 75 mL/min/1.73 sq.m. Chronic Kidney Disease: Less than 60 mL/min/1.73 square meters End Stage Renal Disease: Less than 15 mL/min/1.73 square meters Performed By: #### P REGU, UA, UAMICAO #### [address] [address] GFR Non- 102 ml/min/1.73sqm Normal [facility] ([place]) Comment on above: Result Comment: GFR Population mean for , Non- Americans Ages 20-29 = 116 mL/min/1.73 sq.m. Ages 30-39 = 107 mL/min/1.73 sq.m. Ages 40-49 = 99 mL/min/1.73 sq.m. Ages 50-59 = 93 mL/min/1.73 sq.m. Ages 60-69 = 85 mL/min/1.73 sq.m. Ages 70+ = 75 mL/min/1.73 sq.m. Chronic Kidney Disease: Less than 60 mL/min/1.73 square meters End Stage Renal Disease: Less than 15 mL/min/1.73 square meters Performed By: #### P REGU, UA, UAMICAO #### [address] [address] .NEUABSon 10-19-2021 Neutrophil, Absolute 3.70 10 3/mcL Normal 2.85-6.16 A [facility] ([place]) Comment on above: Performed By: #### P REGU, UA, UAMICAO #### [address] [address] .Urinalysis Microscopic (AO) on 10-19-2021 UA Bacteria Trace Abnormal [facility] ([place]) Comment on above: Performed By: #### P REGU, UA, UAMICAO #### [address] [address] UA RBC None Seen Normal None Seen [facility] ([place]) Comment on above: Performed By: #### P REGU, UA, UAMICAO #### [address] [address] UA Squam Epithelial 0-5 Abnormal None Seen [facility] ([place]) Comment on above: Performed By: #### P REGU, UA, UAMICAO #### [address] [address] UA WBC 0-5 Abnormal None Seen [facility] ([place]) Comment on above: Performed By: #### P REGU, UA, UAMICAO #### [address] [address] CBCon 10-19-2021 Erythrocyte distribution width (RBC) [Ratio] 12.7 % Normal 11.5-14.5 [facility] ([place]) Comment on above: Performed By: #### C BC, ADIFF, ANEU, LIP, CMP, GFR #### [place] [address] Hematocrit (Bld) [Volume fraction] 43.0 % Normal 37.0-47.0 [facility] ([place]) Comment on above: Performed By: #### C BC, ADIFF, ANEU, LIP, CMP, GFR #### [place] [address] Hgb 14.7 G/dL Normal 12.0-16.0 [facility] ([place]) Comment on above: Performed By: #### C BC, ADIFF, ANEU, LIP, CMP, GFR #### [address] [address] MCH (RBC) [Entitic mass] 29.9 pg Normal 27.0-31.2 [facility] ([place]) Comment on above: Performed By: #### C BC, ADIFF, ANEU, LIP, CMP, GFR #### [place] [address] MCHC 34.1 G/dL Normal 33.0-37.0 [facility] ([place]) Comment on above: Performed By: #### C BC, ADIFF, ANEU, LIP, CMP, GFR #### [place] [address] MCV (RBC) [Entitic vol] 87.9 fL Normal 80.0-94.0 A [facility] ([place]) Comment on above: Performed By: #### C BC, ADIFF, ANEU, LIP, CMP, GFR #### [address] [address] Platelet 311 10 3/mcL Normal 130-400 [facility] ([place]) Comment on above: Performed By: #### C BC, ADIFF, ANEU, LIP, CMP, GFR #### [address] [address] Platelet mean volume (Bld) [Entitic vol] 7.9 fL Normal 7.4-10.4 [facility] ([place]) Comment on above: Performed By: #### C BC, ADIFF, ANEU, LIP, CMP, GFR #### [place] [address] RBC 4.90 10 6/mcL Normal 4.20-5.40 [facility] ([place]) Comment on above: Performed By: #### C BC, ADIFF, ANEU, LIP, CMP, GFR #### [place] [address] WBC 8.50 10 3/mcL Normal 4.60-10.80 [facility] ([place]) Comment on above: Performed By: #### C BC, ADIFF, ANEU, LIP, CMP, GFR #### [address] [address] CMPon 10-19-2021 Albumin Level 4.5 G/dL Normal 3.5-5.0 [facility] ([place]) Comment on above: Performed By: #### P REGU, UA, UAMICAO #### [address] [address] Albumin/Globulin [Mass ratio] 1.3 {ratio} Normal 1.1-2.5 [facility] ([place]) Comment on above: Performed By: #### P REGU, UA, UAMICAO #### [address] [address] ALP [Catalytic activity/Vol] 100 U/L Normal 40-135 [facility] ([place]) Comment on above: Performed By: #### P REGU, UA, UAMICAO #### [address] [address] ALT [Catalytic activity/Vol] 33 U/L Normal 14-59 [facility] ([place]) Comment on above: Performed By: #### P REGU, UA, UAMICAO #### [address] [address] AST [Catalytic activity/Vol] 19 U/L Normal 10-40 [facility] ([place]) Comment on above: Performed By: #### P REGU, UA, UAMICAO #### [address] [address] Bili Total 0.6 mg/dL Normal 0.2-1.0 [facility] ([place]) Comment on above: Result Comment: Use of this assay is not recommended for patients undergoing treatment with eltrombopag due to the potential for falsely elevated results. Performed By: #### P REGU, UA, UAMICAO #### [address] [address] BUN/Creatinine Ratio 11 ratio Normal 7-27 [facility] ([place]) Comment on above: Performed By: #### P REGU, UA, UAMICAO #### [address] [address] Calcium [Mass/Vol] 9.4 mg/dL Normal 8.4-10.2 [facility] ([place]) Comment on above: Performed By: #### P REGU, UA, UAMICAO #### [address] [address] Chloride [Moles/Vol] 103 mmol/L Normal 98-107 [facility] ([place]) Comment on above: Performed By: #### P REGU, UA, UAMICAO #### [address] [address] CO2 [Moles/Vol] 25 mmol/L Normal 22-29 [facility] ([place]) Comment on above: Performed By: #### P REGU, UA, UAMICAO #### [address] [address] Creatinine [Mass/Vol] 0.74 mg/dL Normal 0.55-1.02 [facility] ([place]) Comment on above: Performed By: #### P REGU, UA, UAMICAO #### [address] [address] Electrolyte Balance 11.0 mEq/L Normal [facility] ([place]) Comment on above: Performed By: #### P REGU, UA, UAMICAO #### [address] [address] Globulin 3.4 G/dL Normal [facility] ([place]) Comment on above: Performed By: #### P REGU, UA, UAMICAO #### [address] [address] Glucose [Mass/Vol] 87 mg/dL Normal 70-105 [facility] ([place]) Comment on above: Performed By: #### P REGU, UA, UAMICAO #### [address] [address] Potassium [Moles/Vol] 3.7 mmol/L Normal 3.5-5.1 [facility] ([place]) Comment on above: Performed By: #### P REGU, UA, UAMICAO #### [address] [address] Sodium [Moles/Vol] 139 mmol/L Normal 136-145 [facility] ([place]) Comment on above: Performed By: #### P REGU, UA, UAMICAO #### [address] [address] Total Protein 7.9 G/dL Normal 6.4-8.2 [facility] ([place]) Comment on above: Performed By: #### P REGU, UA, UAMICAO #### [address] [address] Urea nitrogen [Mass/Vol] 8 mg/dL Normal 7-18 [facility] ([place]) Comment on above: Performed By: #### P REGU, UA, UAMICAO #### [place] [address] [place], [place] [address] CT ABD/PELVIS W/ IV CONTRAST ONLYon 10-19-2021 CT ABD/PELVIS W/ IV CONTRAST ONLY ORIGINAL EXAMINATION: CT OF THE ABDOMEN AND PELVIS WITH CONTRAST 10/19/2021 7:38 pm TECHNIQUE: CT of the abdomen and pelvis was performed with the administration of intravenous contrast. Multiplanar reformatted images are provided for review. Dose modulation, iterative reconstruction, and/or weight based adjustment of the mA/kV was utilized to reduce the radiation dose to as low as reasonably achievable. COMPARISON: None. HISTORY: ORDERING SYSTEM PROVIDED HISTORY: Reason for Exam: pain Right-sided abdominal pain, burning with urination FINDINGS: Lower Chest: Included lung bases are clear. Heart size is normal. Organs: The liver, gallbladder, spleen, pancreas, and adrenals are within normal limits. Kidneys, ureters, and bladder are unremarkable. GI/Bowel: Small and large bowel are normal in course and caliber. Normal appendix. No free air or fluid. Pelvis: Uterus and adnexa are physiologic. Peritoneum/Retroperit oneum: Aorta is normal in course and caliber. IVC and portal vein are unremarkable. No lymphadenopathy. Bones/Soft Tissues: No acute osseous abnormality or suspicious osseous lesion. IMPRESSION: No acute intra-abdominal process. I have personally reviewed the images of this examination and agree with the resident's findings and interpretation. Interpreted by: Kashif Stout MD Preliminary Report By: Barb Georges Electronically signed By Kashif Stout MD Dictated Date: 10/19/2021 7:44:05 PM Prelim Date: 10/19/2021 7:48:51 PM Sign Date: 10/19/2021 7:54:09 PM Ordering Provider: NAMITA BARBOZA [facility] ([place]) LABORATORYOrdered By: Leidy Mcgill on 10-19-2021 Albumin BCP dye [Mass/Vol] 4.5 G/dL Invalid Interpretation Code 3.5 - 5.0 G/dL AO ADM SS Albumin/Globulin [Mass ratio] 1.3 {ratio} Invalid Interpretation Code 1.1 - 2.5 ratio AO ADM SS ALP [Catalytic activity/Vol] 100 U/L Invalid Interpretation Code 40 - 135 U/L AO ADM SS ALT With P-5'-P [Catalytic activity/Vol] 33 U/L Invalid Interpretation Code 14 - 59 U/L AO ADM SS AST With P-5'-P [Catalytic activity/Vol] 19 U/L Invalid Interpretation Code 10 - 40 U/L AO ADM SS Bilirubin [Mass/Vol] 0.6 mg/dL Invalid Interpretation Code 0.2 - 1.0 mg/dL AO ADM SS Calcium [Mass/Vol] 9.4 mg/dL Invalid Interpretation Code 8.4 - 10.2 mg/dL AO ADM SS Chloride [Moles/Vol] 103 mmol/L Invalid Interpretation Code 98 - 107 mmol/L AO ADM SS CO2 [Moles/Vol] 25 mmol/L Invalid Interpretation Code 22 - 29 mmol/L AO ADM SS Creatinine [Mass/Vol] 0.74 mg/dL Invalid Interpretation Code 0.55 - 1.02 mg/dL AO ADM SS Electrolyte Balance 11.0 mEq/L Invalid Interpretation Code AO ADM SS Globulin 3.4 G/dL Invalid Interpretation Code AO ADM SS Glucose [Mass/Vol] 87 mg/dL Invalid Interpretation Code 70 - 105 mg/dL AO ADM SS Lipase [Catalytic activity/Vol] 95 U/L Invalid Interpretation Code 73 - 393 U/L AO ADM SS Potassium [Moles/Vol] 3.7 mmol/L Invalid Interpretation Code 3.5 - 5.1 mmol/L AO ADM SS Protein [Mass/Vol] 7.9 G/dL Invalid Interpretation Code 6.4 - 8.2 G/dL AO ADM SS Sodium [Moles/Vol] 139 mmol/L Invalid Interpretation Code 136 - 145 mmol/L AO ADM SS Urea nitrogen [Mass/Vol] 8 mg/dL Invalid Interpretation Code 7 - 18 mg/dL AO ADM SS Urea nitrogen/Creatinine [Mass ratio] 11 ratio Invalid Interpretation Code 7 - 27 ratio AO ADM SS LABORATORYOrdered By: Gilda Salazar on 10-19-2021 Appearance (U) Slightly Cloudy *ABN* (10/19/21 6:23 PM) Invalid Interpretation Code Clear AO Auto Urine SS Bacteria LM.HPF (Urine sed) [#/Area] Trace /HPF Invalid Interpretation Code AO Auto Urine SS Basophil, Absolute 0.10 103/mcL Invalid Interpretation Code 0.00 - 0.19 10^3/mcL AO Auto Heme SS Basophils/100 WBC (Bld) 1.3 % Invalid Interpretation Code 0.0 - 2.5 % AO Auto Heme SS Bilirubin Ql (U) Negative (10/19/21 6:23 PM) Invalid Interpretation Code Negative AO Auto Urine SS Color (U) Yellow (10/19/21 6:23 PM) Invalid Interpretation Code AO Auto Urine SS Eosinophil, Absolute 1.60 103/mcL Invalid Interpretation Code 0.00 - 0.40 10^3/mcL AO Auto Heme SS Eosinophils/100 WBC (Bld) 19.1 % Invalid Interpretation Code 0.0 - 7.0 % AO Auto Heme SS Erythrocyte distribution width (RBC) [Ratio] 12.7 % Invalid Interpretation Code 11.5 - 14.5 % AO Auto Heme SS Glucose Test strip (U) [Mass/Vol] Negative Invalid Interpretation Code Negativemg/dL AO Auto Urine SS HCG ( test) Ql Negative (10/19/21 6:23 PM) Invalid Interpretation Code AO Manual Urine SS Hematocrit (Bld) [Volume fraction] 43.0 % Invalid Interpretation Code 37.0 - 47.0 % AO Auto Heme SS Hemoglobin (Bld) [Mass/Vol] 14.7 G/dL Invalid Interpretation Code 12.0 - 16.0 G/dL AO Auto Heme SS Hemoglobin Auto test strip (U) [Mass/Vol] Negative (10/19/21 6:23 PM) Invalid Interpretation Code Negative AO Auto Urine SS Ketones Ql (U) Negative Invalid Interpretation Code Negativemg/dL AO Auto Urine SS Lymphocyte, Absolute 2.50 103/mcL Invalid Interpretation Code 0.77 - 3.85 10^3/mcL AO Auto Heme SS Lymphocytes/100 WBC (Bld) 29.3 % Invalid Interpretation Code 10.0 - 50.0 % AO Auto Heme SS MCH (RBC) [Entitic mass] 29.9 pg Invalid Interpretation Code 27.0 - 31.2 pg AO Auto Heme SS MCHC (RBC) [Mass/Vol] 34.1 G/dL Invalid Interpretation Code 33.0 - 37.0 G/dL AO Auto Heme SS MCV (RBC) [Entitic vol] 87.9 fL Invalid Interpretation Code 80.0 - 94.0 fL AO Auto Heme SS Monocyte, Absolute 0.60 103/mcL Invalid Interpretation Code 0.15 - 1.00 10^3/mcL AO Auto Heme SS Monocytes/100 WBC (Bld) 6.6 % Invalid Interpretation Code 1.7 - 13.0 % AO Auto Heme SS Neutrophil, Absolute 3.70 103/mcL Invalid Interpretation Code 2.85 - 6.16 10^3/mcL AO Auto Heme SS Neutrophils/100 WBC (Bld) 43.7 % Invalid Interpretation Code 37.0 - 80.0 % AO Auto Heme SS Platelet mean volume (Bld) [Entitic vol] 7.9 fL Invalid Interpretation Code 7.4 - 10.4 fL AO Auto Heme SS Platelets (Bld) [#/Vol] 311 103/mcL Invalid Interpretation Code 130 - 400 10^3/mcL AO Auto Heme SS test (u) int Not detected Invalid Interpretation Code AO Manual Urine SS RBC (Bld) [#/Vol] 4.90 106/mcL Invalid Interpretation Code 4.20 - 5.40 10^6/mcL AO Auto Heme SS UA Leuk Est Small *ABN* (10/19/21 6:23 PM) Invalid Interpretation Code Negative AO Auto Urine SS UA Nitrite Negative (10/19/21 6:23 PM) Invalid Interpretation Code Negative AO Auto Urine SS UA pH 7.0 (10/19/21 6:23 PM) Invalid Interpretation Code 5.0 - 8.0 AO Auto Urine SS UA Protein Negative Invalid Interpretation Code Negativemg/dL AO Auto Urine SS UA RBC None Seen /HPF Invalid Interpretation Code None Seen/HPF AO Auto Urine SS UA Spec Grav 1.020 (10/19/21 6:23 PM) Invalid Interpretation Code 1.015-1.025 AO Auto Urine SS UA Specimen Type Clean Catch (10/19/21 6:23 PM) Invalid Interpretation Code AO Auto Urine SS UA Squam Epithelial 0-5 /HPF Invalid Interpretation Code None Seen/HPF AO Auto Urine SS UA Urobilinogen 0.2 E.U./dL Invalid Interpretation Code 0.2-1.0E.U./d L AO Auto Urine SS WBC (Bld) [#/Vol] 8.50 103/mcL Invalid Interpretation Code 4.60 - 10.80 10^3/mcL AO Auto Heme SS WBC LM.HPF (Urine sed) [#/Area] 0-5 /HPF Invalid Interpretation Code None Seen/HPF AO Auto Urine SS LABORATORYOrdered By: SYSTEM SYSTEM on 10-19-2021 GFR 124 ml/min/1.73sqm Invalid Interpretation Code AO Chemistry S GFR Non- 102 ml/min/1.73sqm Invalid Interpretation Code AO Chemistry S LIPon 10-19-2021 Lipase Level 95 U/L Normal 73-393 [facility] ([place]) Comment on above: Performed By: #### P REGU, UA, UAMICAO #### [place] [id number] PREGUon 10-19-2021 HCG ( test) Ql (U) Negative Normal [facility] ([place]) Comment on above: Performed By: #### P REGU, UA, UAMICAO #### [place] [address] test (u) int Not detected Invalid Interpretation Code [facility] ([place]) Comment on above: Performed By: #### P REGU, UA, UAMICAO #### [place] [address] UAon 10-19-2021 Color (U) Yellow Normal [facility] ([place]) Comment on above: Performed By: #### P REGU, UA, UAMICAO #### [place] [address] Glucose (U) [Mass/Vol] Negative Normal Negative [facility] ([place]) Comment on above: Performed By: #### P REGU, UA, UAMICAO #### [place] [address] Ketones Ql (U) Negative Normal Negative [facility] ([place]) Comment on above: Performed By: #### P REGU, UA, UAMICAO #### [place] [address] UA Appear Slightly Cloudy Abnormal Clear [facility] ([place]) Comment on above: Performed By: #### P REGU, UA, UAMICAO #### [place] [address] UA Blood Negative Normal Negative [facility] ([place]) Comment on above: Performed By: #### P REGU, UA, UAMICAO #### [address] [address] UA Leuk Est Small Abnormal Negative [facility] ([place]) Comment on above: Performed By: #### P REGU, UA, UAMICAO #### [address] [address] UA Nitrite Negative Normal Negative [facility] ([place]) Comment on above: Performed By: #### P REGU, UA, UAMICAO #### [address] [address] UA pH 7.0 Normal 5.0 - 8.0 [facility] ([place]) Comment on above: Performed By: #### P REGU, UA, UAMICAO #### [address] [address] UA Protein Negative Normal Negative [facility] ([place]) Comment on above: Performed By: #### P REGU, UA, UAMICAO #### [address] [address] UA Spec Grav 1.020 Normal 1.015-1.025 [facility] ([place]) Comment on above: Performed By: #### P REGU, UA, UAMICAO #### [address] [address] UA Specimen Type Clean Catch Normal [facility] ([place]) Comment on above: Performed By: #### P REGU, UA, UAMICAO #### [address] [address] UA Urobilinogen 0.2 E.U./dL Normal 0.2-1.0 [facility] ([place]) Comment on above: Performed By: #### P REGU, UA, UAMICAO #### [address] [address] Urobilinogen (U) [Mass/Vol] Negative Normal Negative [facility] ([place]) Comment on above: Performed By: #### P REGU, UA, UAMICAO #### [place] [address] OVAPon 04-04-2021 Ova & Parasite exam See Results Below Normal [facility] ([place]) Comment on above: Result Comment: Spec imen Desc: Stool Sp. Request/Comment: Specimen received in Ova and Parasite Kit. Culture Result No parasites seen. Report Status FINAL 04/04/2021 Performed By: [facility] [address] [place] [address] Hop Picker: Kleber Gutierrez III#: [id number] Phone#: Performed By: #### O VAP #### [address] [address] .Auto Diffon 03-25-2021 Basophil, Absolute 0.10 10 3/mcL Normal 0.00-0.19 [facility] ([place]) Comment on above: Performed By: #### C BC, ADIFF, ANEU, LIP, CMP #### [address] [address] Basophils/100 WBC (Bld) 0.8 % Normal 0.0-2.5 A [facility] ([place]) Comment on above: Performed By: #### C BC, ADIFF, ANEU, LIP, CMP #### [address] [address] Eosinophil, Absolute 0.60 10 3/mcL High 0.00-0.40 A [facility] ([place]) Comment on above: Performed By: #### C BC, ADIFF, ANEU, LIP, CMP #### [address] [address] Eosinophils/100 WBC (Bld) 6.3 % Normal 0.0-7.0 [facility] ([place]) Comment on above: Performed By: #### C BC, ADIFF, ANEU, LIP, CMP #### [address] [address] Lymphocyte, Absolute 2.40 10 3/mcL Normal 0.77-3.85 A [facility] ([place]) Comment on above: Performed By: #### C BC, ADIFF, ANEU, LIP, CMP #### [address] [address] Lymphocytes/100 WBC (Bld) 26.5 % Normal 10.0-50.0 [facility] ([place]) Comment on above: Performed By: #### C BC, ADIFF, ANEU, LIP, CMP #### [place] [address] Monocyte, Absolute 0.80 10 3/mcL Normal 0.15-1.00 [facility] ([place]) Comment on above: Performed By: #### C BC, ADIFF, ANEU, LIP, CMP #### [place] [address] Monocytes/100 WBC (Bld) 8.7 % Normal 1.7-13.0 A [facility] ([place]) Comment on above: Performed By: #### C BC, ADIFF, ANEU, LIP, CMP #### [place] [address] Neutrophils/100 WBC (Bld) 57.7 % Normal 37.0-80.0 [facility] ([place]) Comment on above: Performed By: #### C BC, ADIFF, ANEU, LIP, CMP #### [place] [address] .NEUABSon 03-25-2021 Neutrophil, Absolute 5.20 10 3/mcL Normal 2.85-6.16 A [facility] ([place]) Comment on above: Performed By: #### C BC, ADIFF, ANEU, LIP, CMP #### [place] [address] .Urinalysis Microscopic (AO) on 03-25-2021 UA Amorphus 1+ /hpf Normal [facility] ([place]) Comment on above: Performed By: #### P REGU, UA, UAMICAO #### [place] [address] UA Bacteria 2+ /hpf Abnormal [facility] ([place]) Comment on above: Performed By: #### P REGU, UA, UAMICAO #### [place] [address] UA RBC 0-5 Abnormal None Seen [facility] ([place]) Comment on above: Performed By: #### P REGU, UA, UAMICAO #### [address] [address] UA Squam Epithelial LOADED Abnormal None Seen [facility] ([place]) Comment on above: Performed By: #### P REGU, UA, UAMICAO #### [address] [address] UA WBC 5-10 Abnormal None Seen [facility] ([place]) Comment on above: Performed By: #### P REGU, UA, UAMICAO #### [address] [address] CBCon 03-25-2021 Erythrocyte distribution width (RBC) [Ratio] 12.9 % Normal 11.5-14.5 [facility] ([place]) Comment on above: Performed By: #### C BC, ADIFF, ANEU, LIP, CMP #### [place] [address] Hematocrit (Bld) [Volume fraction] 43.6 % Normal 37.0-47.0 [facility] ([place]) Comment on above: Performed By: #### C BC, ADIFF, ANEU, LIP, CMP #### [place] [address] Hgb 14.9 G/dL Normal 12.0-16.0 [facility] ([place]) Comment on above: Performed By: #### C BC, ADIFF, ANEU, LIP, CMP #### [place] [address] MCH (RBC) [Entitic mass] 30.7 pg Normal 27.0-31.2 [facility] ([place]) Comment on above: Performed By: #### C BC, ADIFF, ANEU, LIP, CMP #### [place] [address] MCHC 34.3 G/dL Normal 33.0-37.0 [facility] ([place]) Comment on above: Performed By: #### C BC, ADIFF, ANEU, LIP, CMP #### [place] [address] MCV (RBC) [Entitic vol] 89.5 fL Normal 80.0-94.0 A [facility] ([place]) Comment on above: Performed By: #### C BC, ADIFF, ANEU, LIP, CMP #### [address] [address] Platelet 301 10 3/mcL Normal 130-400 [facility] ([place]) Comment on above: Performed By: #### C BC, ADIFF, ANEU, LIP, CMP #### [address] [address] Platelet mean volume (Bld) [Entitic vol] 8.0 fL Normal 7.4-10.4 [facility] ([place]) Comment on above: Performed By: #### C BC, ADIFF, ANEU, LIP, CMP #### [address] [address] RBC 4.87 10 6/mcL Normal 4.20-5.40 [facility] ([place]) Comment on above: Performed By: #### C BC, ADIFF, ANEU, LIP, CMP #### [address] [address] WBC 9.00 10 3/mcL Normal 4.60-10.80 [facility] ([place]) Comment on above: Performed By: #### C BC, ADIFF, ANEU, LIP, CMP #### [address] [address] CMPon 03-25-2021 Albumin Level 4.3 G/dL Normal 3.5-5.0 [facility] ([place]) Comment on above: Performed By: #### C BC, ADIFF, ANEU, LIP, CMP #### [address] [address] Albumin/Globulin [Mass ratio] 1.3 {ratio} Normal 1.1-2.5 [facility] ([place]) Comment on above: Performed By: #### C BC, ADIFF, ANEU, LIP, CMP #### [address] [address] ALP [Catalytic activity/Vol] 105 U/L Low 135-450 [facility] ([place]) Comment on above: Performed By: #### C BC, ADIFF, ANEU, LIP, CMP #### [address] [address] ALT [Catalytic activity/Vol] 17 U/L Normal 14-59 [facility] ([place]) Comment on above: Performed By: #### C BC, ADIFF, ANEU, LIP, CMP #### [address] [address] AST [Catalytic activity/Vol] 9 U/L Low 10-40 [facility] ([place]) Comment on above: Performed By: #### C BC, ADIFF, ANEU, LIP, CMP #### [address] [address] Bili Total 0.4 mg/dL Normal 0.2-1.0 [facility] ([place]) Comment on above: Result Comment: Use of this assay is not recommended for patients undergoing treatment with eltrombopag due to the potential for falsely elevated results. Performed By: #### C BC, ADIFF, ANEU, LIP, CMP #### [address] [address] BUN/Creatinine Ratio 10 ratio Normal 7-27 [facility] ([place]) Comment on above: Performed By: #### C BC, ADIFF, ANEU, LIP, CMP #### [address] [address] Calcium [Mass/Vol] 8.8 mg/dL Normal 8.4-10.2 [facility] ([place]) Comment on above: Performed By: #### C BC, ADIFF, ANEU, LIP, CMP #### [address] [address] Chloride [Moles/Vol] 105 mmol/L Normal 98-107 [facility] ([place]) Comment on above: Performed By: #### C BC, ADIFF, ANEU, LIP, CMP #### [address] [address] CO2 [Moles/Vol] 25 mmol/L Normal 22-29 [facility] ([place]) Comment on above: Performed By: #### C BC, ADIFF, ANEU, LIP, CMP #### [address] [address] Creatinine [Mass/Vol] 1.01 mg/dL Normal 0.55-1.02 [facility] ([place]) Comment on above: Performed By: #### C BC, ADIFF, ANEU, LIP, CMP #### [address] [address] Electrolyte Balance 12.0 mEq/L Normal [facility] ([place]) Comment on above: Performed By: #### C BC, ADIFF, ANEU, LIP, CMP #### [address] [address] Globulin 3.3 G/dL Normal [facility] ([place]) Comment on above: Performed By: #### C BC, ADIFF, ANEU, LIP, CMP #### [place] [id number] Glucose [Mass/Vol] 100 mg/dL Normal 70-105 [facility] ([place]) Comment on above: Performed By: #### C BC, ADIFF, ANEU, LIP, CMP #### [address] [address] Potassium [Moles/Vol] 3.4 mmol/L Low 3.5-5.1 [facility] ([place]) Comment on above: Performed By: #### C BC, ADIFF, ANEU, LIP, CMP #### [address] [address] Sodium [Moles/Vol] 142 mmol/L Normal 136-145 [facility] ([place]) Comment on above: Performed By: #### C BC, ADIFF, ANEU, LIP, CMP #### [address] [address] Total Protein 7.6 G/dL Normal 6.4-8.2 [facility] ([place]) Comment on above: Performed By: #### C BC, ADIFF, ANEU, LIP, CMP #### [address] [place] [address] Urea nitrogen [Mass/Vol] 10 mg/dL Normal 7-18 [facility] ([place]) Comment on above: Performed By: #### C BC, ADIFF, ANEU, LIP, CMP #### [address] [address] LIPon 03-25-2021 Lipase Level 92 U/L Normal 73-393 [facility] ([place]) Comment on above: Performed By: #### C BC, ADIFF, ANEU, LIP, CMP #### [address] [address] PREGUon 03-25-2021 HCG ( test) Ql (U) Negative Normal [facility] ([place]) Comment on above: Performed By: #### P REGU, UA, UAMICAO #### [address] [address] test (u) int Not detected Invalid Interpretation Code [facility] ([place]) Comment on above: Performed By: #### P REGU, UA, UAMICAO #### [address] [address] UAon 03-25-2021 Color (U) Yellow Normal [facility] ([place]) Comment on above: Performed By: #### P REGU, UA, UAMICAO #### [address] [address] Glucose (U) [Mass/Vol] Negative Normal Negative [facility] ([place]) Comment on above: Performed By: #### P REGU, UA, UAMICAO #### [address] [address] Ketones Ql (U) Negative Normal Negative [facility] ([place]) Comment on above: Performed By: #### P REGU, UA, UAMICAO #### [address] [address] UA Appear Clear Normal Clear [facility] ([place]) Comment on above: Performed By: #### P REGU, UA, UAMICAO #### [place] [address] UA Blood Negative Normal Negative [facility] ([place]) Comment on above: Performed By: #### P REGU, UA, UAMICAO #### [address] [address] UA Leuk Est Small Abnormal Negative [facility] ([place]) Comment on above: Performed By: #### P REGU, UA, UAMICAO #### [place] [address] UA Nitrite Negative Normal Negative [facility] ([place]) Comment on above: Performed By: #### P REGU, UA, UAMICAO #### [place] [address] UA pH 8.5 Abnormal 5.0 - 8.0 [facility] ([place]) Comment on above: Performed By: #### P REGU, UA, UAMICAO #### [place] [address] UA Protein Negative Normal Negative [facility] ([place]) Comment on above: Performed By: #### P REGU, UA, UAMICAO #### [place] [address] UA Spec Grav 1.020 Normal 1.015-1.025 [facility] ([place]) Comment on above: Performed By: #### P REGU, UA, UAMICAO #### [place] [address] UA Specimen Type Clean Catch Normal [facility] ([place]) Comment on above: Performed By: #### P REGU, UA, UAMICAO #### [address] [address] UA Urobilinogen 1.0 E.U./dL Normal 0.2-1.0 [facility] ([place]) Comment on above: Performed By: #### P REGU, UA, UAMICAO #### [place] [address] Urobilinogen (U) [Mass/Vol] Negative Normal Negative [facility] ([place]) Comment on above: Performed By: #### P REGU, UA, UAMICAO #### [place] [address] [place], [place] [address] Influenza virus A and B and SARS-CoV-2 (COVID-19) Ag panel - Upper respiratory specim SARS-CoV-2 & FLU Antigen (Rapid) Influenzae B [facility] Work Phone: Vital Signs Date Time Vital Sign Value Performing Clinician Facility 04-08-2025 08:43-0400 Body height 144.[address] Leidy De Paz DO Work Phone: 1(870)[phone] [place] [address] 04-08-2025 08:37-0400 Body mass index (BMI) [Ratio] 26.2 kg/m2 Dr. Leidy De Paz DO Work Phone: 6(401)[phone] [place] [address] 04-08-2025 08:37-0400 Body weight 54.[address] Leidy De Paz DO Work Phone: 6(249)134-735965 [place] [address] 04-08-2025 08:37-0400 Diastolic blood pressure 73 mm[Hg] Dr. Leidy De Paz DO Work Phone: 2(884)246-626065 [place] [address] 04-08-2025 08:37-0400 Systolic blood pressure 108 mm[Hg] Dr. Leidy De Paz DO Work Phone: 9(109)[phone] [place] [address] 01-07-2025 08:11-0500 Body mass index (BMI) [Ratio] 26.4 kg/m2 Dr. Leidy De Paz DO Work Phone: 8(443)[phone] [place] [address] 01-07-2025 08:11-0500 Body weight 55.[address] Leidy De Paz DO Work Phone: 3(989)975-959965 [place] [address] 01-07-2025 08:11-0500 Diastolic blood pressure 68 mm[Hg] Dr. Leidy De Paz DO Work Phone: 8(250)[phone] [place] [address] 01-07-2025 08:11-0500 Systolic blood pressure 101 mm[Hg] Dr. Leidy De Paz DO Work Phone: [facility] 03-18-2023 13:44-0400 Body mass index (BMI) [Percentile] Per age and sex 80.2 % Dr. Leidy De Paz Work Phone: [facility] 03-18-2023 13:44-0400 Body mass index (BMI) [Ratio] 25.3 kg/m2 Dr. Leidy De Paz Work Phone: [facility] 03-18-2023 13:44-0400 Body weight 53.[address] Leidy De Paz Work Phone: [facility] 03-18-2023 13:44-0400 Diastolic blood pressure 78 mm[Hg] Dr. Leidy De Paz Work Phone: [facility] 03-18-2023 13:44-0400 Systolic blood pressure 120 mm[Hg] Dr. Leidy De Paz Work Phone: [facility] 11-25-2022 03:59-0500 Heart rate 86 /min [facility] 11-25-2022 03:59-0500 Respiratory rate 16 /min [facility] 11-25-2022 03:59-0500 SaO2% (BldA) [Mass fraction] 99 % [facility] 11-25-2022 00:12-0500 Body height 144.78 cm [facility] Work Phone: 11-25-2022 00:12-0500 Body mass index (BMI) [Percentile] Per age and sex 78.1 % [facility] 11-25-2022 00:12-0500 Body mass index (BMI) [Ratio] 24.8 kg/m2 [facility] 11-25-2022 00:12-0500 Body temperature 99.2 [degF] [facility] 11-25-2022 00:12-0500 Body weight 52.16 kg [facility] 11-25-2022 00:12-0500 Diastolic blood pressure 87 mm[Hg] [facility] 11-25-2022 00:12-0500 Systolic blood pressure 110 mm[Hg] [facility] 09-21-2022 14:47-0400 Body height 144.78 cm [facility] Work Phone: 09-21-2022 14:47-0400 Body mass index (BMI) [Percentile] Per age and sex 83.3 % [facility] Work Phone: 09-21-2022 14:47-0400 Body mass index (BMI) [Ratio] 25.8 kg/m2 [facility] Work Phone: 09-21-2022 14:47-0400 Body temperature 97.2 [degF] [facility] Work Phone: 09-21-2022 14:47-0400 Body weight 54.1 kg [facility] Work Phone: 09-21-2022 14:47-0400 Diastolic blood pressure 83 mm[Hg] [facility] Work Phone: 09-21-2022 14:47-0400 Heart rate 92 /min [facility] Work Phone: 09-21-2022 14:47-0400 Respiratory rate 14 /min [facility] Work Phone: 09-21-2022 14:47-0400 SaO2% (BldA) [Mass fraction] 100 % [facility] Work Phone: 09-21-2022 14:47-0400 Systolic blood pressure 120 mm[Hg] [facility] Work Phone: 04-26-2022 15:07-0400 Diastolic blood pressure 80 mm[Hg] Ladarius Gutierrez MD Work Phone: [facility] 04-26-2022 15:07-0400 Heart rate 70 /min Ladarius Gutierrez MD Work Phone: [facility] 04-26-2022 15:07-0400 Respiratory rate 16 /min Ladarius Gutierrez MD Work Phone: [facility] 04-26-2022 15:07-0400 SaO2% (BldA) [Mass fraction] 98 % Ladarius Gutierrez MD Work Phone: [facility] 04-26-2022 15:07-0400 Systolic blood pressure 110 mm[Hg] Ladarius Gutierrez MD Work Phone: [facility] 04-26-2022 14:09-0400 Body temperature 97.3 [degF] Ladarius Gutierrez MD Work Phone: [facility] 04-26-2022 13:21-0400 Body height 147.3 cm Ladarius Gutierrez MD Work Phone: [facility] 04-26-2022 13:21-0400 Body mass index (BMI) [Percentile] Per age and sex 63.98 % Ladarius Gutierrez MD Work Phone: [facility] 04-26-2022 13:21-0400 Body weight 49.44 kg Ldaarius Gutierrez MD Work Phone: [facility] 04-13-2022 13:20-0400 Body height 146.1 cm Liliya Jared PA-C Work Phone: [facility] 04-13-2022 13:20-0400 Body mass index (BMI) [Percentile] Per age and sex 74.14 % Liliya Jared PA-C Work Phone: [facility] 04-13-2022 13:20-0400 Body weight 51.17 kg Liliya Jared PA-C Work Phone: [facility] 04-13-2022 13:20-0400 Diastolic blood pressure 70 mm[Hg] Liliya Jared PA-C Work Phone: [facility] 04-13-2022 13:20-0400 Heart rate 94 /min Liliya Jared PA-C Work Phone: [facility] 04-13-2022 13:20-0400 Systolic blood pressure 108 mm[Hg] Liliya Jared PA-C Work Phone: [facility] 02-25-2022 14:08-0400 Body height 144.78 cm [facility] Work Phone: 02-25-2022 14:08-0400 Body mass index (BMI) [Ratio] 24.3 kg/m2 [facility] Work Phone: 02-25-2022 14:08-0400 Body temperature 97.3 [degF] [facility] Work Phone: 02-25-2022 14:08-0400 Body weight 51 kg [facility] Work Phone: 02-25-2022 14:08-0400 Diastolic blood pressure 72 mm[Hg] [facility] Work Phone: 02-25-2022 14:08-0400 Heart rate 86 /min [facility] Work Phone: 02-25-2022 14:08-0400 Respiratory rate 14 /min [facility] Work Phone: 02-25-2022 14:08-0400 SaO2% (BldA) [Mass fraction] 99 % [facility] Work Phone: 02-25-2022 14:08-0400 Systolic blood pressure 101 mm[Hg] [facility] Work Phone: 01-26-2022 00:15-0500 Diastolic blood pressure 77 mm[Hg] CARLYN MOSQUEDA MD [facility] 01-26-2022 00:15-0500 Heart rate 96 /min CARLYN MOSQUEDA MD [facility] 01-26-2022 00:15-0500 Respiratory rate 19 /min CARLYN MOSQUEDA MD [facility] 01-26-2022 00:15-0500 Systolic blood pressure 111 mm[Hg] CARLYN MOSQUEDA MD [facility] 01-25-2022 23:30-0500 Diastolic blood pressure 84 mm[Hg] CARLYN MOSQUEDA MD [facility] 01-25-2022 23:30-0500 Heart rate 88 /min CARLYN MOSQUEDA MD [facility] 01-25-2022 23:30-0500 Respiratory rate 16 /min CARLYN MOSQUEDA MD [facility] 01-25-2022 23:30-0500 Systolic blood pressure 110 mm[Hg] CARLYN MOSQUEDA MD [facility] 01-25-2022 22:45-0500 Body height 144.8 cm CARLYN MOSQUEDA MD [facility] 01-25-2022 22:45-0500 Body temperature 98.24 [degF] CARLYN MOSQUEDA MD [facility] 01-25-2022 22:45-0500 Body weight 50 kg CARLYN MOSQUEDA MD [facility] 01-25-2022 22:45-0500 Diastolic blood pressure 83 mm[Hg] CARLYN MOSQUEDA MD [facility] 01-25-2022 22:45-0500 Heart rate 98 /min CARLYN MOSQUEDA MD [facility] 01-25-2022 22:45-0500 Respiratory rate 26 /min CARLYN MOSQUEDA MD [facility] 01-25-2022 22:45-0500 Systolic blood pressure 114 mm[Hg] CARLYN MOSQUEDA MD [facility] 01-13-2022 18:51-0500 Body temperature 98.06 [degF] EWELINA CANDELARIA MD [facility] 01-13-2022 18:51-0500 Diastolic blood pressure 80 mm[Hg] EWELINA CANDELARIA MD [facility] 01-13-2022 18:51-0500 Heart rate 87 /min EWELINA CANDELARIA MD [facility] 01-13-2022 18:51-0500 Respiratory rate 18 /min EWELINA CANDELARIA MD [facility] 01-13-2022 18:51-0500 Systolic blood pressure 116 mm[Hg] EWELINA CANDELARIA MD [facility] 12-16-2021 14:48-0500 Body temperature 97.88 [degF] EWELINA CANDELARIA MD [facility] 12-16-2021 14:48-0500 Diastolic blood pressure 89 mm[Hg] EWELINA CANDELARIA MD [facility] 12-16-2021 14:48-0500 Heart rate 95 /min EWELINA CANDELARIA MD [facility] 12-16-2021 14:48-0500 Respiratory rate 20 /min EWELINA CANDELARIA MD [facility] 12-16-2021 14:48-0500 Systolic blood pressure 134 mm[Hg] EWELINA CANDELARIA MD [facility] 10-19-2021 14:53-0500 Body height 147.3 cm NAMITA CRUZKA DO [facility] 10-19-2021 14:53-0500 Body temperature 97.88 [degF] NAMITA DURESKA DO [facility] 10-19-2021 14:53-0500 Body weight 52.9 kg NAMIAT DURESKA DO [facility] 10-19-2021 14:53-0500 Diastolic blood pressure 69 mm[Hg] NAMITA DURESKA DO [facility] 10-19-2021 14:53-0500 Heart rate 95 /min NAMITA DURESKA DO [facility] 10-19-2021 14:53-0500 Respiratory rate 16 /min NAMITA DURESKA DO [facility] 10-19-2021 14:53-0500 Systolic blood pressure 115 mm[Hg] NAMITA DURESKA DO [facility] Encounters Encounter Date Encounter Type Care Provider Facility Start: 09-14-2025 End: 09-14-2025 ambulatory Leidy De Paz Facility:[facility] Start: 09-14-2025 End: 09-14-2025 ambulatory Leatha Bassett NP Facility:[facility] Start: 05-27-2025 ambulatory Leidy De Paz Facility :[facility] Start: 04-08-2025 End: 04-08-2025 Patient encounter procedure [facility] Work Phone: Start: 04-08-2025 End: 04-08-[address] Leidy De Paz DO Work Phone: [facility] Work Phone: Start: 04-08-2025 End: 04-08-2025 ambulatory Carmen Stack Facility:[facility] Start: 01-07-2025 End: 01-07-2025 Patient encounter procedure [facility] Work Phone: Start: 01-07-2025 End: 01-07-2025 ambulatory Leidy De Paz Facility:[facility] Start: 11-26-2024 End: 11-26-2024 ambulatory Carmen Stack Facility:[facility] Start: 11-26-2024 End: 11-26-2024 ambulatory Carmen Stack Facility:[facility] Start: 03-18-2023 End: 03-18-[address] Leidy De Paz Work Phone: [facility] Work Phone: Start: 03-18-2023 End: 03-18-[address] Leidy De Paz Work Phone: [facility]Laboratory, Specimen Start: 03-18-2023 End: 03-18-[address] Leidy De Paz Work Phone: [facility] Start: 01-11-2023 ambulatory NOMAN FOUNTAIN [facility] Start: 11-25-2022 End: 11-25-2022 Emergency department patient visit [facility] Start: 10-25-2022 End: 10-25-2022 ambulatory TYLER MCCARTNEY [facility] Start: 09-21-2022 End: 09-21-2022 Emergency department patient visit [facility] Start: 08-06-2022 ambulatory LEIDY BURDENKELLY [facility] Start: 04-26-2022 ambulatory Liliya wheeler PA-C [facility] Comment on above: nauseous Start: 04-26-2022 End: 04-26-2022 Subsequent hospital visit by physician Ladarius Gutierrez MD Work Phone: Ambulatory Surgery Comment on above: Chronic idiopathic c onstipation [K59.04] Start: 04-19-2022 ambulatory Ladarius Gutierrez MD Work Phone: [facility] Surgery Start: 04-17-2022 End: 04-17-2022 ambulatory LEIDY DE PAZ [facility] Start: 04-13-2022 End: 04-13-2022 Patient encounter procedure Liliya Coleman PA-C Work Phone: [facility] Comment on above: Chronic idiopathic c onstipation (Primary Dx); Generalized abdominal pain; Other fatigue; Heartburn; Nausea Start: 03-02-2022 End: 03-02-2022 ambulatory LEIDY BURDENKELLY [facility] Start: 02-26-2022 End: 02-26-2022 Emergency department patient visit LEIDY Elisabeth [facility] Start: 02-25-2022 End: 02-25-2022 Emergency department patient visit [facility] Start: 02-22-2022 End: 02-22-2022 ambulatory JAYLIN NOGUERA [facility] Start: 02-01-2022 End: 02-01-2022 ambulatory ZIA KEMP [facility] Start: 01-29-2022 End: 01-29-2022 ambulatory SELF REFERRED [facility] Start: 01-25-2022 End: 01-26-2022 Emergency department patient visit CARLYN MOSQUEDA MD [facility] Start: 01-22-2022 End: 01-22-2022 Emergency department patient visit JULIAN GILLIAM [facility] Start: 01-22-2022 End: 01-22-2022 ambulatory SELF REFERRED [facility] Start: 01-13-2022 End: 01-13-2022 Emergency department patient visit EWELINA CANDELARIA MD [facility] Start: 12-16-2021 End: 12-16-2021 Emergency department patient visit EWELINA CANDELARIA MD [facility] Start: 10-19-2021 End: 10-19-2021 Emergency department patient visit NAMITA BARBOZA DO [facility] Procedures Date Procedure Procedure Detail Performing Clinician Start: 04-08-[address] Leidy De Paz DO Work Phone: Start: 04-08-2025 End: 04-08-[address] Leidy wagner DO Work Phone: Start: 04-08-2025 Iadna hepatitis c quant & reverse guard manager Dr. Leidy De aPz DO Work Phone: Comment on above: Test not performed Start: 04-08-2025 Serologic test for herpes simplex Dr. Kimberly De Paz DO Work Phone: Comment on above: Please note reference interval change* *HSV-1 IgG testing performed using the [employer] HSV-1IgG assay. Start: 04-08-2025 Serologic test for syphilis Dr. Leidy freeman DO Work Phone: Start: 11-25-2022 Plain chest X-ray Start: 04-26-2022 Esophagogastroduodenoscopy transoral diagnostic Liliya Coleman PA-C Work Phone: Start: 04-26-2022 Colonoscopy flx dx w/collj spec when pfrmd Liliya Jared PA-C Work Phone: Start: 02-26-2022 Blood count hemoglobin JULIAN GILLIAM Comment on above: Order Comment: Release to patient->Autom atic [id number]&Urine Performed By: #### U ACOM #### [address] [address] Start: 01-22-2022 Blood count hemoglobin JULIAN GILLIAM Comment on above: Order Comment: Release to patient->Autom atic [id number]&Blood Performed By: #### M G #### [address] [address] None (qualifier value) NAMITA BARBOZA DO SARS-CoV-2 & FLU Antigen (Rapid) SARS-CoV-2 & FLU Antigen (Rapid) Dr. Leidy De Paz Work Phone: Urine culture Dr. Leidy santana Work Phone: Plan of Treatment Date Care Activity Detail Author Start: 11-25-2022 [facility] Work Phone: Start: 07-19-2022 Influenza vaccination INFLUENZ A (Season Ended) [facility] Start: 04-13-2022 End: 06-13-2022 CELIAC SCREEN WITH REFLEX CELIAC SCREEN WITH REFLEX Lab Routine Chronic idiopathic constipation Other fatigue Generalized abdominal pain Expected: 04/13/2022, Expires: 06/13/2022 [facility] Work Phone: Comment on above: Expected: 04/13/2022 , Expires: 06/13/2022 Start: 2021 CHLAMYDIA SCREENING (18-24) CHLAMYDIA SCREENING (18-24) [facility] Start: 2021 GC (GONORRHEA) SCREE ROSETTE (18-24) GC (GONORRHEA) SCREENING (18-24) [facility] Start: 2021 HEPATITIS C SCREENING HEPATITIS C SC ISAAC [facility] Start: 2021 HIV SCREENING HIV SCREENING [facility] Start: 2019 MENINGOCOCCAL CONJUG ATE (1 - 2-dose series) MENINGOCOCCAL CONJUGATE (1 - 2-dose series) [facility] Start: 2017 PEDS TO ADULT TRANSI TION ANNUAL ASSESSMENT PEDS TO ADULT TRANSITION ANNUAL ASSESSMENT [facility] Start: 2015 Adult depression screening assessment DEPRESSION SCREENING [facility] Start: 2015 PEDS TO ADULT TRANSI TION INITIAL DISCUSSION PEDS TO ADULT TRANSITION INITIAL DISCUSSION [facility] Start: 2014 HPV VACCINE (1 - 2-d ose series) HPV VACCINE (1 - 2-dose series) [facility] Start: 2013 MENINGOCOCCAL B: Consider based on risk (1 of 2 - Risk Bexsero 2-dose series) MENINGOCOCCAL B: Consider based on risk (1 of 2 - Risk Bexsero 2-dose series) [facility] Start: 2010 Urine microalbumin profile DTAP,TDAP,TD (1 - Tdap) [facility] Start: 2008 COVID-19 VACCINE (#1) COVID-19 VACCI NE (#1) [facility] End: 04-30-2023 ADULT [place] [facility]ORECTAL [facility]OR[facility] Endoscopy Routine Chronic idiopathic constipation 1 Occurrences starting 04/30/2022 until 04/30/2023 [facility] Work Phone: Comment on above: 1 Occurrences starti ng 04/30/2022 until 04/30/2023 Bacteria identified in Urine by Culture Urine Culture [facility] Work Phone: End: 04-13-2023 COLONOSCOPY DIAGNOSTIC COLONOSCOPY DIAGNOSTIC Endoscopy Routine Chronic idiopathic constipation Generalized abdominal pain 1 Occurrences starting 04/13/2022 until 04/13/2023 [facility] Work Phone: Comment on above: 1 Occurrences starti ng 04/13/2022 until 04/13/2023 End: 04-13-2023 EGD DIAGNOSTIC EGD DIAGNOSTIC Endoscopy Routine Generalized abdominal pain Heartburn Nausea 1 Occurrences starting 04/13/2022 until 04/13/2023 [facility] Work Phone: Comment on above: 1 Occurrences starti ng 04/13/2022 until 04/13/2023 Patient Education [facility] Work Phone[facility] Work [facility]: SURGICAL PATHOLOGY [facility] Work Phone: Comment on above: Release Upon Cherelle paez for 1 Occurrences starting 04/26/2022, 1 completed [facility] Payers Date Payer Category Payer Private Health Insurance [id number] 2024 Self-pay [id number] 2021 Medicaid [employer] [id number] 2021-Present [phone] [address] [place] [address] Medicaid [id number] 2003 Unknown [id number] 2003 Unknown [id number] 2003 Unknown [id number] 47 2003 Unknown [id number] 47 2003 Unknown [id number] 2003 Unknown [id number] 47 2003 Unknown [id number] 479 2003 Unknown [id number] 47 2003 Unknown [id number] 479 2003 Unknown [id number] 479 2003 Unknown [id number] Medicaid [id number] Unknown SELF PAY INSURANCE [id number] 01 [id number] Unknown [id number] Unknown [id number] Unknown [id number] Unknown [id number] 462 Unknown [id number] 462 Unknown [id number] 462 Unknown [id number] 462 Unknown [id number] 462 Unknown [id number] 462 Social History Date Type Detail Facility Start: 10-06-2019 End: 04-30-2024 Never smoked tobacco (finding) [facility] Sex Assigned At [facility] Start: 02-25-2022 End: 03-18-2023 Tobacco smoking status NHIS Unknown if ever smoked [facility] Start: 09-13-2019 With Family Helga Co [facility] Start: 2003 Sex Assigned At Female W [facility] Start: 09-18-2016 Tobacco use and exposure Smokeless tobacco non-user [facility] Work Phone: Start: 04-13-2022 End: 04-26-2022 Alcohol intake Lifetime non-drinker (finding) [facility] Start: 04-13-2022 History SDOH Alcohol Frequency 1 [facility] Start: 2005 Sex Assigned At Not on file [facility] Start: 04-03-2022 End: 04-26-2022 Exposure to SARS-CoV-2 (event) Not sure [facility] NEGATED: Highlighted row [facility] Mental Status Date Assessment Result Facility 11-25-2022 Cognitive function Level Of Cons ciousness Awake;Alert;Appropriate;Follow s Commands [facility] Work Phone: 09-21-2022 Cognitive function Level Of Cons ciousness Awake;Alert;Appropriate;Follow s Commands [facility] Work Phone: Clinical Notes 10-19-2021 to 01-07-2025 Note Date & Type Note Facility 01-07-2025 Evaluation note Diagnosis Onset Date Resolution Menorrhagia with regular cycle acute January 07, 025 8:08am Menorrhagia with regular cycle acute April 08, 2025 8 :35am Possible exposure to STI acute April 08, 2025 8 :35am Vaginal itching acute April 08, 2025 8:35am [facility] Work Phone: [phone] 158-999806-13-2022 Miscellaneous Notes* Telephone Encounter - Liliya Coleman PA-C - 04/30/2022 7:17 AM EDT Is there any update on Linzess 290 mcg with her insurance? Also, anal manometry is ordered if we can set this up for her! Thank you! documented in this [facility] NoteHNO ID: [id number] Author: Rosanne Haney RN Service: ? Author Type: Registered Nurse Type: Nursing Progress Note Filed: 04/26/2022 3:09 PM Note Text: Hob up. Passing air. States ready to go. assisted pt w/dressing. All belongings given. Director Of Primary to get car.[facility]06-09-2022 NoteHNO ID: [id number] Author: Rosanne Haney RN Service: ? Author Type: Registered Nurse Type: Nursing Progress Note Filed: 04/26/2022 2:29 PM Note Text: Dr was at the bedside. No questions.[facility]06-09-2022 NoteHNO ID: [id number] Author: Rosanne Haney RN Service: ? Author Type: Registered Nurse Type: Nursing Progress Note Filed: 04/26/2022 2:21 PM Note Text: Mom at the bedside. Encouraged to pass the air.[facility] 04-26-2022 Nurse Note* Rosanne Haney RN - 04/26/2022 3:08 PM EDT Hob up. Passing air. States ready to go. assisted pt w/dressing. All belongings given. Director Of Primary to get car. * Rosanne Haney RN - 04/26/2022 2:[address] was at the bedside. No questions. * Rosanne Haney RN - 04/26/2022 2:21 PM EDT Mom at the bedside. Encouraged to pass the air. documented in this [facility] History and physical note * Ladarius Gutierrez MD - 04/26/2022 1:30 PM EDT HISTORY AND PHYSICAL Orallia Bart Acosta, 16 year old female Current history and physical on file: Yes Is a new History and Physical required for today's visit? No Indication for procedure: Abdominal pain, Constipation and Nausea PROCEDURE(S) SCHEDULED FOR: Colonoscopy with or without biopsies and with or without removal of polyps or lesions, dilation (any means), treatment of bleeding (any means), based on clinical findings. and EGD (Esophagogastroduodenoscopy) with or without biopsies, removal of polyps or lesions, dilation ( any means), treatment of bleeding ( any means), Barrx treatment of Severiano's Esophagus, image tube placement or cryo therapytreatment based on clinical findings. BASELINE BEHAVIOR: Calm BASELINE ORIENTATION: A & O x3 All medications and allergies reviewed: Yes Skin Assessment: Warm dry mucus membranes pink Airway/Respiratory Assessment: Airway: visualization of the uvula- Yes Mouth: opening greater than 2 fingerbreadths- Yes Neck: full range of motion- Yes Breath sounds clear/equal- Yes Cardiac Assessment: Regular rate and rhythm without murmur Abdominal Assessment: Abdomen soft, non-tender, no masses or organomegaly. Sedation Plan: Moderate Additional Comments: None Ladarius Gutierrez MD documented in this encounterC[facility]05-27-[facility]22 NoteHNO ID: [id number] Author: Liliya Coleman PA-C Service: ? Author Type: Physician Hide Paster Type: Progress Notes Filed: 04/13/2022 2:06 PM Note Text: CHIEF COMPLAINT: Patient presents with: Constipation: Abdominal Pain- No appetite CT at [facility]- View CE Summarization 02/25 ER at [place] and Xray 02/26 at [facility] This consult was requested by Self for an opinion regarding constipation, abdominal pain. My final recommendations will be communicated to the requesting health care provider by way of the shared medical record for internal providers or letter via the [employer] for external providers. HPI: Efrain Acosta is a 16 year old female who presents for Constipation (Abdominal Pain- No appetite CT at [facility]- View CE Summarization 02/25 ER at [place] and Xray 02/26 at [facility] ). PMHx of ADD, anxiety, chronic headache Mother is present today. Patient tells me that she has been dealing with bowel issues. Did have a bowel obstruction when she was [age] years old. Tells me she will get randomly very constipated. Unsure of triggers, comes out of the blue. Has tried eating dairy or cutting back fiber to see if this triggers anything. Has been working through new anxiety medications recently unsure if this was a trigger. Eats very healthy. Did have a decreased appetite but this has returned. Drinks a lot of water. Was taking Miralax BID with no relief for weeks. Did a colonoscopy bowel prep with no relief. Had severe abdominal pain after drinking half the prep. At [facility] was given an enema with better relief. Starting have constipation again and saw her PCP. Discussed diet changes but this worsened her symptoms. Tells me today that she is feeling minimal improvement. She is going a week without a BM. Pain is in the LLQ always. She gets bad heartburn and gas every time she eats. Pain can worsen after she moves her bowels. Has woken up due to her abdominal pain. Notes a lot of fatigue. Has vomited twice. Gets very nauseous. No bloody or black stools. Stools have been dark green. No smoking or alcohol. Uncle has a lot of stomach issues. Mom has gastroparesis. Abdominal x-ray 02/26/2022: IMPRESSION: 1. ?Nonobstructive bowel gas pattern. 2. ?Large fecal load. Record Review: [facility] / Outside records reviewed. PAST MEDICAL HISTORY Diagnosis Date - ADD (attention deficit disorder) - Anxiety - Constipation PAST SURGICAL HISTORY Procedure Laterality Date - NONE Allergies: ALLERGIES Allergen Reactions - Benedryl [Diphenhyd* Unknown Paroxsymal effect - Caffeine Vomiting, Other: See Comments Shaking, Nausea - Phenergan [Prometha* Unknown Paroxsymal effect Medications: NAPROXEN SODIUM (ALEVE ORAL) Take by mouth as needed. LAXATIVE, BISACODYL, 5 mg EC tablet TAKE 2 TABLETS (10 MG) BY MOUTH 2 TIMES DAILY FOR 1 DAY FOLLOW THE CLEAN OUT INSTRUCTIONS ondansetron orally disintegrating (ZOFRAN ODT) 4 mg disintegrating tablet Take by mouth. TAKE 1 TABLET BY MOUTH EVERY 8 HOURS NEEDED FOR NAUSEA polyethylene glycol 3350 (MIRALAX, GLYCOLAX) 17 gram/dose powder TAKE 136 G BY MOUTH ONCE FOR 1 DOSE MIX IN 8 OUNCES OF FLUID. medroxyPROGESTERone (DEPO-PROVERA) 150 mg/mL injection Inject 150 mg intramuscularly every 12 weeks. FAMILY HISTORY Problem Relation Age of Onset - Psychiatry Mother anxiety, depression, PTSD - other (gastroparesis) Mother - other (migraines) Mother - Psychiatry Father anxiety and depression - Obesity Father - other (healthy) Sister - COPD Maternal Grandfather - Alcohol/Drug Maternal Grandfather - other (congestive heart failure) Maternal Grandfather - COPD Paternal Grandmother - Hypertension Paternal Grandmother - other (fibromyalgia) Paternal Grandmother - Colon Cancer No Family History - Ulcerative Colitis No Family History - Crohn's Disease No Family History Employer And Job Title: None on file Years Of Education Completed: Not specified Marital Status: Single Social History Tobacco Use - Smoking status: Never Smoker - Smokeless tobacco: Never Used Vaping Use - Vaping Use: Never used Substance Use Topics - Alcohol use: Never - Drug use: Never Review of Systems: Review of Systems Constitutional: Positive for activity change and fatigue. Gastrointestinal: Positive for abdominal pain, constipation and nausea. Gas, Heartburn All other systems reviewed and are negative. Are you taking any blood thinners? No Physical Examination: BP 108/70 Pulse 94 Ht 4' 9.5 (1.46m) Wt 112 lb 12.8 oz (51.2kg) LMP 12/26/2019 BMI 23.97 kg/(m2). Physical Exam Constitutional: Appearance: Normal appearance. She is normal weight. HENT: Head: Normocephalic and atraumatic. Nose: Nose normal. Eyes: General: No scleral icterus. Extraocular Movements: Extraocular movements intact. Conjunctiva/sclera: Conjunctivae normal. Pupils: Pupils are equal, round, and reac (more content not included)... [facility]05-27-2022 Instructions* Patient Instructions* Liliya Coleman PA-C - 04/13/2022 1:50 PM EDT Images from the original note were not included. -- Can take Pepcid up to 40 mg daily for heartburn symptoms Recommend high protein, high fiber diet. Promotion of salivation through oral lozenges/chewing gum Drink plenty of water Avoid NSAIDs (such as Advil, Ibuprofen, Excedrin, Mobic), tobacco, alcohol, carbonated beverages, caffeine, chocolate, tomato based sauces, spicy/fatty foods, and peppermint Avoid eating less than 3 hours before bed. Elevate the head of the bed 6 inches, or invest in a wedge pillow. Laying on left side with head elevated may help alleviate reflux symptoms. Bowel Preparation Instructions for: Miralax-Gatorade Preparations IF YOU DO NOT FOLLOW THESE DIRECTIONS, YOUR COLONOSCOPY WILL BE CANCELLED. [place] Instructions: Your bowel must be empty so that your doctor can clearly view your colon. Follow all of the instructions in this handout EXACTLY as they are written. Do NOT eat any solid food the ENTIRE day before your colonoscopy. Buy your bowel preparation at least 5 days before your colonoscopy. Four (4) Dulcolax laxative tablets containing 5mg of bisacodyl each (NOT Dulcolax stool softener) One (1) 8.3oz. bottle Miralax (238 grams) or generic equivalent 2 x 32oz. Bottles of Gatorade (NOT RED) Diabetic Patients: Use G2 (Gatorade 2) TRANSPORTATION on the Day of Your Exam A responsible adult MUST be present with you at Check In prior to your colonoscopy and REMAIN in the endoscopy area until you are discharged. You are NOT ALLOWED to drive, take a taxi or bus, or leave the Endoscopy Center ALONE. If you do not have a responsible commercial front load driver (family member or friend) withyou to take you home, your exam cannot be done with sedation and will be cancelled. Please bring a list of all of your current medications, including any [id number] medications with you. Medications If you take insulin, diabetic medications or blood thinners such as Coumadin (warfarin), Plavix (clopidogrel), Ticlid (ticlopidine hydrochloride), Agrylin (anagrelide), Xarelto (Rivaroxaban), Pradaxa(Dabigatran), Eliquis (Apixaban), and Effient (Prasugrel). You MUST call the doctors who orders those medicines for instructions on altering the dosage before your colonoscopy. All other medications should be taken the day of the exam with a sip of water including ASPIRIN. Five (5) Days Before Your Colonoscopy Do NOT take medicines that stop diarrhea - such as Imodium, Kaopectate, or Pepto Bismol. Do NOT take fiber supplements - such as Metamucil, Citrucel, or Perdiem. Do NOT take products that contain iron - such as multi-vitamins (the label lists what is in the products). Three (3) Days Before Your Colonoscopy Do NOT eat high-fiber foods - such as popcorn, beans, seeds (flax, sunflower, quinoa), multigrain bread, nuts, salad/vegetables, or fresh and dried fruit. 2 Bowel Preparation Instructions for: Miralax-Gatorade Preparations One (1) Day Before Your Colonoscopy Only drink clear liquids the ENTIRE DAY before your colonoscopy. Do NOT eat any solid foods. Drink at least 8 ounces of clear liquids every hour after waking up. The clear liquids you can drink include: Clear Liquid (NO RED LIQUIDS) DO NOT DRINK Gatorade, Pedialyte or Powerade Clear broth or bouillon Coffee or tea (no milk or non-dairy creamer) Carbonated and non-carbonated soft drinks Kenneth-Aid or other fruit flavored drinks Strained fruit juices (no pulp) Jell-O, popsicles, hard candy Water Alcohol Milk or non-dairy creamers Noodles or vegetables in soup Juice with pulp Liquid you cannot see through Mix 1/2 of Miralax bottle (119 grams) in each 32 ounces of Gatorade bottle until dissolved. Keep cool in the refrigerator. DO NOT ADD ICE. The bowel preparation solution will be consumed in two parts. Part 1 5:00 PM - Evening before your colonoscopy Take 4 Dulcolax tablets. 6 PM - Evening before your colonoscopy Drink 32 oz. of the mixed solution. Drink an 8 oz. glass of bowel preparation every 15 minutes for a total of 4 glasses. Fifteen (15) minutes later, drink an 8 oz. glass of of clear liquids every 15 minutes for a total of 2 glasses. You may continue to drink clear liquids till midnight. Part 2 On the day of your colonoscopy you may drink clear liquids up to (three) 3 hours prior to procedure. 4 1/2 hours before your colonoscopy Take another 32 oz. bottle of mixed solution. Drink an 8 oz. glass of bowel prep every 15 minutes for a total of 4 glasses. Fifteen (15) minutes later, drink an 8 oz. glass of clear liquids every 15 minutes for a total of 2glasses. You may continue to drink clear liquids up to (three) 3 hours before your exam. 3 10/2019 documented in [facility] encounterC[facility] History of Present illness Narrative* Liliya Coleman PA-C - 04/13/2022 1:18 PM EDT CHIEF COMPLAINT: Patient presents with: Constipation: Abdominal Pain- No appetite CT at [facility] [place] [facility] This consult was requested by Self for an opinion regarding constipation, abdominal pain. My final recommendations will be communicated to the requesting health care provider by way of the shared medical record for internal providers or letter via the [employer] for external providers. HPI: Efrain Acosta is a 16 year old female who presents for Constipation (Abdominal Pain- Noappetite CT at [facility]- View CE Summarization 02/25 ER at [place] and Xray 02/26 at [facility] ). PMHx of ADD, anxiety, chronic headache Mother is present today. Patient tells me that she has been dealing with bowel issues. Did have a bowel obstruction when shewas [age] years old. Tells me she will get randomly very constipated. Unsure of triggers, comes outof the blue. Has tried eating dairy or cutting back fiber to see if this triggers anything. Has been working through new anxiety medications recently unsure if this was a trigger. Eats very healthy. Did have a decreased appetite but this has returned. Drinks a lot of water. Was taking Miralax BID with no relief for weeks. Did a colonoscopy bowel prep with no relief. Had severe abdominal pain after drinking half the prep. At [facility] was given an enema with better relief. Starting have co nstipation again and saw her PCP. Discussed diet changes but this worsened her symptoms. Tells me today that she is feeling minimal improvement. She is going a week without a BM. Pain is in the LLQ always. She gets bad heartburn and gas every time she eats. Pain can worsen after she moves her bowels. Has woken up due to her abdominal pain. Notes a lot of fatigue. Has vomited twice. Gets very nauseous. No bloody or black stools. Stools have been dark green. No smoking or alcohol. Uncle has a lot of stomach issues. Mom has gastroparesis. Abdominal x-ray 02/26/2022: IMPRESSION: 1. Nonobstructive bowel gas pattern. 2. Large fecal load. Record Review: [facility] / Outside records reviewed. PAST MEDICAL HISTORY Diagnosis Date ADD (attention deficit disorder) Anxiety Constipation PAST SURGICAL HISTORY Procedure Laterality Date NONE Allergies: ALLERGIES Allergen Reactions Benedryl [Diphenhyd* Unknown Paroxsymal effect Caffeine Vomiting, Other: See Comments Shaking, Nausea Phenergan [Prometha* Unknown Paroxsymal effect Medications: NAPROXEN SODIUM (ALEVE ORAL) Take by mouth as needed. LAXATIVE, BISACODYL, 5 mg EC tablet TAKE 2 TABLETS (10 MG) BY MOUTH 2 TIMES DAILY FOR 1 DAY FOLLOW THE CLEAN OUT INSTRUCTIONS ondansetron orally disintegrating (ZOFRAN ODT) 4 mg disintegrating tablet Take by mouth. TAKE 1 TABLET BY MOUTH EVERY 8 HOURS NEEDED FOR NAUSEA polyethylene glycol 3350 (MIRALAX, GLYCOLAX) 17 gram/dose powder TAKE 136 G BY MOUTH ONCE FOR 1 DOSE MIX IN 8 OUNCES OF FLUID. medroxyPROGESTERone (DEPO-PROVERA) 150 mg/mL injection Inject 150 mg intramuscularly every 12 weeks. FAMILY HISTORY Problem Relation Age of Onset Psychiatry Mother anxiety, depression, PTSD other (gastroparesis) Mother other (migraines) Mother Psychiatry Father anxiety and depression Obesity Father other (healthy) Sister COPD Maternal Grandfather Alcohol/Drug Maternal Grandfather other (congestive heart failure) Maternal Grandfather COPD Paternal Grandmother Hypertension Paternal Grandmother other (fibromyalgia) Paternal Grandmother Colon Cancer No Family History Ulcerative Colitis No Family History Crohn's Disease No Family History Employer And Job Title: None on file Years Of Education Completed: Not specified Marital Status: Single Social History Tobacco Use Smoking status: Never Smoker Smokeless tobacco: Never Used Vaping Use Vaping Use: Never used Substance Use Topics Alcohol use: Never Drug use: Never Review of Systems: Review of Systems Constitutional: Positive for activity change and fatigue. Gastrointestinal: Positive for abdominal pain, constipation and nausea. Gas, Heartburn All other systems reviewed and are negative. Are you taking any blood thinners? No Physical Examination: BP 108/70 Pulse 94 Ht 4' 9.5 (1.46m) Wt 112 lb 12.8 oz (51.2kg) LMP 12/26/2019 BMI 23.97kg/(m^2). Physical Exam Constitutional: Appearance: Normal appearance. She is normal weight. HENT: Head: Normocephalic and atraumatic. Nose: Nose normal. Eyes: General: No scleral icterus. Extraocular Movements: Extraocular movements intact. Conjunctiva/sclera: Conjunctivae normal. Pupils: Pupils are equal, round, and reactive to light. Cardiovascular: Rate and Rhythm: Normal rate and regular rhythm. Pulses: Normal pulses. Heart sounds: Normal heart sounds. Pulmonary: Effort: Pulmonary effort is normal. Breath sounds: Normal breath sounds. Abdominal: General: Abdomen is flat. Palpations: Abdomen is soft. Tenderness: There is abdominal tenderness (lower abdominal pain to palpation). Comments: Hypoactive bowel sounds Musculoskeletal: General: Normal range of motion. Cervical back: Normal range of motion and neck supple. Skin: General: Skin is warm and dry. Coloration: Skin is not jaundiced. Neurological: General: No focal deficit present. Mental Status: She is alert and oriented to person, place, and time. Psychiatric: Mood and Affect: Mood normal. Behavior: Behavior normal. Thought Content: Thought content normal. Judgment: Judgment normal. Assessment/Plan (K59.04) Chronic idiopathic constipation (primary encounter diagnosis) (R10.84) Generalized abdominal pain (R53.83) Other fatigue (R12) Heartburn (R11.0) Nausea 1. Chronic idiopathic constipation -- Patient has been dealing with constipation issues her whole life. Hx of bowel obstruction when she was [age]. -- Has tried Miralax, Stool softeners, enemas, fiber, laxatives with no relief. -- Getting severe abdominal pain, gas and bloating -- Will order Celiac panel -- Colonoscopy for further evaluation -- Will start Linzess 290 mcg daily - polyethylene glycol 3350 (MIRALAX, GLYCOLAX) 17 gram/dose powder; Use as directed for Miralax / Gatorade Bowel Prep Kit Dispense: 238 g; Refill: 0 - Gatorade Sports Drink; Use as directed for Miralax / Gatorade Bowel Prep Kit - Bisacodyl (DULCOLAX) 5 mg tab; Use as directed for Miralax / Gatorade Bowel Prep Kit Dispense: 4 tablet; Refill: 0 - linaCLOtide (LINZESS) 290 mcg capsule; Take 1 capsule by mouth once daily. Dispense: 30 capsule; Refill: 1 - CELIAC SCREEN WITH REFLEX; Future - COLONOSCOPY DIAGNOSTIC; Future 2. Generalized abdominal pain -- Patient is getting significant abdominal pain after eating and with bowel movements. Doubles herover at times. -- Will order Celiac panel -- EGD/Colonoscopy for further evaluation -- Will start Linzess 290 mcg daily - polyethylene glycol 3350 (MIRALAX, GLYCOLAX) 17 gram/dose powder; Use as directed for Miralax / Gatorade Bowel Prep Kit Dispense: 238 g; Refill: 0 - Gatorade Sports Drink; Use as directed for Miralax / Gatorade Bowel Prep Kit - Bisacodyl (DULCOLAX) 5 mg tab; Use as directed for Miralax / Gatorade Bowel Prep Kit Dispense: 4 tablet; Refill: 0 - CELIAC SCREEN WITH REFLEX; Future - COLONOSCOPY DIAGNOSTIC; Future - EGD DIAGNOSTIC; Future 3. Other fatigue -- Will order celiac panel for further evaluation - CELIAC SCREEN WITH REFLEX; Future 4. Heartburn -- Start Pepcid up to 40 mg daily for heartburn symptoms -- EGD r/o esophagitis, gastritis, PUD Recommend high protein, high fiber diet. Promotion of salivation through oral lozenges/chewing gum Drink plenty of water Avoid NSAIDs (such as Advil, Ibuprofen, Excedrin, Mobic), tobacco, alcohol, carbonated beverages, caffeine, chocolate, tomato based sauces, spicy/fatty foods, and peppermint Avoid eating less than 3 hours before bed. Elevate the head of the bed 6 inches, or invest in a wedge pillow. Laying on left side with head elevated may help alleviate reflux symptoms. - EGD DIAGNOSTIC; Future 5. Nausea -- I do suspect there is a component of constipation to her nausea. Hopefully this decreases with agood bowel regimen. Could be acid related as well. -- Start Pepcid up to 40 mg daily for heartburn symptoms -- EGD r/o esophagitis, gastritis, PUD - EGD DIAGNOSTIC; Future Follow up in office PRN. Recommended to please call office/go to ER if fever, chills, chest pain, SOB, diarrhea, nausea, emesis, worsening abdominal pain, dehydration occurs I spent 35 minutes in the visit, with more than 50% of the total [id number] time of the visit in counseling / coordination of care. I have confirmed and edited as necessary, the PFSH and ROS obtained by others. Liliya Coleman PA-C April 13, 2022 1:56 PM documented in this encounterC[facility] Hospital Discharge instructions Patient Education 01/26/2022 00:00:51 Anxiety Reaction Anxiety Reaction Anxiety is the feeling we all get when we think something bad might happen. It is a normal responseto stress and usually causes only a mild reaction. When anxiety becomes more severe, it can interfere with daily life. In some cases, you may not even be aware of what it is you re anxious about. There may also be a genetic link or it may be a learned behavior in the home. Both psychological and physical triggers cause stress reaction. It's often a response to fear or emotional stress, real or imagined. This stress may come from home, family, work, or social relationships. During an anxiety reaction, you may feel: Helpless Nervous Depressed Irritable Your body may show signs of anxiety in many ways. You may experience: Dry mouth Shakiness Dizziness Weakness Trouble breathing Breathing fast (hyperventilating) Chest pressure Sweating Headache Nausea Diarrhea Tiredness Inability to sleep Sexual problems Home care Try to locate the sources of stress in your life. They may not be obvious. These may include: oDaily hassles of life (such as traffic jams, missed appointments, or car troubles) oMajor life changes, both good (new baby or job promotion) and bad (loss of job or loss of loved one) oOverload: feeling that you have too many responsibilities and can't take care of all of them at once oFeeling helpless or feeling that your problems are beyond what you re able to solve Notice how your body reacts to stress. Learn to listen to your body signals. This will help you take action before the stress becomes severe. When you can, do something about the source of your stress. (Avoid hassles, limit the amount of change that happens in your life at one time and take a break when you feel overloaded). Unfortunately, many stressful situations can't be avoided. It is necessary to learn how to better manage stress. There are many proven methods that will reduce your anxiety. These include simple things like exercise, good nutrition, and adequate rest. Also, there are certain techniques that are helpful: oRelaxation oBreathing exercises oVisualization oBiofeedback oMeditation For more information about this, consult your healthcare provider or go to a local bookstore and review the many books and tapes available on this subject. Follow-up care If you feel that your anxiety is not responding to self-help measures, contact your healthcare provider or make an appointment with a counselor. You may need short-term psychological counseling and temporary medicine to help you manage stress. Call 911 Call 911 if any of these happen: Trouble breathing Confusion Drowsiness or trouble wakening Fainting or loss of consciousness Rapid heart rate Seizure New chest pain that becomes more severe, lasts longer, or spreads into your shoulder, arm, neck, jaw, or back When to seek medical advice Call your healthcare provider right away if any of these happen: Your symptoms get worse Severe headache not relieved by rest and mild pain reliever [id number] [employer]. [address] [place] [address]. All rights reserved. This information is not intended as a substitute for professional medical care. Always follow yourhealthcare professional's instructions. Follow Up Care 01/25/2022 22:42:31 With:LEIDY DE PAZ DO Address: [address] [place] [phone] When:2-4 days [facility] 03-01-2022 Note. MICRO - Microbiology PROCEDURE: Urine Culture [*1] SOURCE: Urine, Clean Catch BODY SITE: COLLECTED DATE/TIME: 01/13/2022 18:52 EST RECEIVED DATE/TIME: 01/14/2022 22:27 EST START DATE/TIME: 01/14/2022 22:28 EST FREE TEXT SOURCE: FINAL REPORTS Final Report [] Verified Date/Time/Personnel: 01/16/2022 09:29 EST 10,000 - 50,000 cfu/ml Mixed growth consistent with normal urogenital jayden. PRELIMINARY REPORTS Preliminary Report [] Verified Date/Time/Personnel: 01/15/2022 10:45 EST No growth to date Performing Locations *1: This test was performed at: [facility], [address] [place] [address], [id number] , [facility] ([place])01-13-2022 Hospital Discharge instructions Patient Education 01/13/2022 19:14:49 Bladder Infection, Female (Adult) Bladder Infection, Female (Adult) Urine is normally doesn't have any bacteria in it. But bacteria can get into the urinary tract fromthe skin around the rectum. Or they can travel in the blood from elsewhere in the body. Once they are in your urinary tract, they can cause infection in the urethra (urethritis), the bladder (cystitis), or the kidneys (pyelonephritis). The most common place for an infection is in the bladder. This is called a bladder infection. This is one of the most common infections in women. Most bladder infections are easily treated. They are not serious unless the infection spreads to the kidney. The phrases bladder infection, UTI, and cystitis are often used to describe the same thing. But they are not always the same. Cystitis is an inflammation of the bladder. The most common cause of cystitis is an infection. Symptoms The infection causes inflammation in the urethra and bladder. This causes many of the symptoms. Themost common symptoms of a bladder infection are: Pain or burning when urinating Having to urinate more often than usual Urgent need to urinate Only a small amount of urine comes out Blood in urine Abdominal discomfort. This is usually in the lower abdomen above the pubic bone. Cloudy urine Strong- or bad-smelling urine Unable to urinate (urinary retention) Unable to hold urine in (urinary incontinence) Fever Loss of appetite Confusion (in older adults) Causes Bladder infections are not contagious. You can't get one from someone else, from a toilet seat, or from sharing a bath. The most common cause of bladder infections is bacteria from the bowels. The bacteria get onto the skin around the opening of the urethra. From there, they can get into the urine and travel up to thebladder, causing inflammation and infection. This usually happens because of: Wiping improperly after urinating. Always wipe from front to back. Bowel incontinence Procedures such as having a catheter inserted Older age Not emptying your bladder. This can allow bacteria a chance to grow in your urine. Dehydration Constipation Sex Use of a diaphragm for control Treatment Bladder infections are diagnosed by a urine test. They are treated with antibiotics and usually clear up quickly without complications. Treatment helps prevent a more serious kidney infection. Medicines Medicines can help in the treatment of a bladder infection: Take antibiotics until they are used up, even if you feel better. It is important to finish them tomake sure the infection has cleared. You can use acetaminophen or ibuprofen for pain, fever, or discomfort, unless another medicine was prescribed. If you have chronic liver or kidney disease, talk with your healthcare provider before using these medicines. Also talk with your provider if you've ever had a stomach ulcer or gastrointestinal bleeding, or are taking blood-thinner medicines. If you are given phenazopydridine to reduce burning with urination, it will cause your urine to become a bright orange color. This can stain clothing. Care and prevention These self-care steps can help prevent future infections: Drink plenty of fluids to prevent dehydration and flush out your bladder. Do this unless you must restrict fluids for other health reasons, or your doctor told you not to. Proper cleaning after going to the bathroom is important. Wipe from front to back after using the toilet to prevent the spread of bacteria. Urinate more often. Don't try to hold urine in for a long time. Wear loose-fitting clothes and cotton underwear. Avoid tight-fitting pants. Improve your diet and prevent constipation. Eat more fresh fruit and vegetables, and fiber, and less junk and fatty foods. Avoid sex until your symptoms are gone. Avoid caffeine, alcohol, and spicy foods. These can irritate your bladder. Urinate right after intercourse to flush out your bladder. If you use control pills and have frequent bladder infections, discuss it with your doctor. Follow-up care Call your healthcare provider if all symptoms are not gone after 3 days of treatment. This is especially important if you have repeat infections. If a culture was done, you will be told if your treatment needs to be changed. If directed, you cancall to find out the results. If X-rays were done, you will be told if the results will affect your treatment. Call 911 Call 911 if any of the following occur: Trouble breathing Hard to wake up or confusion Fainting or loss of consciousness Rapid heart rate When to seek medical advice Call your healthcare provider right away if any of these occur: Fever of 100.4 F (38.0 C) or higher, or as directed by your healthcare provider Symptoms are not better by the third day of treatment Back or belly (abdominal) pain that gets worse Repeated vomiting, or unable to keep medicine down Weakness or dizziness Vaginal discharge Pain, redness, or swelling in the outer vaginal area (labia) [id number] [employer]. [address] [place] [address]. All rights reserved. This information is not intended as a substitute for professional medical care. Always follow yourhealthcare professional's instructions. 01/13/2022 19:02:14 Dysuria Dysuria Painful urination (dysuria) is often caused by a problem in the urinary tract. Dysuria is pain felt during urination. It is often described as a burning. Learn more about this problem and how it can be treated. What causes dysuria? Possible causes include: Infection with a bacteria or virus such as a urinary tract infection (UTI or a sexually transmittedinfection (STI) Sensitivity or allergy to chemicals such as those found in lotions and other products Prostate or bladder problems Radiation therapy to the pelvic area How is dysuria diagnosed? Your healthcare provider will examine you. He or she will ask about your symptoms and health. Aftertalking with you and doing a physical exam, your healthcare provider may know what is causing your dysuria. He or she will usually request a sample of your urine. Tests of your urine, or a urinalysis, are done. A urinalysis may include: Looking at the urine sample (visual exam) Checking for substances (chemical exam) Looking at a small amount under a microscope (microscopic exam) Some parts of the urinalysis may be done in the provider's office and some in a lab. And, the urinesample may be checked for bacteria and yeast (urine culture). Your healthcare provider will tell you more about these tests if they are needed. How is dysuria treated? Treatment depends on the cause. If you have a bacterial infection, you may need antibiotics. You may be given medicines to make it easier for you to urinate and help relieve pain. Your healthcare provider can tell you more about your treatment options. Untreated, symptoms may get worse. When to call your healthcare provider Call the healthcare provider right away if you have any of the following: Fever of 100.4 F (38 C) or higher No improvement after three days of treatment Trouble urinating because of pain New or increased discharge from the vagina or penis Rash or joint pain Increased back or abdominal pain Enlarged painful lymph nodes (lumps) in the groinTh [id number] [employer]. [address] [place] [address], [place] [address]. All rights reserved. This information is not intended as a substitute for professional medical care. Always follow yourhealthcare professional's instructions. Follow Up Care 01/13/2022 18:47:28 With:LEIDY DE PAZ DO Address: [address] [place] [address] [place] [phone]- [phone] When:2-4 days With:Go to emergency room if symptoms worsen Address:Unknown When:2-4 days [facility] 02-26-2022 Evaluation + Plan note Diagnostic Tests Pending * Urine Culture 01/13/22 [facility] 01-29-2022 Hospital Discharge instructions Patient Education 12/16/2021 15:29:44 Allergic Reaction, Drug Medicine Reaction: Allergic You are having an allergic reaction to a medicine you have taken. This may cause an itchy rash and sometimes swelling of various parts of the body. It could also cause trouble swallowing or breathing. The rash may take a few hours or up to 2 weeks to go away. In the future, remember to tell your healthcare provider about your allergy to this medicine so that medicines of this type won't be used again. Any medicine can cause an allergic reaction. But the most allergic reactions are caused by: Penicillin and related medicines Aspirin Ibuprofen Seizure medicines Vaccines may also trigger allergies. People whose parents or siblings have allergies are at a higher risk of developing a medicine allergy. Allergy testing may sometimes be needed to figure out the cause. Symptoms may occur within minutes, hours, or even weeks after exposure to the medicine. It can be amild or severe reaction, or potentially life threatening. Most of us think of allergic reactions when we have a rash or itchy skin. Symptoms can include: Rash, hives, redness, welts, blisters Itching, burning, stinging, pain Dry, flaky, cracking, scaly skin Belly (abdominal) cramps or nausea or stomach pain Fever. Sometimes fever is the only symptom of a drug reaction. In older adults, the risk of fever increases with the number of medicines the person takes. More severe symptoms include: Swelling of the face or lips, or drooling Trouble swallowing, feeling like your throat is closing Trouble breathing, wheezing Hoarse voice or trouble speaking Severe nausea or vomiting or diarrhea Feeling faint or lightheaded, rapid heart rate Blistering of the skin, or ulcers in the mouth or on the genitals Home care The goal of treatment is to help relieve the symptoms, and get you feeling better. Mild to medium medicine reactions usually respond quickly to antihistamines, steroids, and stopping the medicine. The rash will usually fade over several days. But it can sometimes last a couple of weeks. Over the next couple of days, there may be times when it is gets a little worse, and then better again. Here are some things to do: Throw the medicine away and don t take it again. The next reaction could be the same or worse. Call your health care provider to discuss adding this medicine allergy reaction to your electronic medical record. When getting a new medicine, always tell the healthcare provider that you are allergic to this medicine. Make certain the provider writes it down in your medical record. Avoid tight clothing and anything that heats up your skin (hot showers or baths, direct sunlight). Heat will make itching worse. An ice pack will relieve local areas of intense itching and redness. To make an ice pack, put ice cubes in a plastic bag that seals at the top. Wrap the bag in a clean, thin towel or cloth. Don t putice directly on the skin. To help prevent an infection, don't scratch the affected area. Scratching may worsen the reaction. It can damage your skin and lead to an infection. Always check the affected site for signs of an infection. Your provider may give you a prescription antihistamine. If you are not given a prescription antihistamine, oral diphenhydramine is an [id number] antihistamine available at pharmacies and grocery stores. This may be used to reduce itching if large areas of the skin are involved. This antihistamine may make you sleepy, so be careful using it in the daytime or when going to school, working, or driving. Note: Don t use diphenhydramine if you have glaucoma or if you are a man with trouble urinating due to an enlarged prostate. There are other antihistamines that cause less drowsiness and are a good choice for daytime use. Ask your pharmacist or health care provider for suggestions. Don't use diphenhydramine cream on your skin. It can cause a further skin reaction for some people. Contact your healthcare provider and ask what can be used on the affected area to help decrease theitching. Follow-up care Follow up with your healthcare provider, or as advised if your symptoms do not continue to improve or they get worse. Call 911 Call 911 if any of these occur: Shortness of breath Cool, moist, pale skin Swelling in the face, eyelids, mouth, tongue, or lips Drooling Trouble breathing or swallowing, wheezing New or worsening swelling in the mouth, throat, or tongue Hoarse voice or trouble speaking Fainting or loss of consciousness Rapid heart rate Feeling of dizziness or weakness or a sudden drop in blood pressure Feeling of doom Feeling lightheaded Severe nausea, vomiting, or diarrhea When to seek medical advice Call your healthcare provider right away if any of these occur: Continuing or recurring symptoms Nausea, abdominal cramps or stomach pain Spreading areas of itching, redness or swelling Blistering of the skin or sores or ulcers in the mouth or on the genitals Signs of infection: oSpreading redness oIncreased pain or swelling oFever of 100.4 F (38 C) or above lasting for 24 to 48 hours, or as directed by your provider oFluid or colored drainage from the affected area [id number] [employer]. [address] [place] [address]. All rights reserved. This information is not intended as a substitute for professional medical care. Always follow yourhealthcare professional's instructions. Follow Up Care 12/16/2021 14:44:07 With:LEIDY DE PAZ DO Address: [address] [place] [phone] When: only if needed [facility] 12-02-2021 Hospital Discharge instructions Patient Education 10/19/2021 19:19:04 Bladder Infection, Male (Adult) Bladder Infection, Male (Adult) You have a bladder infection. Urine is normally free of bacteria. But bacteria can get into the urinary tract from the skin around the rectum or it may travel in the blood from elsewhere in the body. This is called a urinary tract infection (UTI). An infection can occur anywhere in the urinary tract. It could be in a kidney (pyelonephritis)or in the bladder (cystitis) and urethra (urethritis). The urethra is the tube that drains the urine from the bladder through the tip of the penis. The most common place for a UTI is in the bladder. This is called a bladder infection. Most bladderinfections are easily treated. They are not serious unless the infection spreads up to the kidney. The terms bladder infection, UTI, and cystitis are often used to describe the same thing, but they aren t always the same. Cystitis is an inflammation of the bladder. The most common cause of cystitis is an infection. Keep in mind: Infections in the urine are called UTIs. Cystitis is usually caused by a UTI. Not all UTIs and cases of cystitis are bladder infections. Bladder infections are the most common type of cystitis. Symptoms of a bladder infection The infection causes inflammation in the urethra and bladder. This inflammation causes many of the symptoms. The most common symptoms of a bladder infection are: Pain or burning when urinating Having to go more often than usual Feeling like you need to go right away Only a small amount comes out Blood in urine Discomfort in your belly (abdomen), usually in the lower abdomen, above the pubic bone Cloudy, strong, or bad smelling urine Unable to urinate (retention) Urinary incontinence Fever Loss of appetite Older adults may also feel confused. Causes of a bladder infection Bladder infections are not contagious. You can't get one from someone else, from a toilet seat, or from sharing a bath. The most common cause of bladder infections is bacteria from the bowels. The bacteria get onto the skin around the opening of the urethra. From there they can get into the urine and travel up to the bladder. This causes inflammation and an infection. This usually happens because of: An enlarged prostate Poor cleaning of the genitals Procedures that put a tube in your bladder, like a Taylor catheter Bowel incontinence Older age Not emptying your bladder (The urine stays there, giving the bacteria a chance to grow.) Dehydration (This allows urine to stay in the bladder longer.) Constipation (This can cause the bowels to push on the bladder or urethra and keep the bladder fromemptying.) Treatment Bladder infections are treated with antibiotics. They usually clear up quickly without complications. Treatment helps prevent a more serious kidney infection. Medicines Medicines can help in the treatment of a bladder infection: You may have been given phenazopyridine to ease burning when you urinate. It will cause your urine to be bright orange. It can stain clothing. You may have been prescribed antibiotics. Take this medicine until you have finished it, even if you feel better. Taking all of the medicine will make sure the infection has cleared. You can use acetaminophen or ibuprofen for pain, fever, or discomfort, unless another medicine was prescribed. You can also alternate them, or use both together. They work differently and are a different class of medicines, so taking them together is not an overdose. If you have chronic liver or kidney disease, talk with your healthcare provider before using these medicines. Also talk with your provider if you ve had a stomach ulcer or GI bleeding or are taking blood thinner medicines. Home care Here are some guidelines to help you care for yourself at home: Drink plenty of fluids, unless your healthcare provider told you not to. Fluids will prevent dehydration and flush out your bladder. Use good personal hygiene. Wipe from front to back after using the toilet, and clean your penis regularly. If you aren t circumcised, retract the foreskin when cleaning. Urinate more frequently, and don t try to hold it in for long periods of time, if possible. Wear loose-fitting clothes and cotton underwear. Avoid tight-fitting pants. This helps keep you clean and dry. Change your diet to prevent constipation. This means eating more fresh foods and more fiber, and less junk and fatty foods. Avoid sex until your symptoms are gone. Avoid caffeine, alcohol, and spicy foods. These can irritate the bladder. Follow-up care Follow up with your healthcare provider, or as advised if all symptoms have not cleared up within 5days. It is important to keep your follow-up appointment. You can talk with your provider to see ifyou need more tests of the urinary tract. This is especially important if you have infections that keep coming back. If a culture was done, you will be told if your treatment needs to be changed. If directed, you cancall to find out the results. If X-rays were taken, you will be told of any findings that may affect your care. Call 911 Call 911 if any of these occur: Trouble breathing Difficulty waking up Feeling confused Fainting or loss of consciousness Rapid heart rate When to seek medical advice Call your healthcare provider right away if any of these occur: Fever of 100.4 F (38 C) or higher, or as directed by your healthcare provider Your symptoms don t improve after 2 days of treatment Back or abdominal pain that gets worse Repeated vomiting, or you aren t able to keep medicine down Weakness or dizziness [id number] [employer]. [address] [place] [address]. All rights reserved. This information is not intended as a substitute for professional medical care. Always follow yourhealthcare professional's instructions. Follow Up Care 10/19/2021 14:35:53 With:LEIDY DE PAZ DO Address: [address] [place] [phone] When:2-4 days With:LEIDY DE PAZ DO Address: [address] [place] [phone] When:2-4 days [facility] Evaluation + Plan note No data available for this section [facility] Evaluation noteNo assessment information available [facility] Work Phone: Evaluation note* Diagnosis Chronic idiopathic constipation- Primary Unspecified constipation Generalized abdominal pain Abdominal pain, generalized Other fatigue Heartburn Nausea Nausea alone [facility] Diagnosis Chronic idiopathic constipation Unspecified constipation Generalized abdominal pain Abdominal pain, generalized Heartburn Nausea Nausea alone [facility] Chronic idiopathic constipation- Primary Unspecified constipation documented in this encounter [facility] Diagnosis Onset Date Resolution Status Menorrhagia with regular cycle acute Possible exposure to STD non eactive Contraception management non eactive [facility] Work Phone: Hospital Discharge instructions Additional Instructions You tested positive for influenza B and a urinary tract infection today. The antibiotic/Keflex will help control the UTI but the flu may persist for 7 to 10 days. Please take your medications as directed and return to the ER should you have any further concernsWWVUMedicine [facility] Work Phone: Reason for referral (narrative)* Outpatient Procedure (Routine) - Authorized Specialty Diagnoses / Procedures Referred By Contac t Referred To Contact [facility] Diagnoses Generalized abdominal pain Heartburn Nausea Procedures EGD DIAGNOSTIC ESOPHAGOGASTRODUODENOS COPY TRANSORAL DIAGNOSTIC Liliya Coleman PA-C [address] [place] [address] [place] [phone] Referral ID Status Reason Start Date Expiration Date Visits Requested Visits Authorized [id number] Authorized Auto-Generat ed Referral 04/13/2022 04/13/2023 1 1 * Outpatient Procedure (Routine) - Authorized Specialty Diagnoses / Procedures Referred By Contac t Referred To Contact [facility] Diagnoses Chronic idiopathic constipation Generalized abdominal pain Procedures COLONOSCOPY DIAGNOSTIC COLONOSCOPY FLX DX W/COLLJ SPEC WHEN PFRMD Liliya Coleman PA-C [address] [place] [address] [id number] Referral ID Status Reason Start Date Expiration Date Visits Requested Visits Authorized [id number] Authorized Auto-Generat ed Referral 04/13/2022 04/13/2023 1 1 * Medication Prior Authorization - Pending Review Specialty Diagnoses / Procedures Referred By Contac t Referred To Contact Diagnoses Chronic idiopathic constipation Liliya Coleman PA-C [address] [place] [address] Referral ID Status Reason Start Date Expiration Date V isits Requested Visits Authorized [id number] Pending Review 1 1 [facility] for referral (narrative)* Outpatient Procedure (Routine) - Closed Specialty Diagnoses / Procedures Referred By Makenzieac t Referred To Contact [facility] Diagnoses Generalized abdominal pain Heartburn Nausea Procedures EGD DIAGNOSTIC ESOPHAGOGASTRODUODENOS COPY TRANSORAL DIAGNOSTIC Liliya Coleman PA-C [address] [place] [address] [facility] [address] [place] [phone] Referral ID Status Reason Start Date Expiration Date V isits Requested Visits Authorized [id number] Closed Auto-Generate d Referral 04/13/2022 04/13/2023 1 1 * Outpatient Procedure (Routine) - Closed Specialty Diagnoses / Procedures Referred By Ene t Referred To Contact [facility] Diagnoses Chronic idiopathic constipation Generalized abdominal pain Procedures COLONOSCOPY DIAGNOSTIC COLONOSCOPY FLX DX W/COLLJ SPEC WHEN PFRMD Liliya Coleman PA-C [address] [place] [address] [facility] [address] [place] [address] Referral ID Status Reason Start Date Expiration Date V isits Requested Visits Authorized [id number] Closed Auto-Generate d Referral 04/13/2022 04/13/2023 1 1 [facility] for referral (narrative)* Outpatient Procedure (Routine) - Pending Review Specialty Diagnoses / Procedures Referred By Makenzieac t Referred To Contact [facility] Diagnoses Chronic idiopathic constipation Procedures [facility] ANORECTAL MANOMETRY ANORECTAL MANOMETRY Liliya Coleman PA-C [address] [place] [address] [facility] [address] [place] [phone] Referral ID Status Reason Start Date Expiration Date Visits Requested Visits Authorized [id number] Pending Review Auto-Generat ed Referral 04/30/2022 04/30/2023 1 1 [facility]No reason for referral information availableWWVUMedicine [facility] Work Phone: Reason for visit Narrative* Outpatient Procedure (Routine) - Closed Specialty Diagnoses / Procedures Referred By Contac t Referred To Contact [facility] Diagnoses Generalized abdominal pain Heartburn Nausea Procedures EGD DIAGNOSTIC ESOPHAGOGASTRODUODENOS COPY TRANSORAL DIAGNOSTIC Liliya Coleman PA-C [address] [place] [address] [facility] [address] [place] [address] Referral ID Status Reason Start Date Expiration Date V isits Requested Visits Authorized [id number] Closed Auto-Generate d Referral 04/13/2022 04/13/2023 1 1 [facility] Summary Purpose Family History No Family History Records Found Relationship Condition Age at Onset Recorded Date/T samuel grandfather Cardiac disease Unknown Myocardial infarction Unknown Advance Directives No Advanced Directives Records Found Advance Directive Response Recorded Date/ Time Living Will No February 25, 2022 2:25pm Power of Primary Products Inspectors No February 25 2:25pm Documents on File Type Date Recorded 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 Expl 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 Advance Directive(s) 04/26/2022 12:55 PM Advance Directive Response Recorded Date/ Time Living Will No September 21 4:41pm Power of Primary Products Inspectors No September 21, 2022 4:41pm Advance Directive Response Recorded Date/ Time Living Will No November 25 12:40am Power of Primary Products Inspectors No November 25, 023 12:40am Advance Directive Response Recorded Date/ Time Living Will No March 18, 2023 2: 11pm Power of Primary Products Inspectors No March 18, 2023 2:11pm Chief Complaint and Reason for Visit Chief Complaint constipation Chief Complaint DIZZINESS Chief Complaint DIZZINESS FEVER Chief Complaint FEVER depo consult ref by Dr De Paz Reason for Visit Menorrhagia with reg ular cycle Possible exposure to STD Contraception management Chief Complaint Admit Date 6 wk med check January 07, 2025 8:08am Discuss Control Options *$40 copay April 08, 2025 8:35am Reason for Visit Admit Date Menorrhagia with regular cycle January 07, 2025 8:08am Menorrhagia with regular cycle April 08, 2025 8:35am Possible exposure to STI April 08, 2025 8:35am Vaginal itching April 08, 2025 8:35a m Additional Source Comments INFORMATION SOURCE (unrecogn ized section and content) DATE CREATED AUTHOR 02/14/2022 [facility] ([place]) DATE CREATED AUTHOR AUTHOR'S ORGANIZ ATION 04/28/2022 [facility] DATE CREATED AUTHOR AUTHOR'S ORGANIZ ATION 01/12/2023 [facility] DATE CREATED AUTHOR AUTHOR'S ORGANIZ ATION 09/26/2025 [facility] Goals (unrecognized section and content) Goals may be documented in a n alternate section Source Comments (unrecognize d section and content) In the event this informatio n is protected by the Federal Confidentiality of Alcohol and Drug Abuse Patient Records regulations: The Federal rules restrict any use of the information to criminally investigate or prosecute any alcohol or drug abuse patient.[facility] the event this information is protected by the Federal Confidentiality of Alcohol and Drug Abuse Patient Records regulations: The Federal rules restrict any use of the information to criminally investigate or prosecute any alcohol or drug abuse patient.[facility] the event this information is protected by the Federal Confidentiality of Alcohol and Drug Abuse Patient Records regulations: The Federal rules restrict any use of the information to criminally investigate or prosecute any alcohol or drug abuse patient.[facility] the event this information is protected by the Federal Confidentiality of Alcohol and Drug Abuse Patient Records regulations: The Federal rules restrict any use of the information to criminally investigate or prosecute any alcohol or drug abuse patient.[facility] Reason for Visit (unrecogniz ed section and content) Reason Comments Constipation Abdominal Pain- No a ppetite CT at [facility]- View CE Summarization 02/25 ER at [place] and Xray 02/26 at [facility] Care Teams (unrecognized sec tion and content) Central Office Operator Relationship Specialty Start Date End Date Leidy De Paz [address] [place] [phone] (Fax) PCP - General Pediatrics 04/13/22 Central Office Operator Relationship Specialty Start Date End Date Leidy De Paz [address] [place] [phone] (Fax) PCP - General Pediatrics 04/13/22 Central Office Operator Relationship Specialty Start Date End Date Leidy De Paz [address] [place] [phone] PCP - General Pediatrics 04/13/22 Central Office Operator Relationship Specialty Start Date End Date Leidy De Paz [address] [place] [phone] PCP - General Pediatrics 04/13/22 Team Status: Active Member Role Status Dates Dr. Deanna Moreno MD Family Provider Active Dr. Leidy De Paz DO Primary Care Provider Active Team Status: Inactive Member Role Status Dates Dr. Leidy De Paz DO Primary Care Provider, Referri ng Provider Active Leatha Bassett TELECOMMUNICATIONS FIELD ENGINEER TELECOMMUNICATIONS FIELD ENGINEER-C Attending Provider Active Team Status: Inactive Member Role Status Dates Dr. Leidy De Paz DO Primary Care Provider Active Dr. Kiran Schreiber DO Attending Provider, Emergency Pr ovider Active Team Status: Inactive Member Role Status Dates Dr. Leidy De Paz DO Primary Care Provider Active Leatha Bassett NP TELECOMMUNICATIONS FIELD ENGINEER-C Attending Provider, Referring Provider Active Team Status: Active Member Role Status Dates Dr. Leidy De Paz DO Primary Care Provider Active Team Status: Inactive Member Role Status Dates Dr. Leidy De Paz DO Primary Care Provider Active Start: January 07, 2025 End: January 07, 2025 Dr. Leidy De Paz DO Referring Provider Active Start: January 07, 2025 End: January 07, 2025 STEPHANY Sung Attending Provider Active Start: January 07, 2025 End: January 07, 2025 Team Status: Inactive Member Role Status Dates Dr. Leidy De Paz DO Primary Care Provider Active Start: April 08, 2025 End: April 08, 2025 Dr. Leidy De Paz DO Referring Provider Active Start: April 08, 2025 End: April 08, 2025 STEPHANY Sung Attending Provider Active Start: April 08, 2025 End: April 08, 2025 Team Status: Inactive Member Role Status Dates Dr. Leidy De Paz DO Primary Care Provider Active Start: April 08, 2025 End: April 08, 2025 STEPHANY Sung Attending Provider Active Start: April 08, 2025 End: April 08, 2025 STEPHANY Sung Referring Provider Active Start: April 08, 2025 End: April 08, 2025 FOR RECORDS PERTAINING TO PATIENTS WHO ARE OR HAVE BEEN ENROLLED IN A CHEMICAL DEPENDENCY/SUBSTANCEABUSE PROGRAM, SOME INFORMATION MAY BE OMITTED. This clinical summary was aggregated from multiple sources. Caution should be exercised in using it in the provision of clinical care. This summary normalizes information from multiple sources, and as a consequence, information in this document may materially change the coding, format and clinical context of patient data. In addition, data may be omitted in some cases. CLINICAL DECISIONS SHOULD BE BASED ON THE PRIMARY CLINICAL RECORDS. [facility] [employer] [facility]. provides no warranty or guarantee of the accuracy or completeness of information in this document.
== END | disposition home or self-care (01) ==
LOC: OPUS 12:56
PROVIDERS: PCP Pediatrics; Referring Provider Nurse Practitioner Women's Health; Visit Provider Nurse Practitioner Women's Health
DX: N93.9 Abnormal uterine and vaginal bleeding, unspecified (principal)
CPT/HCPCS: 76830; 76856

== ENCOUNTER → 2025-10-27 | Outpatient (CLI) | payer OTHER, SELFPAY ==
--- OUTSIDE RECORDS SUMMARY | 2025-10-27 12:06 | XMS RPT_ITS | CCD ---
Author Organization [facility] Care Team Providers Care National Opelint Analyst Name Role Phone LEIDY DE PAZ DO Primary Care Physician Leidy De Paz Primary Care Provider [phone] JULIAN GILLIAM Attending Unavailable LEIDY DE PAZ [...] Provider Dr. Leidy De Paz Referring Provider Serjio FBI PROFILER, STEPHANY Zhang Attending Provider [phone] Dr. Leidy De Paz DO Primary Care Provider Dr. Leidy De Paz DO Referring Provider Sreekanth FBI PROFILER-C, Attending Provider Sreekanth FBI PROFILER-C, Referring Provider Serjio FBI PROFILER, Leatha Attending Unavailable Serjio FBI PROFILER, Leatha Referring Unavailable Kruepke, Leidy Primary Care Unavailable Barkman, Referring Unavailable Kruepke, Leidy Primary Care Unavailable Barkman, Attending Unavailable Kruepke, Leidy Primary Care Unavailable Kruepke, Leidy Referring Unavailable Barkman, Attending Unavailable Kruepke, Leidy Primary Care Unavailable Serjio FBI PROFILER, Leatha Attending Unavailable Kruepke, Leidy Referring Unavailable [...] diphenhydrAMINE; Translations: [diphenhydramine] Drug Allergy 7 Unknown [facility] (10 sources) Promethazine; Translations: [promethazine] Drug Allergy 8 Other [facility] Comment on above: intolerance (7 sources) Caffeine; Translations: [CAFFEINE] Drug Allergy 2 Vomiting, Other: See Comments [facility] (4 sources) Promethazine Drug Allergy 7 Unknown [facility] (1 source) diphenhydrAMINE; Translations: [DIPHENHYDRAMINE HCL] Drug Allergy 8 [facility] (1 source) Caffeine Drug Allergy 5 [facility] (1 source) diphenhydrAMINE Drug Allergy 5 [facility] (1 source) Promethazine Drug Allergy 5 [facility] Medications Current Medications Medication Drug Class(es) [...] Comment on above: Take 1 capsule by [facility] once daily. magnesium carbonate (1 source) End: [...] March 18, 2023 1:44pm polyethylene glycol 3350 60060 mg powder for oral solution (8 sources) [...] TOSHIA aptimaon CHLAMY,NUC ACID Negative Normal Negative [facility] Comment on above: Performed By: #### L 7000.1800, L7400.0353, M100.3200, M100.1999 #### [facility] [address] [place], [address] GC BY NUC ACID Negative Normal Negative [facility] Comment on above: Result Comment: Perf ormed at: =G - [facility] [address] [id number] Parts Coordinator: Vidhya Lion MD, Phone: [phone] Performed By: #### L 7000.1800, L7400.0353, M100.3200, M1.1999 #### [facility] [address] [place], [place], [id number] PAP I-G w/rfx hrHPV-Aptimaon 09-17-2025 ADEQ Comment Normal . [facility] Comment on above: Order Comment: Speci men Comment: [id number] Specimen Comment: No. of containers..01 ThinPrep Vial Result Comment: Sati sfactory for evaluation. Endocervical and/or squamous metaplastic cells (endocervical component) are present. Performed By: #### L 7000.1800, L7400.0353, M100.3200, M100.1999 #### [facility] [address] [place], [place], [id number] COMM . Normal . [facility] Comment on above: Order Comment: Speci men Comment: [id number] Specimen Comment: No. of containers..01 ThinPrep Vial Performed By: #### L 7000.1800, L7400.0353, M100.3200, M100.1999 #### [facility] [address] [place], [place], [address] COMMENT Comment Normal . [facility] Comment on above: Order Comment: Speci men Comment: [id number] Specimen Comment: No. of containers..01 ThinPrep Vial Result Comment: This liquid based ThinPrep(R) pap test was interpreted using the [employer](R) Genius(TM) Cervical Algorithm whole slide imaging system. Performed By: #### L 7000.1800, L7400.0353, M100.3200, M100.1999 #### [facility] [address] [place], [place], [address] DIAG Comment Normal . [facility] Comment on above: Order Comment: Speci men Comment: [id number] Specimen Comment: No. of containers..01 ThinPrep Vial Result Comment: NEGA TIVE FOR INTRAEPITHELIAL LESION OR MALIGNANCY. Performed By: #### L 7000.1800, L7400.0353, M100.3200, M100.1999 #### [facility] [address] [place], [address] HPV RFLX Comment Normal . [facility] Comment on above: Order Comment: Speci men Comment: [id number] Specimen Comment: No. of containers..01 ThinPrep Vial Result Comment: The HPV DNA reflex criteria were not met with this specimen result therefore, no HPV testing was performed. Performed at: [facility] [address] [place] [address], [place], [place] [id number] Parts Coordinator: Jose Talbert MD, Phone: [phone] Performed at: WB - [facility] [id number] Parts Coordinator: Vidhya Lion MD, Phone: [phone] Performed By: #### L 7000.1800, L7400.0353, M100.3200, M100.2000 #### [facility] [address] [place], [address] PAPSMR Comment Normal . [facility] Comment on above: Order Comment: Speci men Comment: [id number] Specimen Comment: No. of containers..01 ThinPrep Vial [...] #### L 7000.1800, L7400.0353, M100.3200, M100.1999 #### [facility] [address] [place], [address] PERFORM Comment Normal . [facility] Comment on above: Order Comment: Speci men Comment: [id number] Specimen Comment: No. of containers..01 ThinPrep Vial Result Comment: Rosalie Santiago, Aircraft Landing Gear Inspector (ASCP) Performed By: #### L 7000.1800, L7400.0353, M100.3200, M100.1999 #### [facility] [address] [place], [address] Genital Culture Comprehensiv tania 09-15-2025 VAC Reason for Exam: AUB Normal vaginal jayden isolated. No yeast, Gardnerella, Neisseria or beta-hemolytic Streptococcus isolated. Normal [facility] Comment on above: Performed By: #### L 7000.1800, L7400.0353, M100.3200, M100.1999 #### [facility] [address] [place], [address] Gram Stainon 09-14-2025 GS Reason for Exam: AUB Gram Stain 4+ Gram positive rods 1+ Epithelial cells No Gram negative diplococci Score = 0 Interpretation: 0-3 Normal, 4-6 Intermediate, 7-10 Positive BV Normal [facility] Comment on above: Performed By: #### L 7000.1800, L7400.0353, M100.3200, M100.2000 #### [facility] [address] [place], [address] Metrology Engineer Office Visit Reporton 09-14-2025 Metrology Engineer Office Visit Report [facility] [address], [address] [place] [address] OFFICE VISIT Date of Service: 09/14/25 MR#: [id number] Acct: [id number] Name: EFRAIN ACOSTA Rep #: [id number] : 2005 Provider: STEPHANY ambriz Age/Sex: 20/F Location: [facility] Status: Signed Intake Vital Signs 04/08/25 08:43 09/14/25 10:38 09/14/25 10:43 Height 4 ft 9 in 4 ft 9 in 4 ft 9 in Weight: 117 lb 8 oz BMI 25.4 BP 102/65 Intake Visit Reasons: Period Pain, Heavy bleeding every 2 weeks Scalp Specialist Required: No Is patient in pain?: No [...] if AUB recurs 09/14/25 1144 Date Leatha Ferdinand FBI PROFILER FBI PROFILER-C Cosigner Signature: Date (if applicable) CC: Normal [facility] Chlamydia/GC TOSHIA aptimaon CHLAMY,NUC ACID Negative Normal Negative [facility] Comment on above: Performed By: #### L 0.1800, , M1.3200 #### [facility] [address] [place], [place], [id number] GC BY NUC ACID Negative Normal Negative [facility] Comment on above: Result Comment: Perf ormed at: =G - [facility] [address] [id number] Parts Coordinator: Vidhya Lion MD, Phone: [phone] Performed By: #### L 0.1800, , M100.3200 #### [facility] [address] [place], [address] Genital Culture Comprehensiv tania 04-10-2025 VAC Reason for Exam: vaginal discharge No Neisseria or beta-hemolytic Streptococcus isolated. Presumptive C albicans Amount Growth 1+ Normal [facility] Comment on above: Performed By: #### L 0.1800, .1999, M100.3200 #### [facility] [address] [place], [place], [address] HSV 1 AND 2 IgGon 04-10-2025 HSV 1 IgG Non-Reactive Normal Non Reactive [facility] Comment on above: Result Comment: Pl ease note reference interval change HSV-1 IgG testing performed using the [employer] Elecsys HSV-1 IgG assay. Performed By: #### L 3890.6006, L7000.7000, L3400.1610, L509.8002, L3890.6102 ####[facility] [address] [place], [address] HSV 2 IgG Non-Reactive Normal Non Reactive [facility] Comment on above: Result Comment: Pl ease [...] [employer] HSV-2 IgG assay. Performed at: [address] [id number] Parts Coordinator: Stephen Wood MD, Phone: [phone] Performed at: [address] [id number] Parts Coordinator: Gil Henderson PhD, Phone: [phone] Performed By: #### L 3890.6006, L7000.7000, L3400.1610, L509.8002, L3890.6102 ####[facility] [address] [place], [place], [address] Hepatitis C,RNA PCR Viral Lo admissions consultant 04-10-2025 HCV log 10 TNP Normal . [facility] Comment on above: Performed By: #### L 3890.6006, L7000.7000, L3400.1610, L509.8002, L3890.6102 ####[facility] [address], [address] HCV QT RNA PCR Not detected Normal . [facility] Comment on above: Performed By: #### L 3890.6006, L7000.7000, L3400.1610, L509.8002, L3890.6102 ####[facility] [address], [address] TEST INFO: Comment Normal . [facility] Comment on above: Result Comment: The quantitative range of this assay is 15 IU/mL to 100 million IU/mL. Performed By: #### L 3890.6006, L7000.7000, L3400.1610, L509.8002, L3890.6102 ####[facility] [address] [place], [address] Chlamydia trachomatis rRNA d etection by probe and target amplification methodOrdered By: Carmen Stack on 04-08-2025 C. trachomatis rRNA TOSHIA+probe Ql (Unsp spec) Negative Negative [facility] Gram Stainon 04-08-2025 GS Reason for Exam: vaginal discharge Gram Stain 3+ Gram positive rods 2+ Gram negative rods No Gram negative diplococci Score = 3 Interpretation: 0-3 Normal, 4-6 Intermediate, 7-10 Positive BV Normal [facility] Comment on above: Performed By: #### L 7000.1800, M100.2000, M100.3200 #### [facility] [address] [place], [address] Gram stainOrdered By: Carmen Stack on 04-08-2025 Microscopic observation Gram stain Nom (Unsp spec) [facility] HIVon 04-08-2025 HIV Non-Reactive Normal Nonreactive [facility] Comment on above: Result Comment: Non- Reactive Reactive Repeatedly reactive samples must be confirmed according to CDC recommended confirmatory algorithms. The subresults for either HIVAG or AHIV can be used as an aid in the selection of the confirmation algorithm for reactive samples. Send out specimens with Reactive results to [facility] for confirmation. Order the HIV antibody detection and differentiation: #[id number] Performed By: #### L 3890.6006, L7000.7000, L3400.1610, L509.8002, L3890.6102 ####[facility] [address] [place], [place], [address] L3890.6102on 04-08-2025 HEP B Surf Ag Non-Reactive Normal Nonreactive [facility] Comment on above: Result Comment: Reac tive: Presumptive evidence of HBV. Repeatedly reactive samples must be confirmed using a neutralization test (Elecsys HBsAg Confirmatory Test) Non-Reactive: HBsAg not detected; does not exclude the possibility of exposure to HBV Performed By: #### L 3890.6006, L7000.7000, L3400.1610, L509.8002, L3890.6102 ####[facility] [address] [place], [place], [id number] Laboratory - Chemistry and C hemistry - challengeOrdered By: Carmen Stack on 04-08-2025 HCG ( test) Ql (U) Negative [facility] - Microbiology an d Antimicrobial susceptibilityOrdered By: Carmen Stack on 04-08-2025 HBV surface Ag Ql (S) Non-Reactive Nonreactive [facility] Comment on above: Reactive: Presumptiv e evidence of HBV. Repeatedly reactive samples must be confirmed using a neutralization test (Elecsys HBsAg Confirmatory Test)Non-Reactive: HBsAg not detected; does not exclude the possibility of exposure to HBV Neisseria gonorrhoeae nuclei c acid detection by amplified probe techniqueOrdered By: Carmen Stack on 04-08-2025 N. gonorrhoeae DNA TOSHIA+probe Ql (Unsp spec) Negative Negative [facility] Comment on above: Performed at: =[address] [id number] Director: Vidhya Lion MD, Phone: [phone] No Panel InformationOrdered By: Carmen Stack on 04-08-2025 Addendum Document Comment . [facility] Comment on above: The quantitative ran ge of this assay is 15 IU/mL to 100million IU/mL. HIV (1&2) Antibody Non-Reactive Nonreactive [facility] Comment on above: Non-ReactiveReactive Repeatedly reactive samples must be confirmed according to CDC recommended confirmatory algorithms. The subresults for either HIVAG or AHIV can be used as an aid in the selection of the confirmation algorithm for reactive samples.Send out specimens with Reactive results to [facility] for confirmation.Order the HIV antibody detection and differentiation: #[id number] POC Trichomonas (Rapid) Negative [facility] Metrology Engineer Office Visit Reporton 04-08-2025 Metrology Engineer Office Visit Report [facility] [address], [address] [place] [address] OFFICE VISIT Date of Service: 04/08/25 MR#: [id number] Acct: [id number] Name: EFRAIN ACOSTA Rep #: [id number] : 2005 Provider: STEPHANY Miller Age/Sex: 19/F Location: [facility] Status: Signed Intake Vital Signs 01/07/25 08:11 04/08/25 08:37 04/08/25 08:43 Height 4 ft 9 in 4 ft 9 in 4 ft 9 in Weight: 122 lb 121 lb 4 oz BMI 26.4 26.2 BP 101/68 108/73 Intake Visit Reasons: Discuss Control Options *$40 copay Chief Complaint: Discuss control options Scalp Specialist Required: No Is patient in pain?: No [...] cycle: Sta (more content not included)... Normal [facility] Serum herpes simplex virus 2 antibody assay by immunoassay (units/volume)Ordered By: Carmen Stack on 04-08-2025 HSV 2 Ab IA Qn (S) Non-Reactive Non Reactive [facility] Comment on above: Please note refere nce [...] using the RocheElecsys HSV-2 IgG assay.Performed at: [employer] [id number] Director: Stephen Wood MD, Phone: [phone] at: [facility] [employer] [id number] Director: Gil Henderosn PhD, Phone: [phone] Serum or plasma hepatitis C virus RNA measurement by probe and target amplification mOrdered By: Carmen Stack on 04-08-2025 HCV RNA TOSHIA+probe Qn Not detected . [facility] Syphilis Antibodieson 2024 Syphilis Abs Non-Reactive Normal Nonreactive [facility] Comment on above: Performed By: #### L 3890.6006, L7000.7000, L3400.1610, L509.8002, L3890.6102 ####[facility] [address] [place], [address] Metrology Engineer Office Visit Reporton 01-07-2025 Metrology Engineer Office Visit Report [facility] [address], [address] [place] [address] OFFICE VISIT Date of Service: 01/07/25 MR#: [id number] Acct: [id number] Name: EFRAIN ACOSTA Rep #: [id number] : 2005 Provider: STEPHANY Miller Age/Sex: 19/F Location: [facility] Status: Signed Intake Vital Signs 11/26/24 08:47 01/07/25 08:11 Height 4 ft 9 in 4 ft 9 in Weight: 120 lb 122 lb BMI 25.9 26.4 BP 101/70 101/68 Intake Visit Reasons: 6 wk med check Scalp Specialist Required: No Is patient in pain?: No [...] No Control Method: ocp- loestrin [facility] Medical History Anxiety Family History Grandfather Heart disease Myocardial infarction Grandfather Heart disease Myocardial infarction Social History household members: family housing: [facility] number of children: 0 current occupational status: [...] tabs 4RF 01/07/25 0857 Date Carmen Stack FBI PROFILER-C Cosigner Signature: Date (if applicable) CC: Normal [facility] CBC W/Diff, Automatedon 01-0 -2024 Absolute Lymph 2.36 X10 3/uL Normal 0.83-4.51 [facility] Comment on above: Performed By: #### L 506.0400, L501.9520, L100.0100 ####[facility] [address], [address] Absolute Neut 2.1 X10 3/uL Normal 2.0-7.7 [facility] Comment on above: Performed By: #### L 506.0400, L501.9520, L100.0100 ####[facility] [address], [address] Basophils/100 WBC (Bld) 1.0 % Normal 0-1 [facility] Comment on above: Performed By: #### L 506.0400, L501.9520, L100.0100 ####[facility] [address] [place], [address] Eosinophils/100 WBC (Bld) 2.1 % Normal 0-5 [facility] Comment on above: Performed By: #### L 506.0400, L501.9520, L100.0100 ####[facility] [address] [place], [address] Erythrocyte distribution width (RBC) [Ratio] 12.2 % Normal 11.6-14.6 [facility] Comment on above: Performed By: #### L 506.0400, L501.9520, L100.0100 ####[facility] [address] [place], [address] Hematocrit (Bld) [Volume fraction] 43.9 % Normal 37-47 [facility] Comment on above: Performed By: #### L 506.0400, L501.9520, L100.0100 ####[facility] [address] [place], [address] Hemoglobin (Bld) [Mass/Vol] 14.2 g/dL Normal 12.0-15.0 [facility] Comment on above: Performed By: #### L 506.0400, L501.9520, L100.0100 ####[facility] [address] [place], [address] IG% 0.200 Normal 0.0-0.9 [facility] Comment on above: Result Comment: IG% - Immature Granulocytes (promyelocytes, myelocytes and metamyelocytes) > 1% indicates that a LEFT SHIFT is Present. Performed By: #### L 506.0400, L501.9520, L100.0100 ####[facility] [address], [address] Lymphocytes/100 WBC (Bld) 45.7 % High 19-41 [facility] Comment on above: Performed By: #### L 506.0400, L501.9520, L100.0100 ####[facility] [address] [place], [address] MCH (RBC) [Entitic mass] 29.8 pg Normal 27.0-32.0 [facility] Comment on above: Performed By: #### L 506.0400, L501.9520, L100.0100 ####[facility] [address] [place], [address] MCHC (RBC) [Mass/Vol] 32.3 g/dL Normal 32-36 [facility] Comment on above: Performed By: #### L 506.0400, L501.9520, L100.0100 ####[facility] [address], [address] MCV (RBC) [Entitic vol] 92.2 fL Normal 81-99 [facility] Comment on above: Performed By: #### L 506.0400, L501.9520, L100.0100 ####[facility] [address], [address] Monocytes/100 WBC (Bld) 9.7 % Normal 0-10 [facility] Comment on above: Performed By: #### L 506.0400, L501.9520, L100.0100 ####[facility] [address], [address] Neutrophils/100 WBC (Bld) 41.3 % Low 47-70 [facility] Comment on above: Performed By: #### L 506.0400, L501.9520, L100.0100 ####[facility] [address], [address] Nucleated RBC (Bld) [#/Vol] 0 10*3/uL Normal 0-5 [facility] Comment on above: Performed By: #### L 506.0400, L501.9520, L100.0100 ####[facility] [address] [place], [address] Platelet mean volume (Bld) [Entitic vol] 10.6 fL Normal 6.2-12.0 [facility] Comment on above: Performed By: #### L 506.0400, L501.9520, L100.0100 ####[facility] [address], [address] Platelets (Bld) [#/Vol] 313 10*3/uL Normal 150-450 [facility] Comment on above: Performed By: #### L 506.0400, L501.9520, L100.0100 ####[facility] [address] [place], [address] RBC (Bld) [#/Vol] 4.76 10*6/uL Normal 4.2-5.4 [facility] Comment on above: Performed By: #### L 506.0400, L501.9520, L100.0100 ####[facility] [address] [place], [address] RDW SD 41.4 fl Normal 35.1-43.9 [facility] Comment on above: Performed By: #### L 506.0400, L501.9520, L100.0100 ####[facility] [address] [place], [address] WBC (Bld) [#/Vol] 5.2 10*3/uL Normal 4.4-11.0 [facility] Comment on above: Performed By: #### L 506.0400, L501.9520, L100.0100 ####[facility] [address], [address] Metrology Engineer Office Visit Reporton 11-26-2024 Metrology Engineer Office Visit Report [facility] [address], [address] [place] [address] OFFICE VISIT Date of Service: 11/26/24 MR#: [id number] Acct: [id number] Name: EFRAIN ACOSTA JOVITA Rep #: [id number] : 2005 Provider: STEPHANY Miller Age/Sex: 19/F Location: [facility] Status: Signed Intake Vital Signs 05/12/24 11:35 [...] by Kristal Mireles) household members: [facility] number of children: 0 current occupational [...] risks/benefits o (more content not included)... Normal [facility] T4 Free Directon 11-26-2024 T4 FREE DIRECT 0.98 ng/dL Normal 0.76-1.46 [facility] Comment on above: Performed By: #### L 506.0400, L501.9520, L100.0100 ####[facility] [address] [place], [place], [address] Thyroid Stim Hormone (TSH)on 11-26-2024 TSH 0.833 uIU/mL Normal 0.358-3.740 [facility] Comment on above: Performed By: #### L 506.0400, L501.9520, L100.0100 ####[facility] [address] [place], [place], [address] Basophil percentageOrdered B y: Leatha Bassett on 03-18-2023 C. trachomatis DNA TOSHIA+probe Ql (Unsp spec) Negative Negative [facility] Neisseria gonorrhoeae detect ion by PCROrdered By: Leatha Bassett on 03-18-2023 N. gonorrhoeae DNA TOSHIA+probe Ql (Cervical mucus) Negative Negative [facility] Culture, urineOrdered By: Lia Schreiber on 11-27-2022 Bacteria identified Cx Nom (U) Escherichia coli [facility] Absolute lymphocyte countOrd ered By: Kiran Schreiber on 11-25-2022 Lymphocytes Auto (Unsp spec) [#/Vol] 1.10 10*3/uL 0.83-4.51 [facility] Basophil percentageOrdered B y: Kiran Schreiber on 11-25-2022 Basophil percentage >100 SEEN /hpf 0-5 [facility] Basophils/100 WBC (Bld) 0.5 % 0-1 [facility] Chloride [Moles/Vol] 105 mmol/L 98-107 [facility] Eosinophils/100 WBC (Bld) 0.1 % 0-5 [facility] Glucose [Mass/Vol] 110 mg/dL 74-106 [facility] Comment on above: Fasting Glucose resu lt from 100 to 125 mg/dL suggests IMPAIRED HOMEOSTASIS per A.D.A. criteria. Neutrophils (Bld) [#/Vol] 8.7 10*3/uL 2.0-7.7 [facility] Neutrophils/100 WBC (Bld) 78.3 % 47-70 [facility] Potassium [Moles/Vol] 3.6 mmol/L 3.5-5.1 [facility] Sodium [Moles/Vol] 135 mmol/L 136-145 [facility] WBC (Bld) [#/Vol] 11.1 10*3/uL 4.4-11.0 [facility] Bilirubin Test strip Ql (U)O rdered By: Kiran Schreiber on 11-25-2022 Bilirubin Ql (U) Negative Negative [facility] Blood erythrocytes count (nu mber/volume)Ordered By: Kiran Schreiber on 11-25-2022 RBC (Bld) [#/Vol] 4.80 10*6/uL 4.2-5.4 [facility] Blood hemoglobin measurement (mass/volume)Ordered By: Kiran Schreiber on 11-25-2022 Hemoglobin (Bld) [Mass/Vol] 14.2 g/dL 12.0-15.0 [facility] Blood lymphocytes/100 leukoc ytesOrdered By: Kiran Schreiber on 11-25-2022 Lymphocytes/100 WBC (Bld) 9.9 % 19-41 [facility] Blood monocytes/100 leukocyt esOrdered By: Kiran Schreiber on 11-25-2022 Monocytes/100 WBC (Bld) 10.7 % 0-10 [facility] Blood platelet mean volumeOr dered By: Kiran Schreiber on 11-25-2022 Platelet mean volume (Bld) [Entitic vol] 9.5 fL 6.2-12.0 [facility] Determination of erythrocyte mean corpuscular volume (MCV)Ordered By: Kiran Schreiber on 11-25-2022 MCV (RBC) [Entitic vol] 87.7 fL 81-99 [facility] Hematocrit Auto (Bld) [Volum e fraction]Ordered By: Kiran Schreiber on 11-25-2022 Hematocrit (Bld) [Volume fraction] 42.1 % 37-47 [facility] Influenza virus A and B and SARS-CoV-2 (COVID-19) Ag panel - Upper respiratory specimOrdered By: Kiran Schreiber on 11-25-2022 SARS-CoV-2 & FLU Antigen (Rapid) Influenzae B [facility] Ketones Test strip Ql (U)Ord ered By: Kiran Schreiber on 11-25-2022 Ketones Ql (U) 50 mg/dl Negative [facility] Laboratory - Chemistry and C hemistry - challengeOrdered By: Kiran Schreiber on 11-25-2022 HCG ( test) Ql (U) Negative [facility] Comment on above: Very dilute urine sp ecimens, as indicated by a low specificgravity, may not contain registration representative levels of hCG. If is still suspected, a first morning urinespecimen should be collected 48 hours later and tested. CO2 [Moles/Vol] 22.0 mmol/L 21.0-32.0 [facility] Urea nitrogen/Creatinine [Mass ratio] 5.9 mg/mg 10-20 [facility] Laboratory - Hematology and Cell countsOrdered By: Kiran Schreiber on 11-25-2022 Erythrocyte distribution width (RBC) [Entitic vol] 37.8 fL 35.1-43.9 [facility] Erythrocyte distribution width (RBC) [Ratio] 11.7 % 11.6-14.6 [facility] Immature granulocytes/100 WBC (Bld) 0.500 % 0.0-0.9 [facility] Comment on above: IG% - Immature Granu locytes (promyelocytes, myelocytes and metamyelocytes) > 1% indicates that a LEFT SHIFT is Present. MCH (RBC) [Entitic mass] 29.6 pg 27.0-32.0 [facility] Nucleated RBC/100 WBC (Bld) [Ratio] 0 % 0-5 [facility] MCHC Auto (RBC) [Mass/Vol]Or dered By: Kiran Schreiber on 11-25-2022 MCHC (RBC) [Mass/Vol] 33.7 g/dL 32-36 [facility] Mucus LM Ql (Urine sed)Order ed By: Kiran Schreiber on 11-25-2022 Mucus Ql (Urine sed) 0 SEEN /hpf [facility] Nitrite Test strip Ql (U)Ord ered By: Kiran Schreiber on 11-25-2022 Nitrite Ql (U) Positive Negative [facility] No Panel InformationOrdered By: Kiran Schreiber on 11-25-2022 Estimated Creatinine Clearance Calc 88.71 ml/min [facility] Estimated GFR (MDRD) Amer 112 mL/min >60 [facility] Comment on above: GFR Calc Estimated GFR (MDRD) Non-Af Amer 92 mL/min >60 [facility] Comment on above: Non- GFR Calc Platelets bldOrdered By: Victor Hugo Schreiber on 11-25-2022 Platelets (Bld) [#/Vol] 242 10*3/uL 150-450 [facility] Protein Test strip Ql (U)Ord ered By: Kiran Schreiber on 11-25-2022 Protein Ql (U) 100 mg/dl Negative [facility] Serum or plasma calcium braxton urement (mass/volume)Ordered By: Kiran Schreiber on 11-25-2022 Calcium [Mass/Vol] 8.9 mg/dL 8.5-10.1 [facility] Serum or plasma creatinine m easurement (mass/volume)Ordered By: Kiran Schreiber on 11-25-2022 Creatinine [Mass/Vol] 0.84 mg/dL 0.55-1.02 [facility] Comment on above: The validity of the calculated GFR & GFRAA in patients over 70 years has not been determined. Clinical correlation is essential. Serum or plasma urea nitroge n measurement (mass/volume)Ordered By: Kiran Schreiber on 11-25-2022 Urea nitrogen [Mass/Vol] 5 mg/dL 7-18 [facility] Squamous epithelial cells de tection in urine sediment by light microscopyOrdered By: Kiran Schreiber on 11-25-2022 Epithelial cells.squamous LM Ql (Urine sed) 0-5 SEEN /hpf 5-10 [facility] Thin prep Papanicolaou smear with manual screeningOrdered By: Kiran Schreiber on 11-25-2022 Thin prep Papanicolaou smear with manual screening 8 5-15 [facility] Urine blood detectionOrdered By: Kiran Schreiber on 11-25-2022 RBC Ql (U) 250 /ul Negative [facility] RBC Ql (U) 10-25 SEEN /hpf 0-5 [facility] Urine clarityOrdered By: Victor Hugo Schreiber on 11-25-2022 Clarity (U) Cloudy Clear [facility] Urine color determinationOrd ered By: Kiran Schreiber on 11-25-2022 Color (U) Yellow Yellow [facility] Urine glucose detectionOrder ed By: Kiran Schreiber on 11-25-2022 Glucose Ql (U) Normal mg/dl Normal [facility] Urine leukocyte esterase det ection by dipstickOrdered By: Kiran Schreiber on 11-25-2022 Leukocyte esterase Test strip Ql (U) 500 /ul Negative [facility] Urine pHOrdered By: Kiran nolan on 11-25-2022 pH (U) 7.0 [pH] 5.0 - 8.0 [facility] Urine sediment bacteria coun t by microscopy (number/high power field)Ordered By: Kiran Schreiber on 11-25-2022 Bacteria LM.HPF (Urine sed) [#/Area] 3 /[HPF] None Seen [facility] Urine specific gravity measu rementOrdered By: Kiran Schreiber on 11-25-2022 Specific gravity (U) [Rel density] 1.005 1.002-1.030 [facility] Urobilinogen Auto test strip Ql (U)Ordered By: Kiran Schreiber on 11-25-2022 Urobilinogen Ql (U) Normal mg/dl Normal [facility] Progress Noteon 06-12-2022 Gluten Settling Tender Authentication Interface Message Text Patient/Family did not come to the appointment. Will await further follow up to help in patient care. Agustín Blanton MD P - [phone] 06/12/2022 Normal [facility] ANES POSTPROC EVALon 022 ANES POSTPROC EVAL HNO ID: [id number] Author: Viri Linn APRN.SEALS ENGRAVER Service: Anesthesiology Author Type: Nurse Forest Resource Specialist Type: Anesthesia Postprocedure Evaluation Filed: 04/26/2022 2:13 PM Note Text: POST ANESTHESIA EVALUATION NOTE : 2005 Procedure Summary Date: 04/26/22 Room / Location: Ambulatory Surgery Anesthesia Start: 1346 Anesthesia Stop: 1413 Procedures: COLONOSCOPY DIAGNOSTIC EGD DIAGNOSTIC Diagnosis: Chronic idiopathic constipation Generalized abdominal pain Heartburn Nausea (Abdominal pain) (Change in bowel habits) (Epigastric abdominal pain) Scheduled Providers: Ladarius Gutierrez MD Responsible Provider: Viri Kaveh, FISHER TROT [employer].SEALS ENGRAVER Anesthesia Type: MAC ASA Status: 1 Anesthesia [...] Anesthesia Observations No Documentation SIGNATURE: Viri Linn APRN.SEALS ENGRAVER PATIENT NAME: Efrain Acosta DATE: April 26, 2022 TIME: 2:13 PM CSN: [id number] Normal [facility] ANES PRE-OPon 04-26-2022 ANES PRE-OP HNO ID: [id number] Author: Viri Linn APRN.SEALS ENGRAVER Service: Anesthesiology Author Type: Nurse Forest Resource Specialist Type: Anesthesia Preprocedure Evaluation Filed: 04/26/2022 1:45 [...] April 26, 2022 TIME: 1:45 PM CSN: [id number] Normal [facility] COLONOSCOPY DIAGNOSTICon [facility] EGD DIAGNOSTICon 04-26-2022 [facility] HISTORY PHYSICALon HISTORY PHYSICAL HNO ID: [id number] Author: Ladarius Gutierrez MD Service: Gastroenterology Author [...] Additional Comments: None Ladarius Gutierrez MD Normal [facility] SURGICAL PATHOLOGYon 022 CASE REPORT Normal [facility] Comment on above: Order Comment: Speci men Type: TISSUE SPECIMEN Ordering Facility: [facility] Address: [address] [place] [address] Result Comment: Surg [facility] Pathology Report Case: [id number] Authorizing Provider: Ladarius Gutierrez MD Collected: 04/26/2022 01:51 PM Ordering Location: Ambulatory Surgery Received: 04/26/2022 07:35 PM Pathologist: Wayne Mcgarry MD Specimens: A) - DUODENUM BIOPSY B) - STOMACH BIOPSY Performed By: #### S #### [facility] CLIA [id number] [address] [place] [address] FINAL DIAGNOSIS Normal [facility] Comment on above: Order Comment: Speci lady Type: TISSUE SPECIMEN Ordering Facility: [facility] Address: [address] [place] [address] Result Comment: A. D uodenum, biopsy: -Duodenal mucosa with no diagnostic alteration -No evidence of celiac disease B. Stomach, biopsy: -Antral mucosa with marked reactive gastropathy and patchy erosion -No evidence of H. pylori Performed By: #### S #### [facility] CLIA [id number] [address] [place] [address] OF [facility] FINAL PERFORMING LAB Normal [facility] Comment on above: Order Comment: Speci men Type: TISSUE SPECIMEN Ordering Facility: [facility] Address: [address] [place] [address] Result Comment: Diag nostic interpretation performed at [facility], [address] [place] [address] CLIA# [id number] Clinical Social Work Aide: Isaac Sarmiento M.D. Performed By: #### S #### [facility] CLIA [id number] [address] [place] [address] OF JOHN GROSS DESCRIPTION Normal [facility] Comment on above: Order Comment: Marciai men Type: TISSUE SPECIMEN Ordering Facility: [facility] Address: [address] [place] [address] Result Comment: A. D UODENUM BIOPSY. Received in formalin are multiple pieces of sanders, soft tissue aggregating to 1.3 x 0.2 x 0.2 cm. Totally submitted in one cassette. B. STOMACH BIOPSY. Received in formalin are multiple pieces of sanders, soft tissue aggregating to 1.4 x 0.2 x 0.2 cm. Totally submitted in one cassette. Gross examination performed at [facility], [address] [place] [address] J 04/27/2022 12:15 AM Performed By: #### S #### [facility] CLIA [id number] [address] [place] [address] CELIAC SCREEN WITH REFLEXon 04-24-2022 GLIAD DEAMIDATED IGA QUAL Negative Normal Negative, Test not Indicated [facility] Comment on above: Order Comment: Speci men Type: BLOOD SPECIMEN Ordering Facility: [facility] Address: [address] [place] [address] Result Comment: This is used as an aid in diagnosis of celiac disease. Clinical correlation is required. The following results were obtained with an [employer] QUANTA Lite Gliadin IgA CECY Gliadin. Gliadin IgA values obtained with different manufacturers' assay methods may not be used interchangeably. The magnitude of the reported IgA levels cannot be correlated to an endpoint titer. Performed By: #### I STEPHAN CELSCR #### [facility] CLIA [id number] [address] [place] [address] OF JOHN Gliadin peptide IgA Qn (S) 3 Units Normal <20 [facility] Comment on above: Order Comment: Speci men Type: BLOOD SPECIMEN Ordering Facility: [facility] Address: [address] [place] [address] Performed By: #### I STEPHAN CELSCR #### [facility] CLIA [id number] [address] [place] [address] STATES [place] INTERPRETATION No serological evidence of celiac disease, however, if celiac disease is clinically suspected and patient is not on gluten-free diet, histological diagnosis may be considered. HLA testing may help with risk assessment. Normal [facility] Comment on above: Order Comment: Speci men Type: BLOOD SPECIMEN Ordering Facility: [facility] Address: [address] [place] [address] Performed By: #### I STEPHAN, CELSCR #### [facility] CLIA [id number] [address] [place] [address] [place] TRANSGLUTAMINASE IGA QUAL Negative Normal Negative, Test not Indicated [facility] Comment on above: Order Comment: Arnav narayanan Type: BLOOD SPECIMEN Ordering Facility: [facility] Address: [address] [place] [address] Result Comment: The following results were obtained with the [employer] QAUNTA Lite h-tTG IgA CECY. h-tTG IgA values obtained with different manufacturers' assay methods may not be used interchangeable. The magnitude of the reported IgA levels cannot be correlated to an endpoint titer. This is used as an aid in diagnosis of celiac disease. Clinical correlation is required. Performed By: #### I STEPHAN, CELSCR #### [facility] CLIA [id number] [address] [place] [address] [place] tTG IgA Qn (S) 3 Units Normal <20 [facility] Comment on above: Order Comment: Speci men Type: BLOOD SPECIMEN Ordering Facility: [facility] Address: [address] [place], [place] [address] Performed By: #### I STEPHAN CELSCR #### [facility] CLIA [id number] [address] [place] [address] [place] IGA BLDon 04-24-2022 IgA [Mass/Vol] 117 mg/dL Normal 61-348 [facility] Comment on above: Order Comment: Arnav narayanan Type: BLOOD SPECIMEN Ordering Facility: [facility] Address: [address] [place] [address] Performed By: #### I STEPHAN CELSCR #### [facility] CLIA [id number] [address] [place] [address] [place] CNCOon 04-13-2022 CNCO Letter Text Normal [facility] CNOVon 04-13-2022 CNOV Office Visit ([facility] ) EFRAIN ACOSTA ([id number]) 1 F Date Time Provider Department 04/13/22 1:00 PM LILIYA COLEAMN During your visit today, we recorded the following information about you: Pulse Blood pressure Weight Height 94/minute 108/70 51.2 kg 1.461 m Liliya Coleman PA-C 04/13/2022 2:06 PM Signed CHIEF COMPLAINT: Patient presents with: Constipation: Abdominal Pain- No appetite CT at [facility]- View CE Summarization 02/25 ER at [place] and Xray 02/26 at [facility] This consult was requested by Self for an opinion regarding constipation, abdominal pain. My final recommendations will be communicated to the requesting health care provider by way of the shared medical record for internal providers or letter via the [employer] for external providers. HPI: Efrain Acosta is a 16 year old female who presents for Constipation (Abdominal Pain- No appetite CT at [facility]- View CE Summarization 02/25 ER at [facility] and Xray 02/26 at [facility] ). PMHx of ADD, anxiety, chronic headache [...] pain after drinking half the prep. At [facility] was given an enema with better [...] is normal (more content not included)... Normal [facility] Progress Noteon 03-02-2022 Gluten Settling Tender Authentication Interface Message Text Patient ID: Efrain [...] vomiting. Previous evaluations include consultation with a application systems engineer and imaging. Know hx of chronic constiaption [...] temperature source Temporal, weight 50.2 kg. Normal [facility] ED Provider Progress Noteon 02-26-2022 Gluten Settling Tender Authentication Interface Message Text Miguelbahman Villalpando Randee [...] bowel gas pattern. 2. Large fecal load. Major Assembler: PSCB Transcribe Date/Time: Feb 26 2022 12:46A Dictated by : FAUSTINO GRIFFIN MD This examination was interpreted and the report reviewed and electronically signed by: FAUSTINO GRIFFIN MD on Feb 26 2022 12:47AM EST Labs Reviewed URINALYSIS, COMPLETE Narrative: Release to patient->Automatic URINALYSIS, AUTOMATED-MARON Narrative: Release to patient->Automatic POCT URINE HCG [...] 02/26/22212 Constipat (more content not included)... Normal [facility] Urinalysis,Automatedon 02-26 Mucous Small Normal [facility] Comment on above: Order Comment: Relea se to patient->Automatic 46145&Blood Performed By: #### C BC #### [address] [address] RBC (U) [#/Vol] 0.0 /uL Normal 0.0-20.0 [facility] Comment on above: Order Comment: Relea se to patient->Automatic 33893&Blood Performed By: #### C BC #### [address] [address] Squamous Epithelial Cells 4 /uL Normal 0-20 [facility] Comment on above: Order Comment: Relea se to patient->Automatic 92067&Blood Performed By: #### C BC #### [address] [address] Transitional Epithelial Cells 1 /uL Normal 0-20 [facility] Comment on above: Order Comment: Relea se to patient->Automatic 33034&Blood Performed By: #### C BC #### [address] [address] WBC (U) [#/Vol] 8.0 /uL Normal 0.0-20.0 [facility] Comment on above: Order Comment: Relea se to patient->Automatic 19591&Blood Performed By: #### C BC #### [address] [address] Urinalysis,Completeon 2021 Volume 12 ml Normal 12 [facility] Comment on above: Order Comment: Relea se to patient->Automatic 23677&Urine Performed By: #### U ACOM #### [address] [address] Bilirubin,urine Negative Normal Negative [facility] Comment on above: Order Comment: Relea se to patient->Automatic 82124&Urine Performed By: #### U ACOM #### [address] [address] Character Cloudy Normal [facility] Comment on above: Order Comment: Relea se to patient->Automatic 23123&Urine Performed By: #### U ACOM #### [address] [address] Color (U) Yellow Normal [facility] Comment on above: Order Comment: Relea se to patient->Automatic 65269&Urine Performed By: #### U ACOM #### [address] [address] Glucose Ql (U) Negative Normal Negative [facility] Comment on above: Order Comment: Relea se to patient->Automatic 59575&Urine Performed By: #### U ACOM #### [address] [address] Ketones Ql (U) Negative Normal Negative [facility] Comment on above: Order Comment: Relea se to patient->Automatic 60061&Urine Performed By: #### U ACOM #### [address] [address] Leukocyte esterase Test strip Ql (U) Negative Normal Negative [facility] Comment on above: Order Comment: Relea se to patient->Automatic 89684&Urine Performed By: #### U ACOM #### [address] [address] Nitrite Ql (U) Negative Normal Negative [facility] Comment on above: Order Comment: Relea se to patient->Automatic 22209&Urine Performed By: #### U ACOM #### [address] [address] pH, Urine 7.0 Normal 5.0-8.0 [facility] Comment on above: Order Comment: Relea se to patient->Automatic 26780&Urine Performed By: #### U ACOM #### [address] [address] Protein,Ur Negative Normal Neg.-Trace [facility] Comment on above: Order Comment: Relea se to patient->Automatic 56687&Urine Performed By: #### U ACOM #### [address] [address] Specific gravity (U) [Rel density] 1.019 Normal 1.005-1.030 [facility] Comment on above: Order Comment: Relea se to patient->Automatic 06346&Urine Performed By: #### U ACOM #### [address] [address] Urobilinogen (U) [Mass/Vol] 0.2 mg/dL Normal Negative [facility] Comment on above: Order Comment: Relea se to patient->Automatic 83289&Urine Performed By: #### U ACOM #### [place] [address] Progress Noteon 02-22-2022 Gluten Settling Tender Authentication Interface Message Text Patient ID: Efrain [...] Blood, Urine Negative Negative POCT Urine Specific [place] 1.025 1.005 - 1.030 POCT Ketones, Urine Negative Negative mg/dl POCT Glucose, Urine Negative Negative mg/dl Normal [facility] Urine Cultureon 02-22-2022 Bacteria identified Cx Nom (U) Is this specimen being sent to an external lab?->No Release to patient->Automatic 43797&Urine-Midstream ^^^Urine&Urine Urine Culture: 10,000 - 50,000 CFU/ml of Normal Skin/urogenital jayden Source: URNMD Collected: 02/22/22 16:37 Site: Urine Received : 02/22/22 20:27 Urine Culture FINAL 02/24/22 08:26 10,000 - 50,000 CFU/ml of Normal Skin/urogenital jayden present Normal [facility] Comment on above: Performed By: #### C #### [facility] of [address] [address] Progress Noteon 02-01-2022 Gluten Settling Tender Authentication Interface Message Text History of Presenting [...] De Paz, DO 150 mg at 01/29/22 1424 Allergies: Allergies Allergen Reactions Benadryl [Diphenhydramine Hcl] [...] and nondistended without hepatosplenomegaly or masses. Skin: [place], warm, well perfused. Musculoskeletal: Normal tone and [...] % Monoc (more content not included)... Normal [facility] Progress Noteon 01-29-2022 Gluten Settling Tender Authentication Interface Message Text Patient ID: Efrain [...] Subjective HPI Comments: Assessment for counseling at [facility] this Saturday. Anxiety is very high right [...] Line *Present Clear Background *Present Lot Number [id number] Normal [facility] .Auto Diffon 01-26-2022 Basophil, Absolute 0.10 10 3/mcL Normal 0.00-0.19 [facility] ([place]) Comment on above: Performed By: #### P REGU, UA, UAMICAO #### [address] [address] Basophils/100 WBC (Bld) 0.9 % Normal 0.0-2.5 A [facility] ([place]) Comment on above: Performed By: #### P REGU, UA, UAMICAO #### [address] [address] Eosinophil, Absolute 0.70 10 3/mcL High 0.00-0.40 A [facility] ([place]) Comment on above: Performed By: #### P REGU, UA, UAMICAO #### [address] [address] Eosinophils/100 WBC (Bld) 9.6 % High 0.0-7.0 [facility] ([place]) Comment on above: Performed By: #### P REGU, UA, UAMICAO #### [address] [address] Lymphocyte, Absolute 3.30 10 3/mcL Normal 0.77-3.85 A [facility] ([place]) Comment on above: Performed By: #### P REGU, UA, UAMICAO #### [address] [address] Lymphocytes/100 WBC (Bld) 43.7 % Normal 10.0-50.0 [facility] ([place]) Comment on above: Performed By: #### P REGU, UA, UAMICAO #### [address] [address] Monocyte, Absolute 0.60 10 3/mcL Normal 0.15-1.00 [facility] ([place]) Comment on above: Performed By: #### P REGU, UA, UAMICAO #### [address] [address] Monocytes/100 WBC (Bld) 8.3 % Normal 1.7-13.0 A [facility] ([place]) Comment on above: Performed By: #### P REGU, UA, UAMICAO #### [address] [address] Neutrophils/100 WBC (Bld) 37.5 % Normal 37.0-80.0 [facility] ([place]) Comment on above: Performed By: #### P REGU, UA, UAMICAO #### [address] [address] .GFRon 01-26-2022 GFR 110 ml/min/1.73sqm Normal [facility] ([place]) Comment on above: Result Comment: GFR Population [...] By: #### P REGU, UA, UAMICAO #### [address] [address] GFR Non- 91 ml/min/1.73sqm Normal [facility] ([place]) Comment on above: Result Comment: GFR Population [...] By: #### P REGU, UA, UAMICAO #### [address] [address] .NEUABSon 01-26-2022 Neutrophil, Absolute 2.90 10 3/mcL Normal 2.85-6.16 A [facility] ([place]) Comment on above: Performed By: #### P REGU, UA, UAMICAO #### [address] [address] BMPon 01-26-2022 BUN/Creatinine Ratio 11 ratio Normal 7-27 [facility] ([place]) Comment on above: Performed By: #### P REGU, UA, UAMICAO #### [address] [address] Calcium [Mass/Vol] 9.8 mg/dL Normal 8.4-10.2 [facility] ([place]) Comment on above: Performed By: #### P REGU, UA, UAMICAO #### [address] [address] Chloride [Moles/Vol] 101 mmol/L Normal 98-107 [facility] ([place]) Comment on above: Performed By: #### P REGU, UA, UAMICAO #### [address] [address] CO2 [Moles/Vol] 20 mmol/L Low 22-29 [facility] ([place]) Comment on above: Performed By: #### P REGU, UA, UAMICAO #### [address] [address] Creatinine [Mass/Vol] 0.82 mg/dL Normal 0.55-1.02 [facility] ([place]) Comment on above: Performed By: #### P REGU, UA, UAMICAO #### [address] [address] Electrolyte Balance 15.0 mEq/L Normal 4.0-15.0 [facility] ([place]) Comment on above: Performed By: #### P REGU, UA, UAMICAO #### [address] [address] Glucose [Mass/Vol] 94 mg/dL Normal 70-105 [facility] ([place]) Comment on above: Performed By: #### P REGU, UA, UAMICAO #### [address] [address] Potassium [Moles/Vol] 3.9 mmol/L Normal 3.5-5.1 [facility] ([place]) Comment on above: Performed By: #### P REGU, UA, UAMICAO #### [address] [address] Sodium [Moles/Vol] 136 mmol/L Normal 136-145 [facility] ([place]) Comment on above: Performed By: #### P REGU, UA, UAMICAO #### [address] [address] Urea nitrogen [Mass/Vol] 9 mg/dL Normal 7-18 [facility] ([place] Comment on above: Performed By: #### P REGU, UA, UAMICAO #### [address] [address] CBCon 01-26-2022 Erythrocyte distribution width (RBC) [Ratio] 12.7 % Normal 11.5-14.5 [facility] ([place] Comment on above: Performed By: #### P REGU, UA, UAMICAO #### [address] [address] Hematocrit (Bld) [Volume fraction] 43.3 % Normal 37.0-47.0 [facility] ([place] Comment on above: Performed By: #### P REGU, UA, UAMICAO #### [address] [address] Hgb 14.9 G/dL Normal 12.0-16.0 [facility] ([place] Comment on above: Performed By: #### P REGU, UA, UAMICAO #### [address] [address] MCH (RBC) [Entitic mass] 30.0 pg Normal 27.0-31.2 [facility] ([place] Comment on above: Performed By: #### P REGU, UA, UAMICAO #### [address] [address] MCHC 34.4 G/dL Normal 33.0-37.0 [facility] ([place] Comment on above: Performed By: #### P REGU, UA, UAMICAO #### [address] [address] MCV (RBC) [Entitic vol] 87.0 fL Normal 80.0-94.0 [facility] ([place]) Comment on above: Performed By: #### P REGU, UA, UAMICAO #### [address] [address] Platelet 340 10 3/mcL Normal 130-400 [facility] ([place] Comment on above: Performed By: #### P REGU, UA, UAMICAO #### [address] [address] Platelet mean volume (Bld) [Entitic vol] 8.6 fL Normal 7.4-10.4 [facility] ([place] Comment on above: Performed By: #### P DIO SAHNI [place]AM[place]O #### [address] [address] RBC 4.97 10 6/mcL Normal 4.20-5.40 [facility] ([place] Comment on above: Performed By: #### DIO DENNIS [place]O #### [address] [address] WBC 7.60 10 3/mcL Normal 4.60-10.80 [facility] ([place] Comment on above: Performed By: #### DIO DENNIS UAMICAO #### [address] [address] DIMERon 01-26-2022 D-Dimer <200 Normal 0-230 [facility] ([place] Comment on above: Result Comment: The result [...] By: #### Yane REGDIO Diaz [place] #### [address] [address] TROPHSon 01-26-2022 Troponin I High Sensitivity 18.5 ng/L Normal 0.0-51.4 [facility] ([place]) Comment on above: Performed By: #### DIO DENNIS UAMICAO #### [address] [address] XR CHEST 1 VIEWon 01-26-2022 XR CHEST [...] 01/26/2022 12:25:43 AM Ordering Provider: CARLYN Cisneros [facility] ([place]) LABORATORYOrdered By: Liss Lucia on 01-25-2022 Basophil, [...] Panelon Calcium [Mass/Vol] 9.8 mg/dL Normal 7.6-11.0 [facility] Comment on above: Order Comment: Relea se to patient->Automatic 83205&Blood Performed By: #### M G #### [address] [address] CO2 [Moles/Vol] 20.5 mmol/L Low 22.0-29.0 [facility] Comment on above: Order Comment: Relea se to patient->Automatic 63229&Blood Performed By: #### M G #### [address] [address] Creatinine [Mass/Vol] 0.66 mg/dL Normal 0.50-1.00 [facility] Comment on above: Order Comment: Relea se to patient->Automatic 10528&Blood Performed By: #### M G #### [address] [address] Glucose [Mass/Vol] 96 mg/dL Normal 70-99 [facility] Comment on above: Order Comment: Relea se to patient->Automatic 21562&Blood Result Comment: Crit eria for Diagnosis of Diabetes: Fasting Specimen (no caloric intake for at least 8 hours): <100 mg/dL Normal 100-125 mg/dL Increased risk for Diabetes >125 mg/dL Diagnostic for Diabetes Random Glucose (any time of day without regard to last meal): > or = 200 mg/dL plus Classic Symptoms of Diabetes Performed By: #### M G #### [address] [address] Urea nitrogen [Mass/Vol] 10 mg/dL Normal 4-19 [facility] Comment on above: Order Comment: Relea se to patient->Automatic 85199&Blood Performed By: #### M G #### [address] [address] Chloride [Moles/Vol] 104 mmol/L Normal 96-108 [facility] Comment on above: Order Comment: Relea se to patient->Automatic 38761&Blood Performed By: #### M G #### [address] [address] Potassium [Moles/Vol] 4.0 mmol/L Normal 3.3-5.1 [facility] Comment on above: Order Comment: Relea se to patient->Automatic 79453&Blood Result Comment: Hemo lysis detected. Results may be falsely elevated. Interpret results with caution. Performed By: #### M G #### [address] [address] Sodium [Moles/Vol] 138 mmol/L Normal 133-145 [facility] Comment on above: Order Comment: Relea se to patient->Automatic 57334&Blood Performed By: #### M G #### [address] [address] [address] HEAD WITHOUT IV CONTRASTo n 01-22-2022 [...] Dr. Des Quintanilla at 01/22/2022 17:53 Normal [facility] Complete Blood Counton 01-22 Differential Complete Automated Normal [facility] Comment on above: Order Comment: Relea se to patient->Automatic 01993&Blood Performed By: #### C BC #### [address] [address] Basophils/100 WBC (Bld) 1.20 % High 0.00-1.00 [facility] Comment on above: Order Comment: Relea se to patient->Automatic 21356&Blood Performed By: #### C BC #### [address] [address] Eosinophils/100 WBC (Bld) 1.40 % Normal 0.00-3.00 [facility] Comment on above: Order Comment: Relea se to patient->Automatic 45638&Blood Performed By: #### C BC #### [address] [address] Erythrocyte distribution width (RBC) [Ratio] 11.8 % Normal 0.0-14.4 [facility] Comment on above: Order Comment: Relea se to patient->Automatic 58428&Blood Performed By: #### C BC #### [address] [address] Hematocrit (Bld) [Volume fraction] 42.7 % Normal 37.0-46.0 [facility] Comment on above: Order Comment: Relea se to patient->Automatic 23949&Blood Performed By: #### C BC #### [address] [address] Hemoglobin (Bld) [Mass/Vol] 15.0 g/dL Normal 12.0-15.0 [facility] Comment on above: Order Comment: Relea se to patient->Automatic 50507&Blood Performed By: #### C BC #### [address] [id number] Immature granulocytes/100 WBC (Bld) 0.10 % Normal [facility] Comment on above: Order Comment: Relea se to patient->Automatic 58847&Blood Result Comment: Maggi ture Granulocyte Percent includes promyelocytes, myelocytes, and metamyelocytes. IG% > 1.0 indicates a left shift is present. With automated differentials, bands are included in the neutrophil count and not in the Immature Granulocyte Percent. Performed By: #### C BC #### [address] [id number] Lymphocytes/100 WBC (Bld) 25.2 % Normal 25.0-45.0 [facility] Comment on above: Order Comment: Relea se to patient->Automatic 54543&Blood Performed By: #### C BC #### [address] [address] MCH (RBC) [Entitic mass] 29.9 pg Normal 25.0-35.0 [facility] Comment on above: Order Comment: Relea se to patient->Automatic 20822&Blood Performed By: #### C BC #### [address] [address] MCHC 35.1 % Normal 31.0-37.0 [facility] Comment on above: Order Comment: Relea se to patient->Automatic 37451&Blood Performed By: #### C BC #### [address] [id number] MCV (RBC) [Entitic vol] 85.1 fL Normal 78.0-96.0 [facility] Comment on above: Order Comment: Relea se to patient->Automatic 81339&Blood Performed By: #### C BC #### [address] [address] Monocytes/100 WBC (Bld) 7.50 % High 3.00-6.00 [facility] Comment on above: Order Comment: Relea se to patient->Automatic 97754&Blood Performed By: #### C BC #### [place] [address] [place] [address] Neutrophils (Bld) [#/Vol] 4.9 10*3/uL Normal 2.0-7.2 [facility] Comment on above: Order Comment: Relea se to patient->Automatic 87669&Blood Performed By: #### C BC #### [address] [address] Neutrophils/100 WBC (Bld) 64.6 % High 34.0-64.0 [facility] Comment on above: Order Comment: Relea se to patient->Automatic 45684&Blood Performed By: #### C BC #### [address] [address] Nucleated RBC/100 WBC (Bld) [Ratio] 0.0 % Normal -1.0-0.0 [facility] Comment on above: Order Comment: Relea se to patient->Automatic 57421&Blood Performed By: #### C BC #### [address] [address] Platelet mean volume (Bld) [Entitic vol] 9.9 fL Normal [facility] Comment on above: Order Comment: Relea se to patient->Automatic 97145&Blood Result Comment: MPV is platelet range and age dependent Performed By: #### C BC #### [address] [address] Platelets (Bld) [#/Vol] 337 10*3/uL Normal 150-450 [facility] Comment on above: Order Comment: Relea se to patient->Automatic 97581&Blood Performed By: #### C BC #### [facility] [address] [place], [place] [id number] RBC 5.02 10E12/L High 4.10-4.80 [facility] Comment on above: Order Comment: Relea se to patient->Automatic 80147&Blood Performed By: #### C BC #### [facility] [address] [place] [address] WBC (Bld) [#/Vol] 7.6 10*3/uL Normal 4.5-13.0 [facility] Comment on above: Order Comment: Relea se to patient->Automatic 45312&Blood Performed By: #### C BC #### [facility] [address] [place] [address] ED Provider Progress Noteon 01-22-2022 Gluten Settling Tender Authentication Interface Message Text Efrain Acosta : [...] drift. Coordination: Romberg sign negative. Coordination normal. Sffbpr-Orlo-Dzpgru Test normal. Psychiatric: Behavior: Behavior normal. (more content not included)... Normal [facility] HCG,Urineon 01-22-2022 Beta HCG ( test) Ql (U) Negative Normal [facility] Comment on above: Result Comment: Nonp regnant females and males-Negative females-Positive Performed By: #### H CGUR #### [address] [address] Magnesiumon 01-22-2022 Magnesium [Mass/Vol] 2.2 mg/dL Normal 1.5-2.2 [facility] Comment on above: Order Comment: Relea se to patient->Automatic 89298&Blood Performed By: #### M G #### [address] [place] [address] Progress Noteon 01-22-2022 Gluten Settling Tender Authentication Interface Message Text Patient ID: Efrain [...] all be due to anxiety. Sent to [facility] ED for further evaluation/treatment and discussed symptoms/concerns with ED attending. Subjective HPI Comments: Tried atarax when she was anxious at night. [place] very shaky and jittery. Tried it a [...] Went to the ED the other day- uGnner Galindo. Feels like she is out of [...] (!) 149 cm, weight 50 kg. Normal [facility] TSH with reflex T4FRon 01-22 TSH with reflex T4FR 0.586 uIU/mL Normal 0.500-4.300 A [facility] Comment on above: Order Comment: Relea se to patient->Automatic 78787&Blood Performed By: #### C #### [facility] [place] [address] US DUPLEX ABDOMEN PELVIS COM PLETEon 01-22-2022 [...] Dr. Des Quintanilla at 01/22/2022 18:56 Normal [facility] US PELVIS NON OB COMPLETEon 01-22-2022 US [...] Dr. Des Quintanilla at 01/22/2022 18:56 Normal [facility] Urinalysis,Automatedon 01-22 Bacteria Many Normal [facility] Comment on above: Order Comment: Relea se to patient->Automatic 21747&Blood Performed By: #### M G #### [place] [address] Mucous Large Normal [facility] Comment on above: Order Comment: Relea se to patient->Automatic 24992&Blood Performed By: #### M G #### [address] [address] RBC (U) [#/Vol] 16.0 /uL Normal 0.0-20.0 [facility] Comment on above: Order Comment: Relea se to patient->Automatic 62348&Blood Performed By: #### M G #### [address] [address] Squamous Epithelial Cells 23 /uL High 0-20 [facility] Comment on above: Order Comment: Relea se to patient->Automatic 82391&Blood Performed By: #### M G #### [address] [address] Transitional Epithelial Cells 3 /uL Normal 0-20 [facility] Comment on above: Order Comment: Relea se to patient->Automatic 18279&Blood Performed By: #### M G #### [address] [address] WBC (U) [#/Vol] 49.0 /uL High 0.0-20.0 [facility] Comment on above: Order Comment: Relea se to patient->Automatic 54265&Blood Performed By: #### M G #### [address] [address] Urinalysis,Completeon 2021 Bilirubin,urine Negative Normal Negative [facility] Comment on above: Order Comment: Relea se to patient->Automatic 95441&Blood Performed By: #### M G #### [address] [address] Character Cloudy Normal [facility] Comment on above: Order Comment: Relea se to patient->Automatic 65842&Blood Performed By: #### M G #### [address] [address] Color (U) Yellow Normal [facility] Comment on above: Order Comment: Relea se to patient->Automatic 02039&Blood Performed By: #### M G #### [address] [address] Glucose Ql (U) Negative Normal Negative [facility] Comment on above: Order Comment: Relea se to patient->Automatic 75661&Blood Performed By: #### M G #### [address] [address] Ketones Ql (U) 2+ mg/dL Abnormal Negative [facility] Comment on above: Order Comment: Relea se to patient->Automatic 62124&Blood Performed By: #### M G #### [address] [address] Leukocyte esterase Test strip Ql (U) 1+ leuk/ul Abnormal Negative [facility] Comment on above: Order Comment: Relea se to patient->Automatic 56105&Blood Performed By: #### M G #### [address] [address] Nitrite Ql (U) Negative Normal Negative [facility] Comment on above: Order Comment: Relea se to patient->Automatic 46919&Blood Performed By: #### M G #### [address] [address] pH, Urine 5.0 Normal 5.0-8.0 [facility] Comment on above: Order Comment: Relea se to patient->Automatic 35056&Blood Performed By: #### M G #### [address] [address] Protein,Ur Negative Normal Neg.-Trace [facility] Comment on above: Order Comment: Relea se to patient->Automatic 41698&Blood Performed By: #### M G #### [address] [address] Specific gravity (U) [Rel density] 1.029 Normal 1.005-1.030 [facility] Comment on above: Order Comment: Relea se to patient->Automatic 00780&Blood Performed By: #### M G #### [address] [address] Urinalysis-Comment - Normal [facility] Comment on above: Order Comment: Relea se to patient->Automatic 13374&Blood Result Comment: Ascorbic Acid is present in this urine sample. This may cause possible interferences resulting in false negative reactions for blood, bilirubin, glucose or nitrite tests. False positive reactions may be seen for reducing substances. Interpret with caution. Performed By: #### M G #### [address] [address] Urobilinogen (U) [Mass/Vol] 0.2 mg/dL Normal Negative [facility] Comment on above: Order Comment: Relea se to patient->Automatic 26110&Blood Performed By: #### M G #### [address] [address] Volume 12 ml Normal 12 [facility] Comment on above: Order Comment: Relea se to patient->Automatic 23928&Blood Performed By: #### M G #### [address] [id number] Urine Cultureon 01-22-2022 Bacteria identified Cx Nom (U) Release to patient->Automatic 24141&Urine-CCMS Urine Culture: 10,000 - 50,000 CFU/ml of Normal Skin/urogenital jayden Source: URNCC Collected: 01/22/22 20:02 Site: Received : 01/22/22 21:06 Urine Culture FINAL 01/24/22 08:19 10,000 - 50,000 CFU/ml of Normal Skin/urogenital jayden present Normal [facility] Comment on above: Performed By: #### C BC #### [address] [id number] eGFRon 01-22-2022 eGFR see below Normal [facility] Comment on above: Order Comment: Relea se to patient->Automatic 47498&Blood Result Comment: Refe rence range: > 3 months: >90 ml/min/1.73m^2 Ref. Range change effective 02/10/2018 Unable to calculate EGFR; height not available. - To manually calculate eGFR use Bedside Marquez equation. - (0.41 X height in centimeters)/serum creatinine mg/dL Performed By: #### E GFR #### [address] [address] .Urinalysis Microscopic (AO) on 01-13-2022 UA Bacteria 2+ /hpf Abnormal [facility] ([place] Comment on above: Performed By: #### P REGU, UA, UAMICAO #### [address] [place], [place] [address] UA RBC None Seen Normal None Seen [facility] ([place] Comment on above: Performed By: #### P REGU, UA, UAMICAO #### [address] [place], [place] [address] UA Squam Epithelial 10-15 Abnormal None Seen [facility] ([place]) Comment on above: Performed By: #### P REGU, UA, UAMICAO #### [address] [address] UA Transitional Epithelial 0-5 Abnormal [facility] ([place] Comment on above: Performed By: #### P REGU, UA, UAMICAO #### [place] [place] [place], [place] [address] UA WBC 5-10 Abnormal None Seen [facility] ([place] Comment on above: Performed By: #### P REGU, UA, UAMICAO #### [address] [place], [place] [address] LABORATORYOrdered By: Radha Wheat on 01-13-2022 HCG [...] HCG ( test) Ql (U) Negative Normal [facility] ([place] Comment on above: Performed By: #### P REGU, UA, UAMICAO #### [address] [address] test (u) int Not detected Invalid Interpretation Code [facility] ([place] Comment on above: Performed By: #### P REGU, UA, UAMICAO #### [address] [address] UAon 01-13-2022 Color (U) Yellow Normal [facility] ([place] Comment on above: Performed By: #### P REGU, UA, UAMICAO #### [address] [address] Glucose (U) [Mass/Vol] Negative Normal Negative [facility] ([place]) Comment on above: Performed By: #### P REGU, UA, UAMICAO #### [address] [address] Ketones Ql (U) Negative Normal Negative [facility] ([place] Comment on above: Performed By: #### P REGU, UA, UAMICAO #### [address] [address] UA Appear Cloudy Abnormal Clear [facility] ([place] Comment on above: Performed By: #### P REGU, UA, UAMICAO #### [address] [address] UA Blood Trace Abnormal Negative [facility] ([place] Comment on above: Performed By: #### P REGU, UA, UAMICAO #### [place] [address] UA Leuk Est Small Abnormal Negative [facility] ([place] Comment on above: Performed By: #### P REGU, UA, UAMICAO #### [place] [address] UA Nitrite Negative Normal Negative [facility] ([place] Comment on above: Performed By: #### P REGU, UA, UAMICAO #### [place] [address] UA pH 6.5 Normal 5.0 - 8.0 [facility] ([place] Comment on above: Performed By: #### P REGU, UA, UAMICAO #### [place] [address] UA Protein Negative Normal Negative [facility] ([place] Comment on above: Performed By: #### P REGU, UA, UAMICAO #### [place] [address] UA Spec Grav 1.010 Abnormal 1.015-1.025 [facility] ([place] Comment on above: Performed By: #### P REGU, UA, UAMICAO #### [place] [address] UA Specimen Type Clean Catch Normal [facility] ([place] Comment on above: Performed By: #### P REGU, UA, UAMICAO #### [place] [address] UA Urobilinogen 0.2 E.U./dL Normal 0.2-1.0 [facility] ([place] Comment on above: Performed By: #### P REGU, UA, UAMICAO #### [place] [address] Urobilinogen (U) [Mass/Vol] Negative Normal Negative [facility] ([place] Comment on above: Performed By: #### P REGU, UA, UAMICAO #### [address] [address] LABORATORYOrdered By: Marty Cloud on 12-16-2021 Blood Glucose Interventions Notify physician (12/16/21 3:15 PM) [facility] Work Phone: Blood Glucose Testing Reason Routine (12/16/21 3:15 PM) [facility] Work Phone: Glucose [Mass/Vol] 90 mg/dL Invalid Interpretation Code 70 - 110 mg/dL [facility] Work Phone: Time of Stated Blood Glucose [id number] [facility] Work Phone: .Auto Diffon 10-19-2021 Basophil, Absolute 0.10 10 3/mcL Normal 0.00-0.19 [facility] ([place]) Comment on above: Performed By: #### P REGU, UA, UAMICAO #### [address] [address] Basophils/100 WBC (Bld) 1.3 % Normal 0.0-2.5 A [facility] ([place]) Comment on above: Performed By: #### P REGU, UA, UAMICAO #### [address] [address] Eosinophil, Absolute 1.60 10 3/mcL High 0.00-0.40 A [facility] ([place]) Comment on above: Performed By: #### P REGU, UA, UAMICAO #### [address] [address] Eosinophils/100 WBC (Bld) 19.1 % High 0.0-7.0 [facility] ([place] Comment on above: Performed By: #### P REGU, UA, UAMICAO #### [address] [address] Lymphocyte, Absolute 2.50 10 3/mcL Normal 0.77-3.85 A [facility] ([place]) Comment on above: Performed By: #### P REGU, UA, UAMICAO #### [address] [address] Lymphocytes/100 WBC (Bld) 29.3 % Normal 10.0-50.0 [facility] ([place] Comment on above: Performed By: #### P REGU, UA, UAMICAO #### [address] [address] Monocyte, Absolute 0.60 10 3/mcL Normal 0.15-1.00 [facility] ([place] Comment on above: Performed By: #### P REGU, UA, UAMICAO #### [address] [address] Monocytes/100 WBC (Bld) 6.6 % Normal 1.7-13.0 A [facility] ([place]) Comment on above: Performed By: #### P REGU, UA, UAMICAO #### [address] [address] Neutrophils/100 WBC (Bld) 43.7 % Normal 37.0-80.0 [facility] ([place] Comment on above: Performed By: #### P REGU, UA, UAMICAO #### [address] [address] .GFRon 10-19-2021 GFR 124 ml/min/1.73sqm Normal [facility] ([place] Comment on above: Result Comment: GFR Population [...] By: #### P REGU, UA, UAMICAO #### [address] [address] GFR Non- 102 ml/min/1.73sqm Normal [facility] ([place] Comment on above: Result Comment: GFR Population [...] By: #### P REGU, UA, UAMICAO #### [address] [address] .NEUABSon 10-19-2021 Neutrophil, Absolute 3.70 10 3/mcL Normal 2.85-6.16 A [facility] ([place]) Comment on above: Performed By: #### P REGU, UA, UAMICAO #### [address] [address] .Urinalysis Microscopic (AO) on 10-19-2021 UA Bacteria Trace Abnormal [facility] ([place] Comment on above: Performed By: #### P REGU, UA, UAMICAO #### [address] [address] UA RBC None Seen Normal None Seen [facility] ([place] Comment on above: Performed By: #### P REGU, UA, UAMICAO #### [address] [address] UA Squam Epithelial 0-5 Abnormal None Seen [facility] ([place] Comment on above: Performed By: #### P REGU, UA, UAMICAO #### [address] [address] UA WBC 0-5 Abnormal None Seen [facility] ([place] Comment on above: Performed By: #### P REGU, UA, UAMICAO #### [address] [address] CBCon 10-19-2021 Erythrocyte distribution width (RBC) [Ratio] 12.7 % Normal 11.5-14.5 [facility] ([place] Comment on above: Performed By: #### C BC, ADIFF, ANEU, LIP, CMP, GFR #### [place] [address] Hematocrit (Bld) [Volume fraction] 43.0 % Normal 37.0-47.0 [facility] ([place] Comment on above: Performed By: #### C BC, ADIFF, ANEU, LIP, CMP, GFR #### [place] [address] Hgb 14.7 G/dL Normal 12.0-16.0 [facility] ([place] Comment on above: Performed By: #### C BC, ADIFF, ANEU, LIP, CMP, GFR #### [address] [address] MCH (RBC) [Entitic mass] 29.9 pg Normal 27.0-31.2 [facility] ([place] Comment on above: Performed By: #### C BC, ADIFF, ANEU, LIP, CMP, GFR #### [place] [address] MCHC 34.1 G/dL Normal 33.0-37.0 [facility] ([place] Comment on above: Performed By: #### C BC, ADIFF, ANEU, LIP, CMP, GFR #### [place] [address] MCV (RBC) [Entitic vol] 87.9 fL Normal 80.0-94.0 A [facility] ([place] Comment on above: Performed By: #### C BC, ADIFF, ANEU, LIP, CMP, GFR #### [address] [address] Platelet 311 10 3/mcL Normal 130-400 [facility] ([place] Comment on above: Performed By: #### C BC, ADIFF, ANEU, LIP, CMP, GFR #### [address] [address] Platelet mean volume (Bld) [Entitic vol] 7.9 fL Normal 7.4-10.4 [facility] ([place] Comment on above: Performed By: #### C BC, ADIFF, ANEU, LIP, CMP, GFR #### [place] [address] RBC 4.90 10 6/mcL Normal 4.20-5.40 [facility] ([place] Comment on above: Performed By: #### C BC, ADIFF, ANEU, LIP, CMP, GFR #### [place] [address] WBC 8.50 10 3/mcL Normal 4.60-10.80 [facility] ([place] Comment on above: Performed By: #### C BC, ADIFF, ANEU, LIP, CMP, GFR #### [address] [address] CMPon 10-19-2021 Albumin Level 4.5 G/dL Normal 3.5-5.0 [facility] [place] Comment on above: Performed By: #### P REGU, UA, UAMICAO #### [address] [address] Albumin/Globulin [Mass ratio] 1.3 {ratio} Normal 1.1-2.5 [facility] [place] Comment on above: Performed By: #### P REGU, UA, UAMICAO #### [address] [address] ALP [Catalytic activity/Vol] 100 U/L Normal 40-135 [facility] [place] Comment on above: Performed By: #### P REGU, UA, UAMICAO #### [address] [address] ALT [Catalytic activity/Vol] 33 U/L Normal 14-59 [facility] [place] Comment on above: Performed By: #### P REGU, UA, UAMICAO #### [address] [address] AST [Catalytic activity/Vol] 19 U/L Normal 10-40 [facility] ([place] Comment on above: Performed By: #### P REGU, UA, UAMICAO #### [address] [address] Bili Total 0.6 mg/dL Normal 0.2-1.0 [facility] [place] Comment on above: Result Comment: Use of this assay is not recommended for patients undergoing treatment with eltrombopag due to the potential for falsely elevated results. Performed By: #### P REGU, UA, UAMICAO #### [address] [address] BUN/Creatinine Ratio 11 ratio Normal 7-27 [facility] ([place]) Comment on above: Performed By: #### P REGU, UA, UAMICAO #### [address] [address] Calcium [Mass/Vol] 9.4 mg/dL Normal 8.4-10.2 [facility] ([place]) Comment on above: Performed By: #### P REGU, UA, UAMICAO #### [address] [address] Chloride [Moles/Vol] 103 mmol/L Normal 98-107 [facility] ([place] Comment on above: Performed By: #### P REGU, UA, UAMICAO #### [address] [address] CO2 [Moles/Vol] 25 mmol/L Normal 22-29 [facility] ([place] Comment on above: Performed By: #### P REGU, UA, UAMICAO #### [address] [address] Creatinine [Mass/Vol] 0.74 mg/dL Normal 0.55-1.02 [facility] ([place]) Comment on above: Performed By: #### P REGU, UA, UAMICAO #### [address] [address] Electrolyte Balance 11.0 mEq/L Normal [facility] ([place]) Comment on above: Performed By: #### P REGU, UA, UAMICAO #### [address] [address] Globulin 3.4 G/dL Normal [facility] ([place] Comment on above: Performed By: #### P REGU, UA, UAMICAO #### [address] [address] Glucose [Mass/Vol] 87 mg/dL Normal 70-105 [facility] ([place] Comment on above: Performed By: #### P REGU, UA, UAMICAO #### [address] [address] Potassium [Moles/Vol] 3.7 mmol/L Normal 3.5-5.1 [facility] ([place] Comment on above: Performed By: #### P REGU, UA, UAMICAO #### [address] [address] Sodium [Moles/Vol] 139 mmol/L Normal 136-145 [facility] ([place] Comment on above: Performed By: #### P REGU, UA, UAMICAO #### [address] [address] Total Protein 7.9 G/dL Normal 6.4-8.2 [facility] [place] Comment on above: Performed By: #### P REGU, UA, UAMICAO #### [address] [address] Urea nitrogen [Mass/Vol] 8 mg/dL Normal 7-18 [facility] ([place] Comment on above: Performed By: #### P REGU, UA, UAMICAO #### [place] [address] [place], [place] [address] CT ABD/PELVIS W/ IV CONTRAST ONLYon 10-19-2021 [...] PM Ordering Provider: NAMITA BARBOZA [facility] ([place]) LABORATORYOrdered By: Leidy Mcgill on 10-19-2021 Albumin [...] 10-19-2021 Lipase Level 95 U/L Normal 73-393 [facility] ([place] Comment on above: Performed By: #### P REGU, UA, UAMICAO #### [place] [id number] PREGUon 10-19-2021 HCG ( test) Ql (U) Negative Normal [facility] ([place] Comment on above: Performed By: #### P REGU, UA, UAMICAO #### [place] [address] test (u) int Not detected Invalid Interpretation Code [facility] ([place] Comment on above: Performed By: #### P REGU, UA, UAMICAO #### [place] [address] UAon 10-19-2021 Color (U) Yellow Normal [facility] ([place] Comment on above: Performed By: #### P REGU, UA, UAMICAO #### [place] [address] Glucose (U) [Mass/Vol] Negative Normal Negative [facility] ([place]) Comment on above: Performed By: #### P REGU, UA, UAMICAO #### [place] [address] Ketones Ql (U) Negative Normal Negative [facility] ([place] Comment on above: Performed By: #### P REGU, UA, UAMICAO #### [place] [address] UA Appear Slightly Cloudy Abnormal Clear [facility] ([place] Comment on above: Performed By: #### P REGU, UA, UAMICAO #### [place] [address] UA Blood Negative Normal Negative [facility] ([place] Comment on above: Performed By: #### P REGU, UA, UAMICAO #### [address] [address] UA Leuk Est Small Abnormal Negative [facility] ([place] Comment on above: Performed By: #### P REGU, UA, UAMICAO #### [address] [address] UA Nitrite Negative Normal Negative [facility] ([place] Comment on above: Performed By: #### P REGU, UA, UAMICAO #### [address] [address] UA pH 7.0 Normal 5.0 - 8.0 [facility] ([place] Comment on above: Performed By: #### P REGU, UA, UAMICAO #### [address] [address] UA Protein Negative Normal Negative [facility] ([place] Comment on above: Performed By: #### P REGU, UA, UAMICAO #### [address] [address] UA Spec Grav 1.020 Normal 1.015-1.025 [facility] ([place] Comment on above: Performed By: #### P REGU, UA, UAMICAO #### [address] [address] UA Specimen Type Clean Catch Normal [facility] ([place] Comment on above: Performed By: #### P REGU, UA, UAMICAO #### [address] [address] UA Urobilinogen 0.2 E.U./dL Normal 0.2-1.0 [facility] ([place] Comment on above: Performed By: #### P REGU, UA, UAMICAO #### [address] [address] Urobilinogen (U) [Mass/Vol] Negative Normal Negative [facility] ([place] Comment on above: Performed By: #### P REGU, UA, UAMICAO #### [place] [address] OVAPon 04-04-2021 Ova & Parasite exam See Results Below Normal [facility] ([place] Comment on above: Result Comment: Spec imen Desc: Stool Sp. Request/Comment: Specimen received in Ova and Parasite Kit. Culture Result No parasites seen. Report Status FINAL 04/04/2021 Performed By: [facility] [address] [place] [address] Parts Coordinator: Kleber Gutierrez III#: [id number] Phone#: Performed By: #### O VAP #### [address] [address] .Auto Diffon 03-25-2021 Basophil, Absolute 0.10 10 3/mcL Normal 0.00-0.19 [facility] ([place]) Comment on above: Performed By: #### C BC, ADIFF, ANEU, LIP, CMP #### [address] [address] Basophils/100 WBC (Bld) 0.8 % Normal 0.0-2.5 A [facility] ([place]) Comment on above: Performed By: #### C BC, ADIFF, ANEU, LIP, CMP #### [address] [address] Eosinophil, Absolute 0.60 10 3/mcL High 0.00-0.40 A [facility] ([place]) Comment on above: Performed By: #### C BC, ADIFF, ANEU, LIP, CMP #### [address] [address] Eosinophils/100 WBC (Bld) 6.3 % Normal 0.0-7.0 [facility] ([place] Comment on above: Performed By: #### C BC, ADIFF, ANEU, LIP, CMP #### [address] [address] Lymphocyte, Absolute 2.40 10 3/mcL Normal 0.77-3.85 A [facility] ([place]) Comment on above: Performed By: #### C BC, ADIFF, ANEU, LIP, CMP #### [address] [address] Lymphocytes/100 WBC (Bld) 26.5 % Normal 10.0-50.0 [facility] ([place]) Comment on above: Performed By: #### C BC, ADIFF, ANEU, LIP, CMP #### [place] [address] Monocyte, Absolute 0.80 10 3/mcL Normal 0.15-1.00 [facility] ([place] Comment on above: Performed By: #### C BC, ADIFF, ANEU, LIP, CMP #### [place] [address] Monocytes/100 WBC (Bld) 8.7 % Normal 1.7-13.0 A [facility] ([place]) Comment on above: Performed By: #### C BC, ADIFF, ANEU, LIP, CMP #### [place] [address] Neutrophils/100 WBC (Bld) 57.7 % Normal 37.0-80.0 [facility] ([place] Comment on above: Performed By: #### C BC, ADIFF, ANEU, LIP, CMP #### [place] [address] .NEUABSon 03-25-2021 Neutrophil, Absolute 5.20 10 3/mcL Normal 2.85-6.16 A [facility] ([place]) Comment on above: Performed By: #### C BC, ADIFF, ANEU, LIP, CMP #### [place] [address] .Urinalysis Microscopic (AO) on 03-25-2021 UA Amorphus 1+ /hpf Normal [facility] ([place] Comment on above: Performed By: #### P REGU, UA, UAMICAO #### [place] [address] UA Bacteria 2+ /hpf Abnormal [facility] ([place] Comment on above: Performed By: #### P REGU, UA, UAMICAO #### [place] [address] UA RBC 0-5 Abnormal None Seen [facility] ([place] Comment on above: Performed By: #### P REGU, UA, UAMICAO #### [address] [address] UA Squam Epithelial LOADED Abnormal None Seen [facility] ([place]) Comment on above: Performed By: #### P REGU, UA, UAMICAO #### [address] [address] UA WBC 5-10 Abnormal None Seen [facility] ([place] Comment on above: Performed By: #### P REGU, UA, UAMICAO #### [address] [address] CBCon 03-25-2021 Erythrocyte distribution width (RBC) [Ratio] 12.9 % Normal 11.5-14.5 [facility] ([place] Comment on above: Performed By: #### C BC, ADIFF, ANEU, LIP, CMP #### [place] [address] Hematocrit (Bld) [Volume fraction] 43.6 % Normal 37.0-47.0 [facility] ([place] Comment on above: Performed By: #### C BC, ADIFF, ANEU, LIP, CMP #### [place] [address] Hgb 14.9 G/dL Normal 12.0-16.0 [facility] ([place] Comment on above: Performed By: #### C BC, ADIFF, ANEU, LIP, CMP #### [place] [address] MCH (RBC) [Entitic mass] 30.7 pg Normal 27.0-31.2 [facility] ([place] Comment on above: Performed By: #### C BC, ADIFF, ANEU, LIP, CMP #### [place] [address] MCHC 34.3 G/dL Normal 33.0-37.0 [facility] ([place] Comment on above: Performed By: #### C BC, ADIFF, ANEU, LIP, CMP #### [place] [address] MCV (RBC) [Entitic vol] 89.5 fL Normal 80.0-94.0 A [facility] ([place]) Comment on above: Performed By: #### C BC, ADIFF, ANEU, LIP, CMP #### [address] [address] Platelet 301 10 3/mcL Normal 130-400 [facility] ([place] Comment on above: Performed By: #### C BC, ADIFF, ANEU, LIP, CMP #### [address] [address] Platelet mean volume (Bld) [Entitic vol] 8.0 fL Normal 7.4-10.4 [facility] ([place] Comment on above: Performed By: #### C BC, ADIFF, ANEU, LIP, CMP #### [address] [address] RBC 4.87 10 6/mcL Normal 4.20-5.40 [facility] ([place] Comment on above: Performed By: #### C BC, ADIFF, ANEU, LIP, CMP #### [address] [address] WBC 9.00 10 3/mcL Normal 4.60-10.80 [facility] ([place] Comment on above: Performed By: #### C BC, ADIFF, ANEU, LIP, CMP #### [address] [address] CMPon 03-25-2021 Albumin Level 4.3 G/dL Normal 3.5-5.0 [facility] ([place] Comment on above: Performed By: #### C BC, ADIFF, ANEU, LIP, CMP #### [address] [address] Albumin/Globulin [Mass ratio] 1.3 {ratio} Normal 1.1-2.5 [facility] ([place] Comment on above: Performed By: #### C BC, ADIFF, ANEU, LIP, CMP #### [address] [address] ALP [Catalytic activity/Vol] 105 U/L Low 135-450 [facility] ([place] Comment on above: Performed By: #### C BC, ADIFF, ANEU, LIP, CMP #### [address] [address] ALT [Catalytic activity/Vol] 17 U/L Normal 14-59 [facility] ([place] Comment on above: Performed By: #### C BC, ADIFF, ANEU, LIP, CMP #### [address] [address] AST [Catalytic activity/Vol] 9 U/L Low 10-40 [facility] ([place] Comment on above: Performed By: #### C BC, ADIFF, ANEU, LIP, CMP #### [address] [address] Bili Total 0.4 mg/dL Normal 0.2-1.0 [facility] ([place] Comment on above: Result Comment: Use of this assay is not recommended for patients undergoing treatment with eltrombopag due to the potential for falsely elevated results. Performed By: #### C BC, ADIFF, ANEU, LIP, CMP #### [address] [address] BUN/Creatinine Ratio 10 ratio Normal 7-27 [facility] ([place]) Comment on above: Performed By: #### C BC, ADIFF, ANEU, LIP, CMP #### [address] [address] Calcium [Mass/Vol] 8.8 mg/dL Normal 8.4-10.2 [facility] ([place]) Comment on above: Performed By: #### C BC, ADIFF, ANEU, LIP, CMP #### [address] [address] Chloride [Moles/Vol] 105 mmol/L Normal 98-107 [facility] ([place] Comment on above: Performed By: #### C BC, ADIFF, ANEU, LIP, CMP #### [address] [address] CO2 [Moles/Vol] 25 mmol/L Normal 22-29 [facility] ([place] Comment on above: Performed By: #### C BC, ADIFF, ANEU, LIP, CMP #### [address] [address] Creatinine [Mass/Vol] 1.01 mg/dL Normal 0.55-1.02 [facility] ([place] Comment on above: Performed By: #### C BC, ADIFF, ANEU, LIP, CMP #### [address] [address] Electrolyte Balance 12.0 mEq/L Normal [facility] ([place] Comment on above: Performed By: #### C BC, ADIFF, ANEU, LIP, CMP #### [address] [address] Globulin 3.3 G/dL Normal [facility] ([place] Comment on above: Performed By: #### C BC, ADIFF, ANEU, LIP, CMP #### [place] [id number] Glucose [Mass/Vol] 100 mg/dL Normal 70-105 [facility] ([place]) Comment on above: Performed By: #### C BC, ADIFF, ANEU, LIP, CMP #### [address] [address] Potassium [Moles/Vol] 3.4 mmol/L Low 3.5-5.1 [facility] ([place] Comment on above: Performed By: #### C BC, ADIFF, ANEU, LIP, CMP #### [address] [address] Sodium [Moles/Vol] 142 mmol/L Normal 136-145 [facility] ([place] Comment on above: Performed By: #### C BC, ADIFF, ANEU, LIP, CMP #### [address] [address] Total Protein 7.6 G/dL Normal 6.4-8.2 [facility] ([place] Comment on above: Performed By: #### C BC, ADIFF, ANEU, LIP, CMP #### [address] [place] [address] Urea nitrogen [Mass/Vol] 10 mg/dL Normal 7-18 [facility] ([place] Comment on above: Performed By: #### C BC, ADIFF, ANEU, LIP, CMP #### [address] [address] LIPon 03-25-2021 Lipase Level 92 U/L Normal 73-393 [facility] ([place] Comment on above: Performed By: #### C BC, ADIFF, ANEU, LIP, CMP #### [address] [address] PREGUon 03-25-2021 HCG ( test) Ql (U) Negative Normal [facility] ([place] Comment on above: Performed By: #### P REGU, UA, UAMICAO #### [address] [address] test (u) int Not detected Invalid Interpretation Code [facility] ([place] Comment on above: Performed By: #### P REGU, UA, UAMICAO #### [address] [address] UAon 03-25-2021 Color (U) Yellow Normal [facility] ([place] Comment on above: Performed By: #### P REGU, UA, UAMICAO #### [address] [address] Glucose (U) [Mass/Vol] Negative Normal Negative [facility] ([place]) Comment on above: Performed By: #### P REGU, UA, UAMICAO #### [address] [address] Ketones Ql (U) Negative Normal Negative [facility] ([place] Comment on above: Performed By: #### P REGU, UA, UAMICAO #### [address] [address] UA Appear Clear Normal Clear [facility] ([place] Comment on above: Performed By: #### P REGU, UA, UAMICAO #### [place] [address] UA Blood Negative Normal Negative [facility] ([place] Comment on above: Performed By: #### P REGU, UA, UAMICAO #### [address] [address] UA Leuk Est Small Abnormal Negative [facility] ([place] Comment on above: Performed By: #### P REGU, UA, UAMICAO #### [place] [address] UA Nitrite Negative Normal Negative [facility] ([place] Comment on above: Performed By: #### P REGU, UA, UAMICAO #### [place] [address] UA pH 8.5 Abnormal 5.0 - 8.0 [facility] ([place] Comment on above: Performed By: #### P REGU, UA, UAMICAO #### [place] [address] UA Protein Negative Normal Negative [facility] ([place] Comment on above: Performed By: #### P REGU, UA, UAMICAO #### [place] [address] UA Spec Grav 1.020 Normal 1.015-1.025 [facility] ([place] Comment on above: Performed By: #### P REGU, UA, UAMICAO #### [place] [address] UA Specimen Type Clean Catch Normal [facility] ([place] Comment on above: Performed By: #### P REGU, UA, UAMICAO #### [address] [address] UA Urobilinogen 1.0 E.U./dL Normal 0.2-1.0 [facility] ([place] Comment on above: Performed By: #### P REGU, UA, UAMICAO #### [place] [address] Urobilinogen (U) [Mass/Vol] Negative Normal Negative [facility] ([place] Comment on above: Performed By: #### P REGU, UA, UAMICAO #### [place] [address] [place], [place] [address] Influenza virus A and B and SARS-CoV-2 (COVID-19) Ag panel - Upper respiratory specim SARS-CoV-2 & FLU Antigen (Rapid) Influenzae B [facility] Work Phone: Vital Signs Date Time Vital Sign Value Performing Clinician Facility 04-08-2025 08:43-0400 Body height 144.[address] Leidy De Paz DO Work Phone: 0(638)[phone] [place] [address] 04-08-2025 08:37-0400 Body mass index (BMI) [Ratio] 26.2 kg/m2 Dr. Leidy De Paz DO Work Phone: 7(179)[phone] [place] [address] 04-08-2025 08:37-0400 Body weight 54.[address] Leidy De Paz DO Work Phone: 5(929)[phone] [place] [address] 04-08-2025 08:37-0400 Diastolic blood pressure 73 mm[Hg] Dr. Leidy De Paz DO Work Phone: 2(194)[phone] [place] [address] 04-08-2025 08:37-0400 Systolic blood pressure 108 mm[Hg] Dr. Leidy De Paz DO Work Phone: 8(866)[phone] [place] [address] 01-07-2025 08:11-0500 Body mass index (BMI) [Ratio] 26.4 kg/m2 Dr. Leidy De Paz DO Work Phone: 1(602)[phone] [place] [address] 01-07-2025 08:11-0500 Body weight 55.[address] Leidy De Paz DO Work Phone: 2(334)[phone] [place] [address] 01-07-2025 08:11-0500 Diastolic blood pressure 68 mm[Hg] Dr. Leidy De Paz DO Work Phone: 4(730)[phone] [place] [address] 01-07-2025 08:11-0500 Systolic blood pressure 101 mm[Hg] Dr. Leidy De Paz DO Work Phone: [facility] 03-18-2023 13:44-0400 Body mass index (BMI) [Percentile] Per age and sex 80.2 % Dr. Leidy De Paz Work Phone: [facility] 03-18-2023 13:44-0400 Body mass index (BMI) [Ratio] 25.3 kg/m2 Dr. Leidy De Paz Work Phone: [facility] 03-18-2023 13:44-0400 Body weight 53.[address] Leidy De Paz Work Phone: [facility] 03-18-2023 13:44-0400 Diastolic blood pressure 78 mm[Hg] Dr. Leidy De Paz Work Phone: [facility] 03-18-2023 13:44-0400 Systolic blood pressure 120 mm[Hg] Dr. Leidy De Paz Work Phone: [facility] 11-25-2022 03:59-0500 Heart rate 86 /min [facility] 11-25-2022 03:59-0500 Respiratory rate 16 /min [facility] 11-25-2022 03:59-0500 SaO2% (BldA) [Mass fraction] 99 % [facility] 11-25-2022 00:12-0500 Body height 144.78 cm [facility] Work Phone: 11-25-2022 00:12-0500 Body mass index (BMI) [Percentile] Per age and sex 78.1 % [facility] 11-25-2022 00:12-0500 Body mass index (BMI) [Ratio] 24.8 kg/m2 [facility] 11-25-2022 00:12-0500 Body temperature 99.2 [degF] [facility] 11-25-2022 00:12-0500 Body weight 52.16 kg [facility] 11-25-2022 00:12-0500 Diastolic blood pressure 87 mm[Hg] [facility] 11-25-2022 00:12-0500 Systolic blood pressure 110 mm[Hg] [facility] 09-21-2022 14:47-0400 Body height 144.78 cm [facility] Work Phone: 09-21-2022 14:47-0400 Body mass index (BMI) [Percentile] Per age and sex 83.3 % [facility] Work Phone: 09-21-2022 14:47-0400 Body mass index (BMI) [Ratio] 25.8 kg/m2 [facility] Work Phone: 09-21-2022 14:47-0400 Body temperature 97.2 [degF] [facility] Work Phone: 09-21-2022 14:47-0400 Body weight 54.1 kg [facility] Work Phone: 09-21-2022 14:47-0400 Diastolic blood pressure 83 mm[Hg] [facility] Work Phone: 09-21-2022 14:47-0400 Heart rate 92 /min [facility] Work Phone: 09-21-2022 14:47-0400 Respiratory rate 14 /min [facility] Work Phone: 09-21-2022 14:47-0400 SaO2% (BldA) [Mass fraction] 100 % [facility] Work Phone: 09-21-2022 14:47-0400 Systolic blood pressure 120 mm[Hg] [facility] Work Phone: 04-26-2022 15:07-0400 Diastolic blood pressure 80 mm[Hg] Ladarius Gutierrez MD Work Phone: [facility] 04-26-2022 15:07-0400 Heart rate 70 /min Ladarius Gutierrez MD Work Phone: [facility] 04-26-2022 15:07-0400 Respiratory rate 16 /min Ladarius Gutierrez MD Work Phone: [facility] 04-26-2022 15:07-0400 SaO2% (BldA) [Mass fraction] 98 % Ladarius Gutierrez MD Work Phone: [facility] 04-26-2022 15:07-0400 Systolic blood pressure 110 mm[Hg] Ladarius Gutierrez MD Work Phone: [facility] 04-26-2022 14:09-0400 Body temperature 97.3 [degF] Ladarius Gutierrez MD Work Phone: [facility] 04-26-2022 13:21-0400 Body height 147.3 cm Ladarius Gutierrez MD Work Phone: [facility] 04-26-2022 13:21-0400 Body mass index (BMI) [Percentile] Per age and sex 63.98 % Ladarius Gutierrez MD Work Phone: [facility] 04-26-2022 13:21-0400 Body weight 49.44 kg Ladarius Gutierrez MD Work Phone: [facility] 04-13-2022 13:20-0400 Body height 146.1 cm Liliya Jared PA-C Work Phone: [facility] 04-13-2022 13:20-0400 Body mass index (BMI) [Percentile] Per age and sex 74.14 % Liliya Jared PA-C Work Phone: [facility] 04-13-2022 13:20-0400 Body weight 51.17 kg Liliya Jared PA-C Work Phone: [facility] 04-13-2022 13:20-0400 Diastolic blood pressure 70 mm[Hg] Liliya Jared PA-C Work Phone: [facility] 04-13-2022 13:20-0400 Heart rate 94 /min Liliya Jared PA-C Work Phone: [facility] 04-13-2022 13:20-0400 Systolic blood pressure 108 mm[Hg] Liliya Jared PA-C Work Phone: [facility] 02-25-2022 14:08-0400 Body height 144.78 cm [facility] Work Phone: 02-25-2022 14:08-0400 Body mass index (BMI) [Ratio] 24.3 kg/m2 [facility] Work Phone: 02-25-2022 14:08-0400 Body temperature 97.3 [degF] [facility] Work Phone: 02-25-2022 14:08-0400 Body weight 51 kg [facility] Work Phone: 02-25-2022 14:08-0400 Diastolic blood pressure 72 mm[Hg] [facility] Work Phone: 02-25-2022 14:08-0400 Heart rate 86 /min [facility] Work Phone: 02-25-2022 14:08-0400 Respiratory rate 14 /min [facility] Work Phone: 02-25-2022 14:08-0400 SaO2% (BldA) [Mass fraction] 99 % [facility] Work Phone: 02-25-2022 14:08-0400 Systolic blood pressure 101 mm[Hg] [facility] Work Phone: 01-26-2022 00:15-0500 Diastolic blood pressure 77 mm[Hg] CARLYN MOSQUEDA MD [facility] 01-26-2022 00:15-0500 Heart rate 96 /min CARLYN MOSQUEDA MD [facility] 01-26-2022 00:15-0500 Respiratory rate 19 /min CARLYN MOSQUEDA MD [facility] 01-26-2022 00:15-0500 Systolic blood pressure 111 mm[Hg] CARLYN MOSQUEDA MD [facility] 01-25-2022 23:30-0500 Diastolic blood pressure 84 mm[Hg] CARLYN MOSQUEDA MD [facility] 01-25-2022 23:30-0500 Heart rate 88 /min CARLYN MOSQUEDA MD [facility] 01-25-2022 23:30-0500 Respiratory rate 16 /min CARLYN MOSQUEDA MD [facility] 01-25-2022 23:30-0500 Systolic blood pressure 110 mm[Hg] CARLYN MOSQUEDA MD [facility] 01-25-2022 22:45-0500 Body height 144.8 cm CARLYN MOSQUEDA MD [facility] 01-25-2022 22:45-0500 Body temperature 98.24 [degF] CARLYN MOSQUEDA MD [facility] 01-25-2022 22:45-0500 Body weight 50 kg CARLYN MOSQUEDA MD [facility] 01-25-2022 22:45-0500 Diastolic blood pressure 83 mm[Hg] CARLYN MOSQUEDA MD [facility] 01-25-2022 22:45-0500 Heart rate 98 /min CARLYN MOSQUEDA MD [facility] 01-25-2022 22:45-0500 Respiratory rate 26 /min CARLYN MOSQUEDA MD [facility] 01-25-2022 22:45-0500 Systolic blood pressure 114 mm[Hg] CARLYN MOSQUEDA MD [facility] 01-13-2022 18:51-0500 Body temperature 98.06 [degF] EWELINA CANDELARIA MD [facility] 01-13-2022 18:51-0500 Diastolic blood pressure 80 mm[Hg] EWELINA CANDELARIA MD [facility] 01-13-2022 18:51-0500 Heart rate 87 /min EWELINA CANDELARIA MD [facility] 01-13-2022 18:51-0500 Respiratory rate 18 /min EWELINA CANDELARIA MD [facility] 01-13-2022 18:51-0500 Systolic blood pressure 116 mm[Hg] EWELINA CANDELARIA MD [facility] 12-16-2021 14:48-0500 Body temperature 97.88 [degF] EWELINA CANDELARIA MD [facility] 12-16-2021 14:48-0500 Diastolic blood pressure 89 mm[Hg] EWELINA CANDELARIA MD [facility] 12-16-2021 14:48-0500 Heart rate 95 /min EWELINA CANDELARIA MD [facility] 12-16-2021 14:48-0500 Respiratory rate 20 /min EWELINA CANDELARIA MD [facility] 12-16-2021 14:48-0500 Systolic blood pressure 134 mm[Hg] EWELINA CANDELARIA MD [facility] 10-19-2021 14:53-0500 Body height 147.3 cm NAMITA CRUZKA DO [facility] 10-19-2021 14:53-0500 Body temperature 97.88 [degF] NAMITA DURESKA DO [facility] 10-19-2021 14:53-0500 Body weight 52.9 kg NAMITA DURESKA DO [facility] 10-19-2021 14:53-0500 Diastolic blood pressure 69 mm[Hg] NAMITA DURESKA DO [facility] 10-19-2021 14:53-0500 Heart rate 95 /min NAMITA DURESKA DO [facility] 10-19-2021 14:53-0500 Respiratory rate 16 /min NAMITA DURESKA DO [facility] 10-19-2021 14:53-0500 Systolic blood pressure 115 mm[Hg] NAMITA DURESKA DO [facility] Encounters Encounter Date Encounter Type Care Provider Facility Start: 09-14-2025 End: 09-14-2025 ambulatory Leidy De Paz Facility:[facility] Start: 09-14-2025 End: 09-14-2025 ambulatory Leatha Bassett NP Facility:[facility] Start: 05-27-2025 ambulatory Leidy De Paz Facility :[facility] Start: 04-08-2025 End: 04-08-2025 Patient encounter procedure Carmen HAMMOND -[facility] Work Phone: Start: 04-08-2025 End: 04-08-[address] Leidy De Paz DO Work Phone: [facility] Work Phone: Start: 04-08-2025 End: 04-08-2025 ambulatory Carmen Stack Facility:[facility] Start: 01-07-2025 End: 01-07-2025 Patient encounter procedure Carmen HAMMOND -[facility] Work Phone: Start: 01-07-2025 End: 01-07-2025 ambulatory Leidy De Paz Facility:[facility] Start: 11-26-2024 End: 11-26-2024 ambulatory Carmen Stack Facility:[facility] Start: 11-26-2024 End: 11-26-2024 ambulatory Carmen Stack Facility:[facility] Start: 03-18-2023 End: 03-18-[address] Leidy De Paz Work Phone: [facility] Work Phone: Start: 03-18-2023 End: 03-18-[address] Leidy De Paz Work Phone: [facility] Specimen Start: 03-18-2023 End: 03-18-[address] Leidy De Paz Work Phone: [facility] Start: 01-11-2023 ambulatory NOMAN FOUNTAIN [facility] Start: 11-25-2022 End: 11-25-2022 Emergency department patient visit [facility] Start: 10-25-2022 End: 10-25-2022 ambulatory TYLER MCCARTNEY [facility] Start: 09-21-2022 End: 09-21-2022 Emergency department patient visit [facility] Start: 08-06-2022 ambulatory LEIDY BURDENKELLY [facility] Start: 04-26-2022 ambulatory Liliya wheeler PA-C Work Phone: [facility] Comment on above: nauseous Start: 04-26-2022 End: 04-26-2022 Subsequent hospital visit by physician Ladarius Gutierrez MD Work Phone: Ambulatory Surgery Comment on above: Chronic idiopathic c onstipation [K59.04] Start: 04-19-2022 ambulatory Ladarius Gutierrez MD Work Phone: Ambulatory Surgery Start: 04-17-2022 End: 04-17-2022 ambulatory LEIDY DE PAZ [facility] Start: 04-13-2022 End: 04-13-2022 Patient encounter procedure Liliya Coleman PA-C Work Phone: [facility] Comment on above: Chronic idiopathic c onstipation (Primary Dx); Generalized abdominal pain; Other fatigue; Heartburn; Nausea Start: 03-02-2022 End: 03-02-2022 ambulatory LEIDY BURDENKELLY [facility] Start: 02-26-2022 End: 02-26-2022 Emergency department patient visit LEIDY Elisabeth [facility] Start: 02-25-2022 End: 02-25-2022 Emergency department patient visit [facility] Start: 02-22-2022 End: 02-22-2022 ambulatory JAYLIN NOGUERA [facility] Start: 02-01-2022 End: 02-01-2022 ambulatory ZIA KEMP [facility] Start: 01-29-2022 End: 01-29-2022 ambulatory SELF REFERRED [facility] Start: 01-25-2022 End: 01-26-2022 Emergency department patient visit CARLYN MOSQUEDA MD [facility] Start: 01-22-2022 End: 01-22-2022 Emergency department patient visit JULIAN GILLIAM [facility] Start: 01-22-2022 End: 01-22-2022 ambulatory SELF REFERRED [facility] Start: 01-13-2022 End: 01-13-2022 Emergency department patient visit EWELINA CANDELARIA MD [facility] Start: 12-16-2021 End: 12-16-2021 Emergency department patient visit EWELINA CANDELARIA MD [facility] Start: 10-19-2021 End: 10-19-2021 Emergency department patient visit NAMITA BARBOZA DO [facility] Procedures Date Procedure Procedure Detail Performing Clinician Start: 04-08-[address] Leidy De Paz DO Work Phone: Start: 04-08-2025 End: 04-08-[address] Leidy wagner DO Work Phone: Start: 04-08-2025 [facility] hepatitis c quant & reverse legal process specialist Dr. Leidy De Paz DO Work Phone: Comment on above: Test [...] above: Order Comment: Release to patient->Autom atic [id number]&Urine Performed By: #### U ACOM #### [address] [address] Start: 01-22-2022 Blood count hemoglobin JULIAN GILLIAM Comment on above: Order Comment: Release to patient->Autom atic [id number]&Blood Performed By: #### M G #### [address] [address] None (qualifier value) NAMITA BARBOZA DO SARS-CoV-2 & FLU Antigen (Rapid) SARS-CoV-2 & FLU Antigen (Rapid) Dr. Leidy De Paz Work Phone: Urine culture Dr. Leidy santana Work Phone: Plan of Treatment Date Care Activity Detail Author Start: 11-25-2022 [facility] Work Phone: Start: 07-19-2022 Influenza vaccination INFLUENZ A (Season Ended) [facility] Start: 04-13-2022 End: 06-13-2022 CELIAC SCREEN WITH REFLEX CELIAC SCREEN WITH REFLEX Lab Routine Chronic idiopathic constipation Other fatigue Generalized abdominal pain Expected: 04/13/2022, Expires: 06/13/2022 [facility] Work Phone: Comment on above: Expected: 04/13/2022 , Expires: 06/13/2022 Start: 2021 CHLAMYDIA SCREENING (18-24) CHLAMYDIA SCREENING (18-24) [facility] Start: 2021 GC (GONORRHEA) SCREE ROSETTE (18-24) GC (GONORRHEA) SCREENING (18-24) [facility] Start: 2021 HEPATITIS C SCREENING HEPATITIS C SC ISAAC [facility] Start: 2021 HIV SCREENING HIV SCREENING [facility] Start: 2019 MENINGOCOCCAL CONJUG ATE (1 - 2-dose series) MENINGOCOCCAL CONJUGATE (1 - 2-dose series) [facility] Start: 2017 PEDS TO ADULT TRANSI TION ANNUAL ASSESSMENT PEDS TO ADULT TRANSITION ANNUAL ASSESSMENT [facility] Start: 2015 Adult depression screening assessment DEPRESSION SCREENING [facility] Start: 2015 PEDS TO ADULT TRANSI TION INITIAL DISCUSSION PEDS TO ADULT TRANSITION INITIAL DISCUSSION [facility] Start: 2014 HPV VACCINE (1 - 2-d ose series) HPV VACCINE (1 - 2-dose series) [facility] Start: 2013 MENINGOCOCCAL B: Consider based on risk (1 of 2 - Risk Bexsero 2-dose series) MENINGOCOCCAL B: Consider based on risk (1 of 2 - Risk Bexsero 2-dose series) [facility] Start: 2010 Urine microalbumin profile DTAP,TDAP,TD (1 - Tdap) [facility] Start: 2008 COVID-19 VACCINE (#1) COVID-19 VACCI NE (#1) [facility] End: 04-30-2023 ADULT [place] ANORECTAL MANOMETRY [facility] ANORECTAL MANOMETRY Endoscopy Routine Chronic idiopathic constipation 1 Occurrences starting 04/30/2022 until 04/30/2023 [facility] Work Phone: Comment on above: 1 Occurrences starti ng 04/30/2022 until 04/30/2023 Bacteria identified in Urine by Culture Urine Culture [facility] Work Phone: End: 04-13-2023 COLONOSCOPY DIAGNOSTIC COLONOSCOPY DIAGNOSTIC Endoscopy Routine Chronic idiopathic constipation Generalized abdominal pain 1 Occurrences starting 04/13/2022 until 04/13/2023 [facility] Work Phone: Comment on above: 1 Occurrences starti ng 04/13/2022 until 04/13/2023 End: 04-13-2023 EGD DIAGNOSTIC EGD DIAGNOSTIC Endoscopy Routine Generalized abdominal pain Heartburn Nausea 1 Occurrences starting 04/13/2022 until 04/13/2023 [facility] Work Phone: Comment on above: 1 Occurrences starti ng 04/13/2022 until 04/13/2023 Patient Education [facility] Work Phone: [facility] Work Phone: SURGICAL PATHOLOGY [facility] Work Phone: Comment on above: Release Upon Cherelle paez for 1 Occurrences starting 04/26/2022, 1 completed [facility] Payers Date Payer Category Payer Private Health Insurance [id number] 2024 Self-pay [id number] 2021 Medicaid [employer] MEDICA[employer] [id number] 2021-Present [phone] [address] [place] [address] Medicaid [id number] 2003 Unknown [id number] 2003 Unknown [id number] 2.16840.1.004240.3.579.2 2003 Unknown [id number] 2.16840.1.355640.3.579.2 47 2003 Unknown [id number] 2.840.1.880743.3.579.2 47 2003 Unknown [id number] 2.16840.1.061559.3.579.2 2003 Unknown [id number] 2.16840.1.637897.3.579.2 47 2003 Unknown [id number] 2.16840.1.456159.3.579.2 479 2003 Unknown [id number] 2.16840.1.180133.3.579.2 47 2003 Unknown [id number] 2.16.840.1.051411.3.579.2. 479 2003 Unknown [id number] 2.16.840.1.603913.3.579.2. 479 2003 Unknown [id number] 2.16.840.1.258069.3.579.2. 479 Medicaid [id number] Unknown SELF PAY INSURANCE [id number] 01 [id number] Unknown [id number] Unknown [id number] 2.16.840.1.653132.3.579.2. 462 Unknown [id number] 2.16.840.1.457462.3.579.2. 462 Unknown [id number] 2.16.840.1.948617.3.579.2. 462 Unknown [id number] 2.16.840.1.086676.3.579.2. 462 Unknown [id number] 2.16.840.1.157208.3.579.2. 462 Unknown [id number] 2.16.840.1.773041.3.579.2. 462 Unknown [id number] 2.16.840.1.341945.3.579.2. 462 Unknown [id number] 2.16.840.1.914484.3.579.2. 462 Social History Date Type Detail Facility Start: 10-06-2019 End: 04-30-2024 Never smoked tobacco (finding) [facility] Sex Assigned At [facility] Start: 02-25-2022 End: 03-18-2023 Tobacco smoking status NHIS Unknown if ever smoked [facility] Start: 09-13-2019 With Family [facility]ga [facility] Start: 2003 Sex Assigned At Female W [facility] Start: 09-18-2016 Tobacco use and exposure Smokeless tobacco non-user [facility] Work Phone: Start: 04-13-2022 End: 04-26-2022 Alcohol intake Lifetime non-drinker (finding) [facility] Start: 04-13-2022 History SDOH Alcohol Frequency 1 [facility] Start: 2003 Sex Assigned At Not on file C [facility] Start: 04-03-2022 End: 04-26-2022 Exposure to SARS-CoV-2 (event) Not sure [facility] NEGATED: Highlighted row [facility] Mental Status Date Assessment Result Facility 11-25-2022 Cognitive function Level Of Cons ciousness Awake;Alert;Appropriate;Follow s Commands [facility] Work Phone: 09-21-2022 Cognitive function Level Of Cons ciousness Awake;Alert;Appropriate;Follow s Commands [facility] Work Phone: Clinical Notes 10-19-2021 to 01-07-2025 Note Date & Type Note Facility 01-07-2025 Evaluation note Diagnosis Onset Date Resolution Menorrhagia with regular cycle acute January 07, 025 8:08am Menorrhagia with regular cycle acute April 08, 2025 8 :35am Possible exposure to STI acute April 08, 2025 8 :35am Vaginal itching acute April 08, 2025 8:35am [facility] Work Phone: 1(792) 255-927106-13-2022 Miscellaneous Notes* Telephone Encounter - Liliya Coleman PA-C - 04/30/2022 7:17 AM EDT Is there any update on Linzess 290 mcg with her insurance? Also, anal manometry is ordered if we can set this up for her! Thank you! documented in [facility] NoteHNO ID: [id number] Author: Rosanne Haney RN Service: ? Author Type: Registered Nurse Type: Nursing Progress Note Filed: 04/26/2022 3:09 PM Note Text: Hob up. Passing air. States ready to go. assisted pt w/dressing. All belongings given. Opera Singer to get car.[facility]06-09-2022 NoteHNO ID: [id number] Author: Rosanne Haney RN Service: ? Author Type: Registered Nurse Type: Nursing Progress Note Filed: 04/26/2022 2:29 PM Note Text: Dr was at the bedside. No questions.[facility]06-09-2022 NoteHNO ID: [id number] Author: Rosanne Haney RN Service: ? Author Type: Registered Nurse Type: Nursing Progress Note Filed: 04/26/2022 2:21 PM Note Text: Mom at the bedside. Encouraged to pass the air.[facility] 04-26-2022 Nurse Note* Rosanne Haney RN - 04/26/2022 3:08 PM EDT Hob up. Passing air. States ready to go. assisted pt w/dressing. All belongings given. Opera Singer to get car. * Rosanne Haney RN - 04/26/2022 2:[address] was at the bedside. No questions. * Rosanne Haney RN - 04/26/2022 2:21 PM EDT Mom at the bedside. Encouraged to pass the air. documented in [facility] History and physical note * Ladarius Gutierrez [...] None Ladarius Gutierrez MD documented in this [facility]05-27-2022 NoteHNO ID: [id number] Author: Liliya Coleman PA-C Service: ? Author Type: Physician Mitigation Supervisor Type: Progress Notes Filed: 04/13/2022 2:06 PM Note Text: CHIEF COMPLAINT: Patient presents with: Constipation: Abdominal Pain- No appetite CT at [facility]- View CE Summarization 02/25 ER at [facility] and Xray 02/26 at [facility] This consult was requested by Self for an opinion regarding constipation, abdominal pain. My final recommendations will be communicated to the requesting health care provider by way of the shared medical record for internal providers or letter via the [employer] for external providers. HPI: Efrain Acosta is a 16 year old female who presents for Constipation (Abdominal Pain- No appetite CT at [facility]- View CE Summarization 02/25 ER at [facility] and Xray 02/26 at [facility] ). PMHx of ADD, anxiety, chronic headache [...] pain after drinking half the prep. At [facility] was given an enema with better [...] round, and reac (more content not included)... [facility]05-27-2022 Instructions* Patient Instructions* Liliya Coleman PA-C [...] If you do not have a responsible production truck driver (family member or friend) withyou to take you home, your exam cannot be done with sedation and will be cancelled. Please bring a list of all of your current medications, including any Xrhl-wvt-Hiyfreu medications with you. Medications If you take [...] your exam. 3 10/2019 documented in this [facility]05-[facility]22 History of Present illness Narrative* Liliya Coleman PA-C - 04/13/2022 1:18 PM EDT CHIEF COMPLAINT: Patient presents with: Constipation: Abdominal Pain- No appetite CT at [facility]- View CE Summarization 02/25 ER [facility] 02/26 at [facility] This consult was requested by Self for an opinion regarding constipation, abdominal pain. My final recommendations will be communicated to the requesting health care provider by way of the shared medical record for internal providers or letter via the [employer] for external providers. HPI: Efrain Acosta is a 16 year old female who presents for Constipation (Abdominal Pain- Noappetite CT at [facility]- View CE Summarization 02/25 ER at [facility] and Xray 02/26 at [facility] ). PMHx of ADD, anxiety, chronic headache [...] pain after drinking half the prep. At [facility] was given an enema with better [...] with more than 50% of the total dabc-dm-jnze time of the visit in counseling / coordination of care. I have confirmed and edited as necessary, the PFSH and ROS obtained by others. Liliya Coleman PA-C April 13, 2022 1:56 PM documented in this encounterSalem [facility]03-[facility]22 Hospital Discharge instructions Patient Education 01/26/2022 00:00:51 [...] relieved by rest and mild pain reliever [id number] [employer]. [address] [place] [address]. All rights reserved. This information is not intended as a substitute for professional medical care. Always follow yourhealthcare professional's instructions. Follow Up Care 01/25/2022 22:42:31 With:LEIDY DE PAZ DO Address: [address] [place] [phone] [phone] When:2-4 days [facility] 03-01-2022 Note. MICRO - Microbiology PROCEDURE: Urine [...] Locations *1: This test was performed at: [facility], [address] [place] [address], [address]- , [facility] ([place])01-13-2022 Hospital Discharge instructions Patient Education 01/13/2022 19:14:49 [...] swelling in the outer vaginal area (labia) [phone] [employer]. [address] [place] [address]. All rights reserved. This information is not [...] painful lymph nodes (lumps) in the groinTh [phone] [employer]. [address] [place] [address], [place] [address]. All rights reserved. This information is not intended as a substitute for professional medical care. Always follow yourhealthcare professional's instructions. Follow Up Care 01/13/2022 18:47:28 With:LEIDY DE PAZ DO Address: [address] [place] [address] [place] [address]- [phone] When:2-4 days With:Go to emergency room if symptoms worsen Address:Unknown When:2-4 days [facility] 02-26-2022 Evaluation + Plan note Diagnostic Tests Pending * Urine Culture 01/13/22 [facility] 01-29-2022 Hospital Discharge instructions Patient Education 12/16/2021 [...] a prescription antihistamine, oral diphenhydramine is an qwue-fwc-qjtzkjc antihistamine available at pharmacies and grocery stores. [...] or colored drainage from the affected area [phone] [employer]. [address] [place] [address]. All rights reserved. This information is not intended as a substitute for professional medical care. Always follow yourhealthcare professional's instructions. Follow Up Care 12/16/2021 14:44:07 With:LEIDY DE PAZ DO Address: [address] [place] [phone] [phone] When: only if needed [facility] 12-02-2021 Hospital Discharge instructions Patient Education 10/19/2021 [...] to keep medicine down Weakness or dizziness [phone] [employer] [place] [address]. All rights reserved. This information is not intended as a substitute for professional medical care. Always follow yourhealthcare professional's instructions. Follow Up Care 10/19/2021 14:35:53 With:LEIDY DE PAZ DO Address: [address] [place] [phone]- [phone] When:2-4 days With:LEIDY DE PAZ DO Address: [address] [place] [phone]- [phone] When:2-4 days [facility] Evaluation + Plan note No data available for this section [facility] Evaluation noteNo assessment information available [facility] Work Phone: Evaluation note* Diagnosis Chronic idiopathic constipation- Primary Unspecified constipation Generalized abdominal pain Abdominal pain, generalized Other fatigue Heartburn Nausea Nausea alone documented [facility] this encounter [facility] Diagnosis Chronic idiopathic constipation Unspecified constipation Generalized abdominal pain Abdominal pain, generalized Heartburn Nausea Nausea alone documented [facility] this encounter [facility]* Diagnosis Chronic idiopathic constipation- Primary Unspecified constipation documented in this encounter [facility]* Diagnosis Onset Date Resolution Status Menorrhagia with regular cycle acute Possible exposure to STD non eactive Contraception management non eactive [facility] Work Phone: Hospital Discharge instructions Additional Instructions You tested positive for influenza B and a urinary tract infection today. The antibiotic/Keflex will help control the UTI but the flu may persist for 7 to 10 days. Please take your medications as directed and return to the ER should you have any further concernsWPro[facility] Work Phone: Reason for referral (narrative)* Outpatient Procedure (Routine) - Authorized Specialty Diagnoses / Procedures Referred By Contac t Referred To Contact [facility] Diagnoses Generalized abdominal pain Heartburn Nausea Procedures EGD DIAGNOSTIC ESOPHAGOGASTRODUODENOS COPY TRANSORAL DIAGNOSTIC Liliya Coleman PA-C [address] [facility] [place] [address] [place] [phone] Referral ID Status Reason Start Date Expiration Date Visits Requested Visits Authorized [id number] Authorized Auto-Generat ed Referral 04/13/2022 04/13/2023 1 1 * Outpatient Procedure (Routine) - Authorized Specialty Diagnoses / Procedures Referred By Contac t Referred To Contact [facility] Diagnoses Chronic idiopathic constipation Generalized abdominal pain Procedures COLONOSCOPY DIAGNOSTIC COLONOSCOPY FLX DX W/COLLJ SPEC WHEN PFRMD Liliya Coleman PA-C [address] [place] [address] [address] Referral ID Status Reason Start Date Expiration Date Visits Requested Visits Authorized [id number] Authorized Auto-Generat ed Referral 04/13/2022 04/13/2023 1 1 * Medication Prior Authorization - Pending Review Specialty Diagnoses / Procedures Referred By Contac t Referred To Contact Diagnoses Chronic idiopathic constipation Liliya Coleman PA-C [address] [place] [address] Referral ID Status Reason Start Date Expiration Date V isits Requested Visits Authorized [id number] Pending Review 1 1 [facility] for referral (narrative)* Outpatient Procedure (Routine) - Closed Specialty Diagnoses / Procedures Referred By Makenzieac t Referred To Contact [facility] Diagnoses Generalized abdominal pain Heartburn Nausea Procedures EGD DIAGNOSTIC ESOPHAGOGASTRODUODENOS COPY TRANSORAL DIAGNOSTIC Liliya Coleman PA-C [address] [place] [address] [facility] [place] [address] [place] [address] Referral ID Status Reason Start Date Expiration Date V isits Requested Visits Authorized [id number] Closed Auto-Generate d Referral 04/13/2022 04/13/2023 1 1 * Outpatient Procedure (Routine) - Closed Specialty Diagnoses / Procedures Referred By Ene t Referred To Contact [facility] Diagnoses Chronic idiopathic constipation Generalized abdominal pain Procedures COLONOSCOPY DIAGNOSTIC COLONOSCOPY FLX DX W/COLLJ SPEC WHEN PFRMD Liliya Coleman PA-C [address] [place] [address] [facility] [address] [place] [address] Referral ID Status Reason Start Date Expiration Date V isits Requested Visits Authorized [id number] Closed Auto-Generate d Referral 04/13/2022 04/13/2023 1 1 [facility] for referral (narrative)* Outpatient Procedure (Routine) - Pending Review Specialty Diagnoses / Procedures Referred By Makenzieac t Referred To Contact [facility] Diagnoses Chronic idiopathic constipation Procedures [facility] ANORECTAL MANOMETRY ANORECTAL MANOMETRY Liliya Coleman PA-C [address] [place] [address] [facility] [address] [place] [id number] Referral ID Status Reason Start Date Expiration Date Visits Requested Visits Authorized [id number] Pending Review Auto-Generat ed Referral 04/30/2022 04/30/2023 1 1 [facility])No reason for referral information availableWProMedica [facility] Work Phone: Reason for visit Narrative* Outpatient Procedure (Routine) - Closed Specialty Diagnoses / Procedures Referred By Contac t Referred To Contact [facility] Diagnoses Generalized abdominal pain Heartburn Nausea Procedures EGD DIAGNOSTIC ESOPHAGOGASTRODUODENOS COPY TRANSORAL DIAGNOSTIC Liliya Coleman PA-C [address] [place] [address] [facility] [place] [address] [place] [address] Referral ID Status Reason Start Date Expiration Date V isits Requested Visits Authorized [id number] Closed Auto-Generate d Referral 04/13/2022 04/13/2023 1 1 [facility] Summary Purpose Family History No Family History Records Found Relationship Condition Age at Onset Recorded Date/T samuel grandfather Cardiac disease Unknown Myocardial infarction Unknown Advance Directives No Advanced Directives Records Found Advance Directive Response Recorded Date/ Time Living Will No February 25, 2022 2:25pm Power of Patient Financial Services Coordinator No February 25 2:25pm Documents on File Type Date 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 Advance Directive(s) 04/26/2022 12:55 PM Advance Directive Response Recorded Date/ Time Living Will No September 21 4:41pm Power of Patient Financial Services Coordinator No September 21, 2022 4:41pm Advance Directive Response Recorded Date/ Time Living Will No November 25 12:40am Power of Patient Financial Services Coordinator No November 25, 023 12:40am Advance Directive Response Recorded Date/ Time Living Will No March 18, 2023 2: 11pm Power of Patient Financial Services Coordinator No March 18, 2023 2:11pm Chief Complaint [...] section and content) DATE CREATED AUTHOR 02/14/2022 [facility] ([place]) DATE CREATED AUTHOR AUTHOR'S ORGANIZ ATION 04/28/2022 [facility] DATE CREATED AUTHOR AUTHOR'S ORGANIZ ATION 01/12/2023 [facility] DATE CREATED AUTHOR AUTHOR'S ORGANIZ ATION 09/26/2025 [facility] Goals (unrecognized section and content) Goals may be documented in a n alternate section Source Comments (unrecognize d section and content) In the event this informatio n is protected by the Federal Confidentiality of Alcohol and Drug Abuse Patient Records regulations: The Federal rules restrict any use of the information to criminally investigate or prosecute any alcohol or drug abuse patient.[facility] the event this information is protected by the Federal Confidentiality of Alcohol and Drug Abuse Patient Records regulations: The Federal rules restrict any use of the information to criminally investigate or prosecute any alcohol or drug abuse patient.[facility] Center[facility] the event this information is protected by the Federal Confidentiality of Alcohol and Drug Abuse Patient Records regulations: The Federal rules restrict any use of the information to criminally investigate or prosecute any alcohol or drug abuse patient.[facility] Center[facility] the event this information is protected by the Federal Confidentiality of Alcohol and Drug Abuse Patient Records regulations: The Federal rules restrict any use of the information to criminally investigate or prosecute any alcohol or drug abuse patient.[facility] Reason for Visit (unrecogniz ed section and content) Reason Comments Constipation Abdominal Pain- No a ppetite CT at [facility]- View CE Summarization 02/25 ER at [place] and Xray 02/26 at [facility] Care Teams (unrecognized sec tion and content) [employer] Relationship Specialty Start Date End Date Leidy De Paz [address] [place] [phone] (Fax) PCP - General Pediatrics 04/13/22 [employer]st Relationship Specialty Start Date End Date Leidy De Paz [address] [place] [phone] (Fax) PCP - General Pediatrics 04/13/22 [employer] Analyst Relationship Specialty Start Date End Date Leidy De Paz [address] [place] [phone] PCP - General Pediatrics 04/13/22 [employer] Analyst Relationship Specialty Start Date End Date Leidy De Paz [address] [place] [phone] PCP - General Pediatrics 04/13/22 Team Status: Active Member Role Status Dates Dr. Deanna Moreno MD Family Provider Active Dr. Leidy De Paz DO Primary Care Provider Active Team Status: Inactive Member Role Status Dates Dr. Leidy De Paz DO Primary Care Provider, Referri ng Provider Active Leatha Bassett FBI PROFILER FBI PROFILER-C Attending Provider Active Team Status: Inactive Member Role Status Dates Dr. Leidy De Paz DO Primary Care Provider Active Dr. Kiran Schreiber DO Attending Provider, Emergency Pr ovider Active Team Status: Inactive Member Role Status Dates Dr. Leidy De Paz DO Primary Care Provider Active Leatha Bassett NP [employer] PROFILER-C Attending Provider, Referring Provider Active Team Status: [...] BE BASED ON THE PRIMARY CLINICAL RECORDS. [facility] [employer] [facility]. provides no warranty or guarantee of the accuracy or completeness of information in this document.
[2025-10-27 12:22] LABS: Hematocrit 44.2 % (37-47); Hemoglobin 14.4 g/dL (12.0-15.0); Immature Granulocytes Count 0.020 X10^3/uL (0.0-0.0); Mean Corp Hgb Conc 32.6 g/dL (32-36); Mean Corpuscular Volume 92.5 fL (81-99); Mean Platelet Vol. 9.6 fl (6.2-12.0); NRBC Flagged by Analyzer 0 % (0-5); Platelet Count 314 K/mm3 (150-450); RBC Distribution Width CV 11.9 % (11.6-14.6); RBC Distribution Width SD 40.9 fl (35.1-43.9); Red Blood Count 4.78 M/mm3 (4.2-5.4); White Blood Count 6.9 K/mm3 (4.4-11.0)
== END | disposition home or self-care (01) ==
LOC: BWCLAB 12:02
PROVIDERS: PCP Pediatrics; Visit Provider Nurse Practitioner Women's Health
DX: N93.9 Abnormal uterine and vaginal bleeding, unspecified (principal)
CPT/HCPCS: 36415; 84443; 85025